=== PATIENT | female | born 1940 | race Caucasian/White ===

== ENCOUNTER 2018-03-31 08:48 | Inpatient (IN) ==
--- NOTE | 2018-03-31 09:12 | XR ---
EXAM DATE: 03/31/2018 8:49 AM EDT AGE/SEX: 89 years / Female INDICATIONS: Trauma alert. Found unresponsive CLINICAL DATA: This is the patient's initial encounter. Patient reports that signs and symptoms have been present for 1 day and indicates a pain score of Nonresponsive. MEDICAL/SURGICAL HISTORY: Non-responsive. Non-responsive. COMPARISON: No prior exams available for comparison. FINDINGS: Patient's on trauma board. There is an endotracheal tube in place which appears to be in good positio n. The tip is approximately 1 cm above the kamla. There is some atelectasis in the right lung base. The left lung is grossly clear. No definite pneumothorax is seen. The bony structures are grossly int act. CONCLUSION: 1. ET tube appears to be in good position. 2. There is atelectasis in the right lung base. 3. A CT chest will be performed for further evaluation. Electronically signed by: Jose Guadalupe Smallwood MD 03/31/2018 9:10 AM EDT
[2018-03-31 09:13] LABS: Hematocrit 46.5 % (35.0-46.0); Hemoglobin 15.2 gm/dL (11.6-15.3); Mean Corpuscular HGB Conc 32.8 % (32.0-36.0); Mean Corpuscular Hemoglobin 29.4 pg (27.0-34.0); Mean Corpuscular Volume 89.6 fL (80.0-100.0); Mean Platelet Volume 7.1 fL (7.0-11.0); Platelet Count 181 th/mm3 (150-450); Red Blood Count 5.19 mil/mm3 (4.00-5.30); Red Cell Distribution Width 14.5 % (11.6-17.2); White Blood Count 14.8 th/mm3 (4.0-11.0)
--- NOTE | 2018-03-31 09:13 | XR ---
EXAM DATE: 03/31/2018 8:49 AM EDT AGE/SEX: 89 years / Female INDICATIONS: Trauma alert. Found unresponsive today CLINICAL DATA: This is the patient's initial encounter. Patient reports that signs and symptoms have been present for 1 day and indicates a pain score of Nonresponsive. MEDICAL/SURGICAL HISTORY: Non-responsive. Non-responsive. COMPARISON: No prior exams available for comparison. FINDINGS: Patient's on a trauma board. The bony structures are grossly intact. There is good alignment at both hip joints. There is good alignment of the SI joints and pubic symphysis. CONCLUSION: The bony structures are grossly intact. A CT Abdomen and pelvis will be performed for further evaluat ion. Electronically signed by: Jose Guadalupe Smallwood MD 03/31/2018 9:12 AM EDT
[2018-03-31 09:26] LABS: Activated Partial Thrombo Time 22.4 sec (24.3-30.1); INR 1.1 Ratio; Prothrombin Time 11.1 sec (9.8-11.6)
--- NOTE | 2018-03-31 09:35 | CT ---
EXAM DATE: 03/31/2018 9:06 AM EDT AGE/SEX: 89 years / Female INDICATIONS: Trauma alert, found unresponsive CLINICAL DATA: This is the patient's initial encounter. Patient reports that signs and symptoms have been present for 1 day and indicates a pain score of Nonresponsive. MEDICAL/SURGICAL HISTORY: Non-responsive. Non-responsive. ORAL CONTRAST: No oral contrast ingested. RADIATION DOSE: 5.62 CTDI (mGy) ; Combined studies COMPARISON: [facility], CHEST 1V SINGLE AP, 03/31/2018. . TECHNIQUE: Multiple contiguous axial images were obtained through the abdomen and pelvis following b olus infusion of 95 ml Omnipaque 350 (iohexol) nonionic water-soluble contrast as a cumulative dose for multiple exams. No oral contrast ingested. Using automated exposure control and adjustment of t he mA and/or kV according to patient size, radiation dose was kept as low as reasonably achievable to obtain optimal diagnostic quality images. DICOM format image data is available electronically for r eview and comparison. FINDINGS: Lower Lungs: The visualized lower lungs are clear. There is a calcified granuloma in the posterior le ft lower lobe. Liver: The liver has a homogeneous density small benign-appearing cyst in the left lobe. There is no dilation of the biliary tree. There is mild hepatic steatosis. The gallbladder is unremarkable in mk earance. Spleen: Homogeneous density without enlargement. Pancreas: Unremarkable without mass or calcification. Kidneys: Normal in size and shape. No evidence of a solid mass or hydronephrosis. There are small si mple appearing cysts. Adrenal Glands: Unremarkable. Aorta: The aorta and proximal iliac vessels are grossly unremarkable without aneurysmal dilation. Bowel/Mesentery: No oral contrast was given limiting the sensitivity. There are multiple diverticuli in the sigmoid colon. The cecum and sigmoid colon have a normal configuration. Abdominal Wall: Intact. Retroperitoneum: No evidence of adenopathy in the retrocrural, para-aortic, or deep pelvic regions. Bladder: Contours are smooth. Reproductive Organs: No abnormal masses or calcifications seen. Inguinal: The inguinal region is unremarkable without evidence of adenopathy. Bony Structures: Osteopenia, degenerative change and scoliosis are present. There is no visualized f racture. CONCLUSION: 1. No evidence of visceral injury. 2. Mild hepatic steatosis with simple appearing cyst in the left lobe of liver. 3. Osteopenia, degenerative change and scoliosis are present. Electronically signed by: James Strong MD 03/31/2018 9:33 AM EDT
--- NOTE | 2018-03-31 09:37 | ED ---
HPI General Stated Complaint: Trauma Time Seen by Provider: 03/31/18 09:09 Source: EMS Limitations: altered mental status and physical limitation History of Present Illness HPI narrative: Is an 78-year-old woman, AKRafaela Phelps date of 1939, presents to the [facility] department after being found down. EMS states large number of pills next to her. Unclear she is on blood thinners or not. Unable to access any records in our system on her. Neighbors last saw her the night before. Dinner was uneven on the table.. She had been down for a while. She had blood on the floor. No other obvious external trauma. Small abrasion to the left elbow. Found laying on her left side. Related Data Allergies Allergy/AdvReac Type Severity Reaction Status Date / Time No Allergy Information Allergy Unverified 03/31/18 08:49 Available Review of Systems ROS Unobtainable ROS Unobtainable: unobtainable due to endotracheal tube and unobtainable due to mental condition Exam Narrative Exam Narrative: GENERAL: 78-year-old woman, obtunded. Intubated. SKIN: Scattered chronic appearing ecchymosis on the both upper extremities. There appears to be some morbidity and skin erythema on the left hip over the iliac crest. HEAD: Atraumatic. Normocephalic. EYES: Pupils equal and round. No scleral icterus. No injection or drainage. ENT: No nasal bleeding or discharge. Mucous membranes pink and moist. NECK: Cervical collar in place. No obvious abnormalities. CARDIOVASCULAR: Regular rate and rhythm. No murmur appreciated. RESPIRATORY: Breathing some spontaneously. Coarse breath sounds. ET tube in place. GASTROINTESTINAL: Mild abdominal distention MUSCULOSKELETAL: No obvious deformities. No edema. No obvious fractures. NEUROLOGICAL: Obtunded. Only response to painful stimulus is trace withdrawal from the right lower extremity to nailbed pressure. No movement of the other extremities. Medical Decision Making MDM Narrative Medical decision making narrative: 78-year-old woman, no medical history, found down, brought in as a trauma alert. No definite evidence of traumatic injuries. Suspect large stroke. Initial read of CT head is negative for large bleed is suspected. Pending final read. Spoke with Dr. Xavier. Dr. Lujan and hours at the bedside. Patient will be admitted to the geological specialist service. Medical Screen Exam Complete: Yes Emergency Medical Condition: Yes Lab Data Result diagrams: 03/31/18 08:55 Lab Results 03/31/18 03/31/18 03/31/18 Range/Units 08:55 08:55 08:55 WBC 14.8 H (4.0-11.0) th/mm3 RBC 5.19 (4.00-5.30) mil/mm3 Hgb 15.2 (11.6-15.3) gm/dL POC Hgb (Calc) 15.6 H (11.6-15.3) g/dL Hct 46.5 H (35.0-46.0) % POC Hct 46.0 (35-46.0) % MCV 89.6 (80.0-100.0) fL MCH 29.4 (27.0-34.0) pg MCHC 32.8 (32.0-36.0) % RDW 14.5 (11.6-17.2) % Plt Count 181 (150-450) th/mm3 MPV 7.1 (7.0-11.0) fL Prelim Diff (Auto) Manual diff required Differential Comment . PT 11.1 (9.8-11.6) sec INR 1.1 Ratio APTT 22.4 L (24.3-30.1) sec POC Sodium 129 L (137-144) mmol/L POC Potassium 3.9 (3.6-5.0) mmol/L POC Chloride 92 L (102-111) mmol/L POC BUN 5 (5-21) mg/dL POC Creatinine 0.7 (0.6-1.3) mg/dL POC Glucose 106 (68-110) mg/dL Blood Type 03/31/18 Range/Units 08:55 WBC (4.0-11.0) th/mm3 RBC (4.00-5.30) mil/mm3 Hgb (11.6-15.3) gm/dL POC Hgb (Calc) (11.6-15.3) g/dL Hct (35.0-46.0) % POC Hct (35-46.0) % MCV (80.0-100.0) fL MCH (27.0-34.0) pg MCHC (32.0-36.0) % RDW (11.6-17.2) % Plt Count (150-450) th/mm3 MPV (7.0-11.0) fL Prelim Diff (Auto) Differential Comment PT (9.8-11.6) sec INR Ratio APTT (24.3-30.1) sec POC Sodium (137-144) mmol/L POC Potassium (3.6-5.0) mmol/L POC Chloride (102-111) mmol/L POC BUN (5-21) mg/dL POC Creatinine (0.6-1.3) mg/dL POC Glucose (68-110) mg/dL Blood Type A Positive Imaging Data Radiologist's impression: Chest X-Ray 03/31/18 08:49 CONCLUSION: 1. ET tube appears to be in good position. 2. There is atelectasis in the right lung base. 3. A CT chest will be performed for further evaluation. Pelvis X-Ray 03/31/18 08:49 CONCLUSION: The bony structures are grossly intact. A CT Abdomen and pelvis will be performed for further evaluation. Abdomen/Pelvis CT 03/31/18 08:57 CONCLUSION: 1. No evidence of visceral injury. 2. Mild hepatic steatosis with simple appearing cyst in the left lobe of liver. 3. Osteopenia, degenerative change and scoliosis are present. Head CT 03/31/18 09:09 CONCLUSION: 1. Negative trauma study. . Discharge Plan Discharge Disposition Patient Disposition: 30 Still Patient Physicians Team ED Provider: Lisandro Hull Attending Provider: Dimitrios Olivas Status ED Status: Admitted Patient
--- NOTE | 2018-03-31 09:39 | CT ---
EXAM DATE: 03/31/2018 9:10 AM EDT AGE/SEX: 89 years / Female INDICATIONS: Trauma alert, found unresponsive CLINICAL DATA: This is the patient's initial encounter. Patient reports that signs and symptoms have been present for 1 day and indicates a pain score of Nonresponsive. MEDICAL/SURGICAL HISTORY: Non-responsive. Non-responsive. RADIATION DOSE: 66.34 CTDI (mGy) COMPARISON: No prior exams available for comparison. TECHNIQUE: CT of the head without contrast. Using automated exposure control and adjustment of the mA and/or kV according to patient size, radiation dose was kept as low as reasonably achievable to ob tain optimal diagnostic quality images. DICOM format image data is available electronically for revi ew and comparison. FINDINGS: Cerebrum: The ventricles are normal for age. No evidence of midline shift, mass lesion, hemorrhage or acute infarction. No extraaxial fluid collections are seen. Posterior Fossa: The cerebellum and brainstem are intact. The 4th ventricle is midline. The cerebe llopontine angle is unremarkable. Extracranial: The visualized portion of the orbits is intact. Skull: The calvaria is intact. No evidence of skull fracture. CONCLUSION: 1. Negative trauma study. . Electronically signed by: James Strong MD 03/31/2018 9:38 AM EDT
--- NOTE | 2018-03-31 09:46 | CT ---
EXAM DATE: 03/31/2018 9:06 AM EDT AGE/SEX: 89 years / Female INDICATIONS: Trauma alert, found unresponsive CLINICAL DATA: This is the patient's initial encounter. Patient reports that signs and symptoms have been present for 1 day and indicates a pain score of Nonresponsive. MEDICAL/SURGICAL HISTORY: Non-responsive. Non-responsive. RADIATION DOSE: 5.24 CTDI (mGy) ; Combined studies COMPARISON: No prior exams available for comparison. TECHNIQUE: Multiple contiguous axial images were obtained through the chest during bolus infusion of 95 ml Omnipaque 350 (iohexol) nonionic water-soluble contrast as a cumulative dose for multiple exa ms. Images were obtained in suspended respiration using multiple row detector helical technique. U sing automated exposure control and adjustment of the mA and/or kV according to patient size, radiati on dose was kept as low as reasonably achievable to obtain optimal diagnostic quality images. DICOM format image data is available electronically for review and comparison. FINDINGS: Lungs: There is underlying emphysema. There is a calcified granuloma in the posterior left lower lob e. There is a 2.8 x 1.8 cm soft tissue mass along the right side of the mediastinum anterior to the h ilum. Mediastinum: There is good visualization of the great vessels of the middle mediastinum. No evidenc e of mediastinal or hilar adenopathy/mass. Pleurae: No evidence of focal thickening or pleural effusion. Axillae: Unremarkable. Bony Structures: Osteopenia, degenerative change and scoliosis are present. There are 3 moderate to severe compression fracture deformities in the lower thoracic spine which appears sclerotic. Degenera tive disc changes present as well. Miscellaneous: The examination was extended to include the upper abdomen, and both adrenal glands ar e normal in size and configuration. Mild hepatic steatosis is noted in the liver. There is a simple a ppearing cyst in the left lobe measuring approximately 1 cm. CONCLUSION: 1. No acute visceral injury. 2. 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 3. 3 moderate to severe compression fracture deformities in the lower thoracic spine with sclerosis. These likely are chronic. Electronically signed by: James Strong MD 03/31/2018 9:45 AM EDT
--- NOTE | 2018-03-31 09:49 | CT ---
EXAM DATE: 03/31/2018 9:10 AM EDT AGE/SEX: 89 years / Female INDICATIONS: Trauma alert, found unresponsive CLINICAL DATA: This is the patient's initial encounter. Patient reports that signs and symptoms have been present for 1 day and indicates a pain score of Nonresponsive. MEDICAL/SURGICAL HISTORY: Non-responsive. Non-responsive. RADIATION DOSE: 24.98 CTDI (mGy) COMPARISON: No prior exams available for comparison. TECHNIQUE: Contiguous axial images were obtained using helical multirow detector technique. The vol umetric data was post-processed with multiplanar reconstruction in oblique axial, sagittal, and coron al planes. Using automated exposure control and adjustment of the mA and/or kV according to patient s ize, radiation dose was kept as low as reasonably achievable to obtain optimal diagnostic quality grace ges. DICOM format image data is available electronically for review and comparison. FINDINGS: Vertebrae: Normal vertebral body height. There is diffuse osteopenia. Discs: Degenerative disc changes are present at the C4-5, C5-6 and C6-7 levels with disc spac e narrowing and hypertrophic change. Alignment: There is a mild grade 1 anterior spondylolisthesis of C7 on T1 of approximately 2 to 3 mm . There is mild retrolisthesis of C4 on C5 of 1 to 2 mm. The axial images demonstrate that the vertebral bodies and posterior elements are intact with no evid ence of fracture. The prevertebral soft tissues within normal limits. An endotracheal tube is present . There are disc osteophyte complexes at C4-5, C5-6 and C6-7 levels with mass effect on the anterior thecal sac. CONCLUSION: 1. No acute fracture. 2. Mild anterior spondylolisthesis of C7 on T1 and mild retrolisthesis of C4 on C5. 3. Degenerative disc changes. Electronically signed by: James Strong MD 03/31/2018 9:48 AM EDT
[2018-03-31 09:50] LABS: Lymphocytes 4 % (9-44); Monocytes 5 % (0-8)
[2018-03-31 09:53] LABS: Burr Cells 1+; Ovalocytes 1+; Platelet Estimate Normal (Normal); Platelet Morphology Normal (Normal)
[2018-03-31 09:57] LABS: CKMB Percent 1.4 % (0.0-4.0); Creatine Kinase MB 18.5 ng/mL (0.5-3.6)
[2018-03-31] MEDS ORDERED: Bisacodyl 10 MG Supp RECTAL PRN (10:04)
--- NOTE | 2018-03-31 10:21 | MH ---
cc: Wander Dennison MD DATE OF ADMISSION: 03/31/2018 DATE OF TRAUMA: 03/31/2018. CHIEF COMPLAINT: Trauma Alert. HISTORY OF PRESENT ILLNESS: The patient is an elderly, 68-year-old female, who was brought to [facility] as a Trauma Alert. She was found down in her home with a small amount of blood on the floor. She was also, of note, found to be a GCS of 3 on initial evaluation, and there was high suspicion of trauma at that time. The patient was brought in as a Trauma Alert level 1 due to altered mental status. The patient had a stable blood pressure and was tachycardic. The patient underwent RSI intubation. Upon arrival, the patient was verified to have an intact airway with endotracheal tube, and had a heart rate into the 130s, and blood pressure was hypertensive. The sats were 100% on a ventilator. Per EMS report, the patient did have some alcohol in the home, also had a large amount of medications on the dining room table. The patient also had uneaten dinner from last night and neighbors reported not seeing the patient overnight. Review of systems, past medical and surgical history, allergies, medications, social and family history were all unable to obtain due to the patient's altered mental status. PHYSICAL EXAMINATION: VITAL SIGNS: Temperature is 97 degrees rectal, heart rate sinus tachycardic and over 100. Blood pressure was systolic sustained over 120. GENERAL: The patient is a chronically and acutely ill-appearing female, intubated in the trauma bay. HEENT: Head is normocephalic, atraumatic. Pupils are sluggish, but bilaterally reactive. Oral cavity is endotracheally intubated. Midface is stable. NECK: Cervical collar is in place. Cervical spine is without deformity. CHEST: Chest wall stable without deformity. Breath sounds present bilaterally. HEART: Tachycardic, no murmurs. ABDOMEN: Soft. No seatbelt sign. No hepatosplenomegaly. No signs of trauma. FAST exam is negative x4 views. MUSCULOSKELETAL: Pelvis is stable without deformity. EXTREMITIES: Show chronic edema. There is an IO in the left tibia. There is some chronic ecchymosis and bruising, indicative of chronic anticoagulation use. No acute ecchymosis or signs of trauma. No deformity to 4 extremities. BACK: No thoracic or lumbar deformity. NEUROLOGIC: The patient's GCS is 6 (E1, V1, M4). Patient responds by withdrawing of the right lower extremity to pain. LABORATORY VALUES: White blood cell count 14, hemoglobin 15.2. INR 1.1. Creatinine is 0.7, glucose 106, sodium 129. IMAGING: CT scan of the patient's head shows no acute intracranial trauma. A CT scan of the patient's abdomen and pelvis shows no evidence of trauma. ASSESSMENT AND PLAN: The patient is an elderly female found down at home with chronic medical issues, possible alcohol use, GCS 6, intubated, hemodynamically unstable with hypothermia and tachycardia. The patient has no signs of a traumatic injury. The patient clearly had a medical event leading to her clinical condition, and the patient will be admitted to the medical bobtailer service. We will defer to the medical service for further care and transfer to their service. Dr. uHll discussed the patient with Dr. Olivas at 9:45 a.m. MD LEELA Prado/rh , 09:51 AM , 10:03 AM
--- NOTE | 2018-03-31 10:31 | P.HPCC ---
History of Present Illness Service: Critical care medicine Chief Complaint: Unresponsive, probable stroke History of Present Illness: Disheveled 78-year-old woman found down by EMS who state a large number of pills were next to her. Neighbors last saw her the night before. Required intubation and mechanical ventilation because of an inability to protect her airway. Left side is flaccid and her eyes are deviated to the left side, with intermittent horizontal nystagmus. CAT scan of the head without acute injury. The remainder of the traumagram is negative. I have met her on her arrival to the [facility]. - Diagnosis (1) Encephalopathy acute (2) CVA (cerebral vascular accident) (3) Respiratory failure Inpatient Certification: I certify that the inpatient services were ordered in accordance with Medicare regulations governing the order. This includes certification that hospital inpatient services are reasonable and necessary and in the case of services not specified as inpatient-only under 42 CFR 419.22(n), that they are appropriately provided as inpatient services in accordance to with the 2-midnight benchmark under 43 CFR 412.3(e) Estimated Total Length of Stay (Days): 5 Plans for Post Hospital Care: SNF Review of Systems Unavailable and unobtainable. Patient unresponsive. No family. Medications and Allergies Active Medications: Active Medications Acetaminophen (Tylenol) 650 mg PO Q6H PRN PRN Reason: PAIN 1-10 AND/OR FEVER >101F Al Hydroxide/Mg Hydroxide (Milk Of Candice Liaron) 30 ml PO Q12H PRN PRN Reason: Mild Constipation Albuterol (Duoneb Neb (Prn)) 1 ampul NEB Q2HR NEB PRN PRN Reason: WHEEZING Bisacodyl (Dulcolax Supp) 10 mg RECTAL DAILY PRN PRN Reason: SEVERE CONSITIPATION Chlorhexidine Gluconate (Peridex 0.12% Oral Kit) 15 ml OROPHARYNG BID@0800, 2000 [facility] Chlorhexidine Gluconate (Chlorhexidine 2% Cloth) 3 pack TOPICAL DAILY@0400 [facility] Stop: 04/06/18 03:59 Chlorhexidine Gluconate (Chlorhexidine 2% Cloth) 3 pack TOPICAL DAILY@0400 PRN PRN Reason: Extra cloth needed Stop: 04/06/18 03:59 Famotidine (Pepcid Pf Inj) 20 mg IV.PUSH Q12HR [facility] Heparin Sodium (Porcine) (Heparin Inj) 5,000 units SQ Q12H [facility] Sodium Chloride (Ns Inj) 1,000 mls @ 84 mls/hr IV.CONT .[id number] [facility] Lactulose (Lactulose Liq) 30 ml PO DAILY PRN PRN Reason: SEVERE CONSITIPATION Miscellaneous Medication () 1 each OROPHARYNG 0000,0400,1200,1600 [facility] Morphine Sulfate (Morphine Inj) 2 mg IV.PUSH Q2H PRN PRN Reason: PAIN SCALE 6 TO 10 Senna/Docusate Sodium (Ce-Colace) 1 tab PO BID [facility] Sennosides (Senokot) 17.2 mg PO Q12H PRN PRN Reason: Moderate Constipation Sodium Chloride (Ns Flush) 2 ml IV.FLUSH BID [facility] Sodium Chloride (Ns Flush) 2 ml IV.FLUSH PRN PRN PRN Reason: FLUSH AFTER USING IV ACCESS Allergies Allergy/AdvReac Type Severity Reaction Status Date / Time No Allergy Information Allergy Unverified 03/31/18 08:49 Available Results - Labs CBC & Chem 7: 03/31/18 08:55 Labs: Short CBC 03/31/18 Range/Units 08:55 WBC 14.8 H (4.0-11.0) th/mm3 Hgb 15.2 (11.6-15.3) gm/dL Hct 46.5 H (35.0-46.0) % Plt Count 181 (150-450) th/mm3 Cardiac Enzymes 03/31/18 Range/Units 08:55 Total Creatine Kinase 1368 H (26-192) U/L CK-MB (CK-2) 18.5 H (0.5-3.6) ng/mL - Imaging Impressions Chest X-Ray 03/31/18 08:49 CONCLUSION: 1. ET tube appears to be in good position. 2. There is atelectasis in the right lung base. 3. A CT chest will be performed for further evaluation. Pelvis X-Ray 03/31/18 08:49 CONCLUSION: The bony structures are grossly intact. A CT Abdomen and pelvis will be performed for further evaluation. Abdomen/Pelvis CT 03/31/18 08:57 CONCLUSION: 1. No evidence of visceral injury. 2. Mild hepatic steatosis with simple appearing cyst in the left lobe of liver. 3. Osteopenia, degenerative change and scoliosis are present. Chest CT 03/31/18 08:57 CONCLUSION: 1. No acute visceral injury. 2. 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 3. 3 moderate to severe compression fracture deformities in the lower thoracic spine with sclerosis. These likely are chronic. Cervical Spine CT 03/31/18 09:09 CONCLUSION: 1. No acute fracture. 2. Mild anterior spondylolisthesis of C7 on T1 and mild retrolisthesis of C4 on C5. 3. Degenerative disc changes. Head CT 03/31/18 09:09 CONCLUSION: 1. Negative trauma study. . Exam Vital signs: Vital Signs 03/31/18 09:11 Respiratory Rate 15 Pulse Oximetry 100 Narrative: Physical exam: GENERAL: Disheveled 78-year-old woman, unresponsive, intubated. SKIN: Scattered chronic appearing ecchymosis on the both upper extremities. Same over left hip. HEAD: Atraumatic. Normocephalic. EYES: Pupils equal and round. No scleral icterus. No injection or drainage. Horizontal nystagmus. ENT: No nasal bleeding or discharge. Mucous membranes pink and moist. Oral tracheal intubation in place. NECK: Cervical collar in place. No obvious abnormalities. CARDIOVASCULAR: Regular rate and rhythm. Normal S1-S2. No murmur appreciated. No JVD. RESPIRATORY: Mechanically ventilated. Coarse breath sounds with few mobile secretions. GASTROINTESTINAL: Mild abdominal distention, no guarding, bowel sounds few. MUSCULOSKELETAL: No obvious deformities. No edema. No obvious fractures. NEUROLOGICAL: Obtunded. Pupils 3 mm with horizontal nystagmus to the left side. Left arm and leg are flaccid. Withdraws to right arm noxious stimulation and right leg noxious stimulation. Caprini VTE Risk Assessment Caprini VTE Risk Assessment: No/Low Risk (score <= 1) Caprini Risk Assessment Model: Point Value = 1 Point Value = 2 Point Value = 3 Point Value = 5 Age 41-60 Minor surgery BMI > 25 kg/m2 Swollen legs Varicose veins or History of unexplained or recurrent spontaneous Oral contraceptives or hormone replacement Sepsis (< 1 month) Serious lung disease, including pneumonia (< 1 month) Abnormal pulmonary function Acute myocardial infarction Congestive heart failure (< 1 month) History of inflammatory bowel disease Medical patient at bed rest Age 61-74 Arthroscopic surgery Major open surgery (> 45 min) Laparoscopic surgery (> 45 min) Malignancy Confined to bed (> 72 hours) Immobilizing plaster cast Central venous access Age >= 75 History of VTE Family history of VTE Factor V Leiden Prothrombin [id number] Lupus anticoagulant Anticardiolipin antibodies Elevated serum homocysteine Heparin-induced thrombocytopenia Other congenital or acquired thrombophilia Stroke (< 1 month) Elective arthroplasty Hip, pelvis, or leg fracture Acute spinal cord injury (< 1 month) Prophylaxis Regimen: Total Risk Factor Score Risk Level Prophylaxis Regimen 0-1 Low Early ambulation 2 Moderate Order ONE of the following: *Sequential Compression Device (SCD) *Heparin 5000 units SQ BID 3-4 Higher Order ONE of the following medications: *Heparin 5000 units SQ TID *Enoxaparin/Lovenox 40 mg SQ daily (WT < 150 kg, CrCl > 30 mL/min) *Enoxaparin/Lovenox 30 mg SQ daily (WT < 150 kg, CrCl > 10-29 mL/min) *Enoxaparin/Lovenox 30 mg SQ BID (WT < 150 kg, CrCl > 30 mL/min) AND/OR *Sequential Compression Device (SCD) 5 or more Highest Order ONE of the following medications: *Heparin 5000 units SQ TID (Preferred with Epidurals) *Enoxaparin/Lovenox 40 mg SQ daily (WT < 150 kg, CrCl > 30 mL/min) *Enoxaparin/Lovenox 30 mg SQ daily (WT < 150 kg, CrCl > 10-29 mL/min) *Enoxaparin/Lovenox 30 mg SQ BID (WT < 150 kg, CrCl > 30 mL/min) AND *Sequential Compression Device (SCD) Assessment and Plan - Problem List (1) Encephalopathy acute Code(s): G93.40 - Encephalopathy, unspecified Status: Acute (2) CVA (cerebral vascular accident) Code(s): I63.9 - Cerebral infarction, unspecified Status: Acute (3) Respiratory failure Code(s): J96.90 - Respiratory failure, unspecified, unspecified whether with hypoxia or hypercapnia Status: Acute - Assessment and Plan Plan: Plan: Neuro -repeat CAT scan after 24 hours -Consider MRI -Toxicology screen -Minimize sedation -EEG -Neurology consultation after 24 hours if no improvement -Baseline Keppra for possible nonconvulsive seizures Respiratory -PRVC ventilatory mode -ABG after 45 minutes -Withdrawal endotracheal tube by 4 cm. Cardiovascular -Tolerate blood pressure 160-220 Renal -Check creatine kinase -Dilute urine -Alkalinize if necessary GI -Nasogastric tube to low intermittent suction -P.o. meds down tube is acceptable Hematology -Serial hemoglobin determination ID -Culture for fevers -No evidence of infection at this time Prophylaxis -Chemical DVT prophylaxis with heparin subcu -Pepcid for GI ulcer prophylaxis Lines -Peripherals -Discontinue interosseous left lower leg Overall impression: This woman is critically ill with a major new neurological deficit and is ventilator dependent. Timelines this may be a simple stroke but we will pursue the avenues of potential drug overdose and trauma as well. Critical care time 42 minutes aside from procedures.
[2018-03-31] MEDS ORDERED: Midazolam Inj 5 MG/ML 1 ML Vial ONE (11:31)
[2018-03-31 11:42] LABS: ABG Base Excess -0.7 mmol/L (-2-2); ABG PCO2 40 mmHg (38-42); ABG PO2 86 mmHg (61-120)
[2018-03-31] MEDS ORDERED: Sod Chloride 0.9% Inj 1,000 ML IV.SIG SCH (11:45)
[2018-03-31] MEDS: Sod Chloride 0.9% Inj 1,000 ML IV.CONT SCH (12:30)
--- NOTE | 2018-03-31 12:34 | XR ---
EXAM DATE: 03/31/2018 12:00 AM EDT AGE/SEX: 78 years / Female INDICATIONS: Decreased O2 sats. CLINICAL DATA: This is the patient's subsequent encounter. Patient reports that signs and symptoms h ave been present for 1 day and indicates a pain score of Nonresponsive. MEDICAL/SURGICAL HISTORY: Non-responsive. Non-responsive. COMPARISON: C, CHEST 1V SINGLE AP, 03/31/2018. . FINDINGS: The endotracheal tube and NG tube remain in place. There is some mild parenchymal changes overlying t he left lung. The right lung is grossly clear. No definite pneumothorax. The heart size is stable. No significant pleural effusions. The bony structures are stable. CONCLUSION: 1. The ET tube and NG tube are in good position. 2. Mild parenchymal changes are seen overlying the left lung. Electronically signed by: Jose Guadalupe Smallwood MD 03/31/2018 12:33 PM EDT
--- NOTE | 2018-03-31 14:45 | MG ---
cc: Shakila Garcia MD REFERRING: Dimitrios Olivas AGE: [age] years old. EEG NUMBER: [id number] In room 1326 with photic stimulation, 2 mg of Ativan at 11:30, intubated. CT negative 03/31/2018, per nursing, she had a seizure. Right hand started to shake, right leg then started and then went to the whole body. Apparently was found unresponsive with a large number of pills next to her. DESCRIPTION OF RECORD: There is an overall slowing in the background 2-3 Hz. Seen bilaterally. There is no epileptiform features. Hyperventilation not done. Photic stimulation, no driving response. IMPRESSION: Abnormal EEG due to severely suppressed background may be consistent with encephalopathic process. No epileptiform features. Clinical correlation. Shakila Garcia MD DF/ct , 02:32 PM , 02:38 PM
[2018-03-31] MEDS ORDERED: Phenylephrine Inj 40 MG in Sodium Chlor 0.9% Inj 496 ML IV.CONT PRN (16:00)
[2018-03-31] MEDS: Oral Hygiene Kit OROPHARYNG SCH (17:19)
[2018-03-31] MEDS: hydrALAZINE 50 MG Tablet PO SCH ×2 (17:19→17:28)
[2018-03-31] MEDS: Metoprolol Tartrate 25 MG Tablet PO SCH ×2 (17:20→17:28)
[2018-03-31] MEDS: Heparin - SQ 10,000 UNITS/ML Vial SQ SCH ×2 (17:20→23:03)
[2018-03-31] MEDS: levETIRAcetam 1000mg/100mL Inj 100 ML IV.SIG SCH (17:28)
[2018-03-31] MEDS: Acetaminophen 325 MG Tablet PO PRN ×2 (17:46→23:03)
--- NOTE | 2018-03-31 18:00 | P.CONNEU ---
History of Present Illness Service: Neurology Primary Care Provider: UNKNOWN Chief Complaint: Unresponsive, probable stroke History of Present Illness: 78-year-old female admitted for mental status changes onset unknown. Some question of "large pills" next to her when she was found. Intubated for airway protection. Currently critical care unit. She is noted to have a generalized convulsion this afternoon. Apparently had right gaze deviation during the seizure. CT brain scan negative. No further history from patient no family bedside. Medical chart reviewed. Mild leukocytosis, mild hyponatremia sodium 129. Review of Systems All other systems reviewed negative except as stated in HPI Medications and Allergies Active Medications: Active Medications Acetaminophen (Tylenol) 650 mg PO Q6H PRN PRN Reason: PAIN 1-10 AND/OR FEVER >101F Last Admin: 03/31/18 17:46 Dose: 650 mg Al Hydroxide/Mg Hydroxide (Milk Of Candice Walsh) 30 ml PO Q12H PRN PRN Reason: Mild Constipation Albuterol (Duoneb Neb (Prn)) 1 ampul NEB Q2HR NEB PRN PRN Reason: WHEEZING Bisacodyl (Dulcolax Supp) 10 mg RECTAL DAILY PRN PRN Reason: SEVERE CONSITIPATION Chlorhexidine Gluconate (Peridex 0.12% Oral Kit) 15 ml OROPHARYNG BID@0800, 2000 [facility] Chlorhexidine Gluconate (Chlorhexidine 2% Cloth) 3 pack TOPICAL DAILY@0400 [facility] Stop: 04/06/18 03:59 Chlorhexidine Gluconate (Chlorhexidine 2% Cloth) 3 pack TOPICAL DAILY@0400 PRN PRN Reason: Extra cloth needed Stop: 04/06/18 03:59 Clonidine HCl (Catapres) 0.1 mg PO Q6H PRN PRN Reason: SBP > 180 Famotidine (Pepcid Pf Inj) 20 mg IV.PUSH Q12HR [facility] Heparin Sodium (Porcine) (Heparin Inj) 5,000 units SQ Q12H [facility] Last Admin: 03/31/18 17:20 Dose: Not Given Hydralazine HCl (Apresoline) 50 mg PO TID [facility] Last Admin: 03/31/18 17:28 Dose: 50 mg Sodium Chloride (Ns Inj) 1,000 mls @ 84 mls/hr IV.CONT .[id number] [facility] Last Admin: 03/31/18 12:30 Dose: 84 mls/hr Phenylephrine HCl 40 mg/ (Sodium Chloride) 500 mls @ 30 mls/hr IV.CONT TITRATE PRN; Protocol PRN Reason: See Protocol Last Titration: 03/31/18 14:45 Dose: 0 mcg/min, 0 mls/hr Levetiracetam (Keppra 1000 Mg/100 Ml Premix) 100 mls @ 400 mls/hr IV.SIG Q12H [facility] Last Admin: 03/31/18 17:28 Dose: 400 mls/hr Lactulose (Lactulose Liq) 30 ml PO DAILY PRN PRN Reason: SEVERE CONSITIPATION Lorazepam (Ativan Inj) 1 mg IV.PUSH Q15M PRN PRN Reason: SEIZURES Metoprolol Tartrate (Lopressor) 25 mg PO TID [facility] Last Admin: 03/31/18 17:28 Dose: 25 mg Miscellaneous Medication () 1 each OROPHARYNG 0000,0400,1200,1600 [facility] Last Admin: 03/31/18 17:19 Dose: 1 each Morphine Sulfate (Morphine Inj) 2 mg IV.PUSH Q2H PRN PRN Reason: PAIN SCALE 6 TO 10 Senna/Docusate Sodium (Ce-Colace) 1 tab PO BID [facility] Sennosides (Senokot) 17.2 mg PO Q12H PRN PRN Reason: Moderate Constipation Sodium Chloride (Ns Flush) 2 ml IV.FLUSH BID [facility] Sodium Chloride (Ns Flush) 2 ml IV.FLUSH PRN PRN PRN Reason: FLUSH AFTER USING IV ACCESS Allergies Allergy/AdvReac Type Severity Reaction Status Date / Time No Allergy Information Allergy Unverified 03/31/18 08:49 Available Exam Vital signs: Vital Signs 03/31/18 09:11 03/31/18 12:56 03/31/18 15:42 Respiratory Rate 15 17 25 H Pulse Oximetry 100 100 92 L Intake & Output 03/30/18 03/31/18 03/31/18 18:59 06:59 18:59 Weight 65.1 kg Narrative: GENERAL: in NAD, SKIN: Warm and dry. HEAD: Atraumatic. Normocephalic. EYES: Pupils equal and round. No scleral icterus. ENT: No nasal bleeding or discharge. Mucous membranes pink and moist. NECK: Trachea midline. No JVD. CARDIOVASCULAR: Regular rate and rhythm. RESPIRATORY: Intubated no accessory muscle use. GASTROINTESTINAL: Abdomen soft, non-tender, nondistended. MUSCULOSKELETAL: Coma state nonresponsive not following nonverbal, not on any sedation at present time, sluggish reactive pupils no significant gaze deviation minimal withdrawal in the upper or lower extremities plantarflexion no clonus elicited PSYCHIATRIC: Intubated Results - Labs CBC & Chem 7: 03/31/18 08:55 Labs: Laboratory Results - last 24 hr 03/31/18 03/31/18 03/31/18 08:55 08:55 08:55 WBC 14.8 H RBC 5.19 Hgb 15.2 POC Hgb (Calc) 15.6 H Hct 46.5 H POC Hct 46.0 MCV 89.6 MCH 29.4 MCHC 32.8 RDW 14.5 Plt Count 181 MPV 7.1 Prelim Diff (Auto) Manual diff required WBC Differential Manual diff final Seg Neuts % (Manual) 83 H Band Neuts % (Manual) 8 H Lymphocytes % (Manual) 4 L Monocytes % (Manual) 5 Abs Neuts (Manual) 13.5 H Differential Comment . Platelet Estimate Normal Platelet Morphology Normal Ovalocytes 1+ H Dami Cells 1+ H PT 11.1 INR 1.1 APTT 22.4 L Puncture Site Patient Temperature O2 Saturation ABG pH ABG pCO2 ABG pO2 ABG HCO3 ABG O2 Content ABG Base Excess ABG Methemoglobin Bryce Test Hemoglobin Carboxyhemoglobin O2 Delivery Device Vent Setting Inspired O2 Critical Value POC Sodium 129 L POC Potassium 3.9 POC Chloride 92 L POC BUN 5 POC Creatinine 0.7 POC Glucose 106 Total Creatine Kinase CK-MB (CK-2) CK-MB (CK-2) % Blood Type Antibody Screen 03/31/18 03/31/18 03/31/18 08:55 08:55 11:15 WBC RBC Hgb POC Hgb (Calc) Hct POC Hct MCV MCH MCHC RDW Plt Count MPV Prelim Diff (Auto) WBC Differential Seg Neuts % (Manual) Band Neuts % (Manual) Lymphocytes % (Manual) Monocytes % (Manual) Abs Neuts (Manual) Differential Comment Platelet Estimate Platelet Morphology Ovalocytes [place] Cells PT INR APTT Puncture Site Right radial Patient Temperature 98.6 O2 Saturation 94 ABG pH 7.39 ABG pCO2 40 ABG pO2 86 ABG HCO3 24 ABG O2 Content 20.0 ABG Base Excess -0.7 ABG Methemoglobin 1.0 Bryce Test Present Hemoglobin 15.1 Carboxyhemoglobin 1.2 O2 Delivery Device Ventilator Vent Setting Prvc/ac Inspired O2 100 Critical Value No POC Sodium POC Potassium POC Chloride POC BUN POC Creatinine POC Glucose Total Creatine Kinase 1368 H CK-MB (CK-2) 18.5 H CK-MB (CK-2) % 1.4 Blood Type A Positive Antibody Screen Negative - Imaging Impressions Chest X-Ray 03/31/18 00:00 CONCLUSION: 1. The ET tube and NG tube are in good position. 2. Mild parenchymal changes are seen overlying the left lung. Chest X-Ray 03/31/18 08:49 CONCLUSION: 1. ET tube appears to be in good position. 2. There is atelectasis in the right lung base. 3. A CT chest will be performed for further evaluation. Pelvis X-Ray 03/31/18 08:49 CONCLUSION: The bony structures are grossly intact. A CT Abdomen and pelvis will be performed for further evaluation. Abdomen/Pelvis CT 03/31/18 08:57 CONCLUSION: 1. No evidence of visceral injury. 2. Mild hepatic steatosis with simple appearing cyst in the left lobe of liver. 3. Osteopenia, degenerative change and scoliosis are present. Chest CT 03/31/18 08:57 CONCLUSION: 1. No acute visceral injury. 2. 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 3. 3 moderate to severe compression fracture deformities in the lower thoracic spine with sclerosis. These likely are chronic. Cervical Spine CT 03/31/18 09:09 CONCLUSION: 1. No acute fracture. 2. Mild anterior spondylolisthesis of C7 on T1 and mild retrolisthesis of C4 on C5. 3. Degenerative disc changes. Head CT 03/31/18 09:09 CONCLUSION: 1. Negative trauma study. . Review/Management - Diagnosis (1) Encephalopathy acute Code(s): G93.40 - Encephalopathy, unspecified Status: Acute Current Visit: Yes (2) Seizure Code(s): R56.9 - Unspecified convulsions Status: Acute Current Visit: Yes (3) Respiratory failure Code(s): J96.90 - Respiratory failure, unspecified, unspecified whether with hypoxia or hypercapnia Status: Acute Current Visit: Yes - Review/Management Plan: Etiology for encephalopathy; toxic metabolic versus cerebral ischemia versus toxic ingestion/EtOH withdrawal Recommendation EEG MRI brain IV acyclovir IV Celebrex CSF studies Follow exam Discussed with RN
[2018-03-31] MEDS: Famotidine PF Inj 20 MG/2 ML Vial IV.PUSH SCH (20:32)
[2018-03-31] MEDS: Senna/Docusate Sodium 8.6/50 MG Tablet PO SCH (20:32)
[2018-03-31] MEDS: Chlorhexidine 0.12% Oral Kit 15 ML UDC OROPHARYNG SCH (20:33)
[2018-03-31] MEDS: ACYCLOVIR IV.SIG SCH (20:33)
[2018-03-31] MEDS: Fosphenytoin Inj 200 MGPE in Sodium Chlor 0.9% Inj 50 ML IV.SIG SCH (20:33)
[2018-03-31] MEDS: SODIUM CHLOR 0.9% IV.SIG SCH (20:33)
[2018-03-31] MEDS ORDERED: Gadobutrol PF 10 MMOL/10 ML Vial (for RAD) IV.SIG ONE (21:20)
[2018-03-31 21:39] LABS: Free T4 (Free Thyroxine) 1.08 ng/dL (0.76-1.46); Vitamin B12 1197 pg/mL (193-986)
--- NOTE | 2018-03-31 22:06 | MR ---
EXAM DATE: 03/31/2018 7:53 PM EDT AGE/SEX: 78 years / Female INDICATIONS: CVA. CLINICAL DATA: This is the patient's initial encounter. Patient reports that signs and symptoms have been present for 1 day and indicates a pain score of Nonresponsive. MEDICAL/SURGICAL HISTORY: Non-responsive. Non-responsive. COMPARISON: [facility] [place], MR HEAD W & W/O CONTRAST, 03/31/2018. . TECHNIQUE: 3D [id number] MRA was performed. Source images, multiplanar STS MIP, and 3D volum e MIP reconstructions were reviewed. FINDINGS: There is excellent visualization of the major intracranial arteries out to the second-order branch ve ssels. The internal carotid are patent and seen to normally bifurcate into the anterior and middle ce rebral arteries. The vertebral arteries are seen to combined to form the basilar artery. The basilar artery primarily ends as the left posterior cerebral artery. The right posterior cerebral artery ta es from the right internal carotid artery. This is a normal variant. There does appear to be some decreased caliber and signal within the anterior right M2 segment there is a small filling defect seen in the distal anterior right M2 segment. CONCLUSION: Irregularity and decreased caliber at the anterior right M2 segment. There is a small filling defect. However the distal flow is present. Electronically signed by: Po Ascencio MD 03/31/2018 10:05 PM EDT
--- NOTE | 2018-03-31 22:13 | MR ---
EXAM DATE: 03/31/2018 7:53 PM EDT AGE/SEX: 78 years / Female INDICATIONS: CVA. CLINICAL DATA: This is the patient's initial encounter. Patient reports that signs and symptoms have been present for 1 day and indicates a pain score of Nonresponsive. MEDICAL/SURGICAL HISTORY: Non-responsive. Non-responsive. COMPARISON: [facility] [place], MRA HEAD W/O CONTRAST, 03/31/2018. [facility] [place], CT HEAD W/O CONTRAST, 03/31/2018. . TECHNIQUE: Multiplanar, multisequence examination of the brain was performed without and with 10 ml G adavist (gadobutrol) contrast as a single exam dose. FINDINGS: Cerebrum: There is abnormal signal seen throughout the gyri in the cerebral hemispheres being worse posteriorly in the posterior temporal and occipital lobes. There is increased signal seen within the thalami. This increased signal seen in the posterior cerebellar hemisphere centrally. These findings are concerning for generalized hypoxia. The ventricles are normal for age. No evidence of midline sh ift, mass lesion, hemorrhage or acute infarction. No extraaxial fluid collections are seen. The pit uitary gland and suprasellar cistern are normal in configuration. White Matter: No significant signal abnormalities are seen in the white matter. Posterior Fossa: Again noted is the increased signal on the FLAIR images within the central cerebella r hemispheres. This could be in the dentate nuclei. The brainstem is intact. The 4th ventricle is mi dline. The cerebellopontine angle is unremarkable. The cerebellar tonsils are normal in position. Diffusion Imaging: No focal areas of restricted diffusion are seen. No evidence of acute infarction . Extracranial: The visualized portions of the orbits and paranasal sinuses are unremarkable. Post Contrast: No abnormal areas of parenchymal or dural enhancement. No evidence of blood-brain ba rrier breakdown. CONCLUSION: Abnormal signal seen in the montanez matter of the sulci throughout the cerebral hemispheres, thalami, an d at the posterior central aspects of the cerebellar hemispheres. The symmetric appearance is concern ing for hypoxia. An area of acute infarction on the diffusion-weighted images is not seen. Electronically signed by: Po Ascencio MD 03/31/2018 10:12 PM EDT
--- NOTE | 2018-03-31 22:15 | MR ---
EXAM DATE: 03/31/2018 7:53 PM EDT AGE/SEX: 78 years / Female INDICATIONS: . Stenosis. CLINICAL DATA: This is the patient's initial encounter. Patient reports that signs and symptoms have been present for 1 day and indicates a pain score of Nonresponsive. MEDICAL/SURGICAL HISTORY: Non-responsive. Non-responsive. [place] [facility] [place]. . TECHNIQUE: 10 ml Gadavist (gadobutrol) contrast infused MRA (single exam dose) of the extracranial circulation was performed using a neurovascular coil. Postprocessing was performed, including rotati ng sub-volume maximum intensity projections of each carotid artery, rotating full-volume maximum inte nsity projections of both carotid arteries, sagittal and coronal sliding thin-slab reformations of ea ch carotid artery, and left oblique sliding thin-slab reformation through the aortic arch to include the origin of the arch branch vessels. FINDINGS: Aortic Arch : There is a three-vessel origin of the great vessels from the aorta. No evidence of o stial narrowing. Right Carotid : The common carotid artery is intact. The carotid bulb has a normal configuration wi thout ulceration or narrowing. The internal carotid artery lumen is smooth without stenosis. The in ternal carotid artery is tortuous. The external carotid artery is intact. Left Carotid : The common carotid artery is intact. The carotid bulb has a normal configuration wit hout ulceration or narrowing. The internal carotid artery lumen is smooth without stenosis. The int ernal carotid artery is tortuous. The external carotid artery is intact. Vertebrals : The vertebral arteries have a symmetric diameter. No stenotic lesions are seen. CONCLUSION: Tortuous internal carotid arteries without significant stenosis identified. Percent stenosis is calculated using the diameter of the stenotic region over the diameter of the nor mal distal internal carotid artery Electronically signed by: Po Ascencio MD 03/31/2018 10:14 PM SHERRYT
[2018-04-01] MEDS: Oral Hygiene Kit OROPHARYNG SCH ×5 (00:30→23:38)
[2018-04-01] MEDS: Sod Chloride 0.9% Inj 1,000 ML IV.CONT SCH ×3 (02:10→23:35)
[2018-04-01] MEDS: Morphine Sulfate Inj 2 MG/ML Vial IV.PUSH PRN (02:18)
[2018-04-01] MEDS: ACYCLOVIR IV.SIG SCH ×3 (03:34→23:35)
[2018-04-01] MEDS: SODIUM CHLOR 0.9% IV.SIG SCH ×3 (03:34→23:35)
[2018-04-01] MEDS: levETIRAcetam 1000mg/100mL Inj 100 ML IV.SIG SCH ×2 (03:34→17:07)
[2018-04-01] MEDS: Chlorhexidine Gluconate 2% 1 Pack (2 Cloths) TOPICAL SCH (03:35)
[2018-04-01 03:55] LABS: Albumin 3.1 g/dL (3.4-5.0); Anion Gap 17 meq/L (5-15); Aspartate Aminotransferase 94 U/L (15-37); Blood Urea Nitrogen 12 mg/dL (7-18); Calcium 8.1 mg/dL (8.5-10.1); Carbon Dioxide 21.7 meq/L (21.0-32.0); Chloride 99 meq/L (98-107); Glomerular Filtration Rate 45 mL/min (>89); Glucose,Random 61 mg/dL (74-106); Magnesium 1.8 mg/dL (1.5-2.5); Potassium 3.5 meq/L (3.5-5.1); Sodium 138 meq/L (136-145)
[2018-04-01 03:59] LABS: Alanine Aminotransferase 40 U/L (10-53); Alkaline Phosphatase 89 U/L (45-117); Baso # (Auto) 0.1 th/mm3 (0.0-0.2); Eos % (Auto) 0.1 % (0.0-4.0); Hematocrit 40.5 % (35.0-46.0); Hemoglobin 13.2 gm/dL (11.6-15.3); Lymph # (Auto) 1.8 th/mm3 (1.0-4.8); Mean Corpuscular HGB Conc 32.6 % (32.0-36.0); Mean Corpuscular Hemoglobin 29.2 pg (27.0-34.0); Mean Corpuscular Volume 89.6 fL (80.0-100.0); Mean Platelet Volume 7.9 fL (7.0-11.0); Mono # (Auto) 1.5 th/mm3 (0.0-0.9); Mono % (Auto) 12.3 % (0.0-8.0); Neut # (Auto) 8.7 th/mm3 (1.8-7.7); Neut % (Auto) 71.6 % (16.0-70.0); Phenytoin (Dilantin) 2.3 mcg/mL (10.0-20.0); Phosphorus 3.9 mg/dL (2.5-4.9); Platelet Count 161 th/mm3 (150-450); Red Blood Count 4.52 mil/mm3 (4.00-5.30); Red Cell Distribution Width 14.6 % (11.6-17.2); Total Protein 5.5 g/dL (6.4-8.2); White Blood Count 12.1 th/mm3 (4.0-11.0)
[2018-04-01] MEDS ORDERED: Chlorhexidine Gluconate 2% 1 Pack (2 Cloths) TOPICAL PRN (04:00)
[2018-04-01] MEDS ORDERED: Dextrose 50% in Water Syringe 50 ML ONE (06:18)
--- NOTE | 2018-04-01 06:53 | P.PNCC ---
Subjective Subjective Remarks/Hospital Course: Disheveled 78-year-old woman found down by EMS who state a large number of pills were next to her. Neighbors last saw her the night before. Required intubation and mechanical ventilation because of an inability to protect her airway. Left side is flaccid and her eyes are deviated to the left side, with intermittent horizontal nystagmus. CAT scan of the head without acute injury. The remainder of the traumagram is negative. I have met her on her arrival to the [facility]. 04/01: Fever to 102.5 last night. Will perform LP today. Broaden ABX coverage. On Keppra and Cerebyx now. Family has made DNR. Patient has been deteriorating for several years. CT of the head was normal and MRI last night did not provide any additional information. We will pursue aggressively an infectious etiology at this time. - Diagnosis (1) Encephalopathy acute (2) CVA (cerebral vascular accident) (3) Respiratory failure Objective Vital Signs / I&O: Vital Signs 03/31/18 09:00 03/31/18 09:11 03/31/18 10:00 Temperature 99.4 F Pulse Rate 126 H 126 H Respiratory Rate 15 15 Blood Pressure 126/82 Pulse Oximetry 100 100 03/31/18 12:00 03/31/18 12:56 03/31/18 15:42 Temperature 97.9 F Pulse Rate 102 H Respiratory Rate 15 17 25 H Blood Pressure 75/56 L Pulse Oximetry 96 100 92 L 03/31/18 16:00 03/31/18 18:00 03/31/18 20:00 Temperature 101.7 F H 102.5 F H Pulse Rate 118 H 102 H Respiratory Rate 20 21 Blood Pressure 173/82 H 161/63 H 127/71 Pulse Oximetry 96 98 03/31/18 20:50 03/31/18 22:29 04/01/18 00:00 Temperature 100.1 F H Pulse Rate 114 H Respiratory Rate 22 20 Blood Pressure 116/64 Pulse Oximetry 100 97 97 04/01/18 04:00 Temperature 100 F H Pulse Rate 108 H Respiratory Rate 20 Blood Pressure 85/53 L Pulse Oximetry 95 Intake & Output 03/31/18 03/31/18 04/01/18 06:59 18:59 06:59 Intake Total 1105 / 1105 1385 / 1385 Output Total 200 / 200 1450 / 1450 Balance 905 / 905 -65 / -65 Weight 65.1 kg 67.8 kg Intake: IV 1105 / 1105 1385 / 1385 NS Inj 1,000 ML @ 84 mls/hr IV. 1000 / 1000 CONT .[id number] K[facility]K Rx#:[id number] Zovirax Inj 650 MG In NS Inj 226 / 226 100 ML @ 113 mls/hr IV.SIG Q8H [facility] Rx#:[id number] Cerebyx Inj 200 MGPE In NS Inj 54 / 54 50 ML @ 216 mls/hr IV.SIG Q12HR [facility] Rx#:[id number] NS Inj 1,000 ML @ Wide Open IV. 1000 / 1000 SIG BOLUS [facility] Rx#:[id number] Keppra 1000 mg/100 mL Premix 105 / 105 105 / 105 100 ML @ 400 mls/hr IV.SIG Q12H [facility] Rx#:[id number] Output: Urine Amount (Catheter) 200 / 200 1450 / 1450 Female External 200 / 200 Indwelling Urethral Catheter 1450 / 1450 Result Diagrams: 04/01/18 03:10 04/01/18 03:10 Objective Remarks: Narrative: Physical exam: GENERAL: Disheveled 78-year-old woman, unresponsive, intubated. SKIN: Scattered chronic appearing ecchymosis on the both upper extremities. Same over left hip. HEAD: Atraumatic. Normocephalic. EYES: Pupils equal and round. No scleral icterus. No injection or drainage. Horizontal nystagmus has ceased. ENT: No nasal bleeding or discharge. Mucous membranes pink and moist. Oral tracheal intubation in place. NECK: Cervical collar in place. No obvious abnormalities. CARDIOVASCULAR: Regular rate and rhythm. Normal S1-S2. No murmur appreciated. No JVD. RESPIRATORY: Mechanically ventilated. Coarse breath sounds with few mobile secretions. Acceptable air entry bilaterally GASTROINTESTINAL: Mild abdominal distention, no guarding, bowel sounds few. MUSCULOSKELETAL: No obvious deformities. No edema. No obvious fractures. NEUROLOGICAL: Obtunded. Pupils 2 mm. Down deviation. Left arm and leg are flaccid. Withdraws to right arm noxious stimulation and right leg noxious stimulation. Breathes over ventilator rate. 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 meds down tube is acceptable Hematology -Serial hemoglobin determination ID -Culture for fevers -No evidence of infection at this time -Culture CSF Prophylaxis -Chemical DVT prophylaxis with heparin subcu -Pepcid for GI ulcer prophylaxis Lines -Peripherals -Discontinue interosseous left lower leg Overall impression: This woman is critically ill with a major new neurological deficit and remains ventilator dependent. By timeline this may be a simple stroke but we will pursue the avenues of potential drug overdose, infection and trauma as well. Critical care time 50 minutes aside from procedures.
[2018-04-01] MEDS ORDERED: Vancomycin Consult Pharmacy OTHER PRN (06:55)
[2018-04-01] MEDS ORDERED: Piperacil/Tazo 3.375 GM Premix 50 ML IV.SIG SCH (07:00)
--- NOTE | 2018-04-01 07:53 | P.PNNEU ---
Subjective Subjective Comments: No acute events Active Medications: Active Medications Acetaminophen (Tylenol) 650 mg PO Q6H PRN PRN Reason: PAIN 1-10 AND/OR FEVER >101F Last Admin: 03/31/18 23:03 Dose: 650 mg Al Hydroxide/Mg Hydroxide (Milk Of Candice Walsh) 30 ml PO Q12H PRN PRN Reason: Mild Constipation Albuterol (Duoneb Neb (Prn)) 1 ampul NEB Q2HR NEB PRN PRN Reason: WHEEZING Bisacodyl (Dulcolax Supp) 10 mg RECTAL DAILY PRN PRN Reason: SEVERE CONSITIPATION Chlorhexidine Gluconate (Peridex 0.12% Oral Kit) 15 ml OROPHARYNG BID@0800, 2000 [facility] Last Admin: 03/31/18 20:33 Dose: 15 ml Chlorhexidine Gluconate (Chlorhexidine 2% Cloth) 3 pack TOPICAL DAILY@0400 [facility] Stop: 04/06/18 03:59 Last Admin: 04/01/18 03:35 Dose: 3 pack Chlorhexidine Gluconate (Chlorhexidine 2% Cloth) 3 pack TOPICAL DAILY@0400 PRN PRN Reason: Extra cloth needed Stop: 04/06/18 03:59 Clonidine HCl (Catapres) 0.1 mg PO Q6H PRN PRN Reason: SBP > 180 Famotidine (Pepcid Pf Inj) 20 mg IV.PUSH Q12HR [facility] Last Admin: 03/31/18 20:32 Dose: 20 mg Heparin Sodium (Porcine) (Heparin Inj) 5,000 units SQ Q12H [facility] Last Admin: 03/31/18 23:03 Dose: 5,000 units Hydralazine HCl (Apresoline) 50 mg PO TID [facility] Last Admin: 03/31/18 17:28 Dose: 50 mg Sodium Chloride (Ns Inj) 1,000 mls @ 84 mls/hr IV.CONT .[id number] [facility] Last Admin: 04/01/18 02:10 Dose: 84 mls/hr Phenylephrine HCl 40 mg/ (Sodium Chloride) 500 mls @ 30 mls/hr IV.CONT TITRATE PRN; Protocol PRN Reason: See Protocol Last Titration: 04/01/18 06:30 Dose: 40 mcg/min, 30 mls/hr Levetiracetam (Keppra 1000 Mg/100 Ml Premix) 100 mls @ 400 mls/hr IV.SIG Q12H [facility] Last Infusion: 04/01/18 03:49 Dose: Infused Fosphenytoin Sodium 200 mgpe/ (Sodium Chloride) 54 mls @ 216 mls/hr IV.SIG Q12HR [facility] Last Infusion: 03/31/18 20:48 Dose: Infused Acyclovir Sodium 650 mg/ (Sodium Chloride) 113 mls @ 113 mls/hr IV.SIG Q8H [facility] Last Infusion: 04/01/18 04:34 Dose: Infused Ceftriaxone Sodium 2,000 mg/ (Sodium Chloride) 100 mls @ 200 mls/hr IV.SIG Q24H K[facility]K Lactulose (Lactulose Liq) 30 ml PO DAILY PRN PRN Reason: SEVERE CONSITIPATION Lorazepam (Ativan Inj) 1 mg IV.PUSH Q15M PRN PRN Reason: SEIZURES Metoprolol Tartrate (Lopressor) 25 mg PO TID [facility] Last Admin: 03/31/18 17:28 Dose: 25 mg Miscellaneous Medication () 1 each OROPHARYNG 0000,0400,1200,1600 [facility] Last Admin: 04/01/18 03:35 Dose: 1 each Morphine Sulfate (Morphine Inj) 2 mg IV.PUSH Q2H PRN PRN Reason: PAIN SCALE 6 TO 10 Last Admin: 04/01/18 02:18 Dose: 2 mg Pharmacy Profile Note (Vancomycin Consult Pharmacy) 1 each OTHER UNSCH PRN PRN Reason: Pharmacy to dose Senna/Docusate Sodium (Ce-Colace) 1 tab PO BID [facility] Last Admin: 03/31/18 20:32 Dose: 1 tab Sennosides (Senokot) 17.2 mg PO Q12H PRN PRN Reason: Moderate Constipation Sodium Chloride (Ns Flush) 2 ml IV.FLUSH BID [facility] Last Admin: 03/31/18 20:33 Dose: 2 ml Sodium Chloride (Ns Flush) 2 ml IV.FLUSH PRN PRN PRN Reason: FLUSH AFTER USING IV ACCESS Thiamine HCl (Thiamine Inj) 100 mg IM DAILY [facility] Allergies/Adverse Reactions: Allergies Allergy/AdvReac Type Severity Reaction Status Date / Time No Allergy Information Allergy Unverified 03/31/18 08:49 Available Review of Systems unobtainable due to endotracheal tube, unobtainable due to mental condition Physical Exam Vital signs: Vital Signs 03/31/18 09:00 10/09/18 09:11 03/31/18 10:00 Temperature 99.4 F Pulse Rate 126 H 126 H Respiratory Rate 15 15 Blood Pressure 126/82 Pulse Oximetry 100 100 03/31/18 12:00 03/31/18 12:56 03/31/18 15:42 Temperature 97.9 F Pulse Rate 102 H Respiratory Rate 15 17 25 H Blood Pressure 75/56 L Pulse Oximetry 96 100 92 L 03/31/18 16:00 03/31/18 18:00 03/31/18 20:00 Temperature 101.7 F H 102.5 F H Pulse Rate 118 H 102 H Respiratory Rate 20 21 Blood Pressure 173/82 H 161/63 H 127/71 Pulse Oximetry 96 98 03/31/18 20:50 03/31/18 22:29 04/01/18 00:00 Temperature 100.1 F H Pulse Rate 114 H Respiratory Rate 22 20 Blood Pressure 116/64 Pulse Oximetry 100 97 97 04/01/18 04:00 04/01/18 07:35 Temperature 100 F H Pulse Rate 108 H Respiratory Rate 20 20 Blood Pressure 85/53 L Pulse Oximetry 95 94 L Intake & Output 03/31/18 04/01/18 04/01/18 18:59 06:59 18:59 Intake Total 1105 / 1105 1410 / 1410 Output Total 200 / 200 1450 / 1450 Balance 905 / 905 -40 / -40 Weight 65.1 kg 67.8 kg Intake: IV 1105 / 1105 1410 / 1410 [id number] Syringe 50 ML @ 0 mls/hr . 25 / 25 ROUTE .STK-MED ONE Rx#:[id number] NS Inj 1,000 ML @ 84 mls/hr IV. 1000 / 1000 CONT .[id number] [facility] Rx#:[id number] Zovirax Inj 650 MG In NS Inj 226 / 226 100 ML @ 113 mls/hr IV.SIG Q8H [facility] Rx#:[id number] Cerebyx Inj 200 MGPE In NS Inj 54 / 54 50 ML @ 216 mls/hr IV.SIG Q12HR [facility] Rx#:[id number] NS Inj 1,000 ML @ Wide Open IV. 1000 / 1000 SIG BOLUS [facility] Rx#:[id number] Keppra 1000 mg/100 mL Premix 105 / 105 105 / 105 100 ML @ 400 mls/hr IV.SIG Q12H [facility] Rx#:[id number] Output: Urine Amount (Catheter) 200 / 200 1450 / 1450 Female External 200 / 200 Indwelling Urethral Catheter 1450 / 1450 Narrative: GENERAL: in NAD, SKIN: Warm and dry. HEAD: Atraumatic. Normocephalic. EYES: Pupils equal and round. No scleral icterus. ENT: No nasal bleeding or discharge. Mucous membranes pink and moist. NECK: Trachea midline. No JVD. CARDIOVASCULAR: Regular rate and rhythm. RESPIRATORY: Intubated no accessory muscle use. GASTROINTESTINAL: Abdomen soft, non-tender, nondistended. MUSCULOSKELETAL: Coma state nonresponsive not following nonverbal, OD approximately 4-1/2 mm not very reactive, OS approximately 2 mm minimally reactive, sluggish reactive pupils no significant gaze deviation, mild withdrawal in the left side to tactile stimuli slight grimace PSYCHIATRIC: Intubated - Constitutional no acute distress - Routine HEENT Exam Head: Present: normocephalic - Urinary Catheter Management Female External Cath placed during this visit: no Indwelling Urethral Catheter Cath placed during this visit: yes Reason for continuing: Acute urinary retention Insertion date: 04/01/18 Objective Laboratory Results - last 24 hr 03/31/18 03/31/18 03/31/18 08:55 08:55 08:55 WBC 14.8 H RBC 5.19 Hgb 15.2 POC Hgb (Calc) 15.6 H Hct 46.5 H POC Hct 46.0 MCV 89.6 MCH 29.4 MCHC 32.8 RDW 14.5 Plt Count 181 MPV 7.1 Prelim Diff (Auto) Manual diff required Neut % (Auto) Lymph % (Auto) [place] % (Auto) Eos % (Auto) Baso % (Auto) Neut # (Auto) Lymph # (Auto) [place] # (Auto) Eos # (Auto) Baso # (Auto) WBC Differential Manual diff final Seg Neuts % (Manual) 83 H Band Neuts % (Manual) 8 H Lymphocytes % (Manual) 4 L Monocytes % (Manual) 5 Abs Neuts (Manual) 13.5 H Differential Comment . Platelet Estimate Normal Platelet Morphology Normal Ovalocytes 1+ H [place] Cells 1+ H ESR PT 11.1 INR 1.1 APTT 22.4 L Puncture Site Patient Temperature O2 Saturation ABG pH ABG pCO2 ABG pO2 ABG HCO3 ABG O2 Content ABG Base Excess ABG Methemoglobin Bryce Test Hemoglobin Carboxyhemoglobin O2 Delivery Device Vent Setting Inspired O2 Critical Value POC Sodium 129 L Sodium POC Potassium 3.9 Potassium POC Chloride 92 L Chloride Carbon Dioxide Anion Gap POC BUN 5 BUN Creatinine POC Creatinine 0.7 Estimated GFR POC Glucose 106 Random Glucose Calcium Phosphorus Magnesium Total Bilirubin AST ALT Alkaline Phosphatase Ammonia Total Creatine Kinase CK-MB (CK-2) CK-MB (CK-2) % C-Reactive Protein Total Protein Albumin Vitamin B12 Folate TSH Free T4 Nasal Screen MRSA (PCR) Phenytoin Blood Type Antibody Screen 03/31/18 03/31/18 03/31/18 08:55 08:55 11:15 WBC RBC Hgb POC Hgb (Calc) Hct POC Hct MCV MCH MCHC RDW Plt Count MPV Prelim Diff (Auto) Neut % (Auto) Lymph % (Auto) [place] % (Auto) Eos % (Auto) Baso % (Auto) Neut # (Auto) Lymph # (Auto) [place] # (Auto) Eos # (Auto) Baso # (Auto) WBC Differential Seg Neuts % (Manual) Band Neuts % (Manual) Lymphocytes % (Manual) Monocytes % (Manual) Abs Neuts (Manual) Differential Comment Platelet Estimate Platelet Morphology Ovalocytes [place] Cells ESR PT INR APTT Puncture Site Right radial Patient Temperature 98.6 O2 Saturation 94 ABG pH 7.39 ABG pCO2 40 ABG pO2 86 ABG HCO3 24 ABG O2 Content 20.0 ABG Base Excess -0.7 ABG Methemoglobin 1.0 Bryce Test Present Hemoglobin 15.1 Carboxyhemoglobin 1.2 O2 Delivery Device Ventilator Vent Setting Prvc/ac Inspired O2 100 Critical Value No POC Sodium Sodium POC Potassium Potassium POC Chloride Chloride Carbon Dioxide Anion Gap POC BUN BUN Creatinine POC Creatinine Estimated GFR POC Glucose Random Glucose Calcium Phosphorus Magnesium Total Bilirubin AST ALT Alkaline Phosphatase Ammonia Total Creatine Kinase 1368 H CK-MB (CK-2) 18.5 H CK-MB (CK-2) % 1.4 C-Reactive Protein Total Protein Albumin Vitamin B12 Folate TSH Free T4 Nasal Screen MRSA (PCR) Phenytoin Blood Type A Positive Antibody Screen Negative 03/31/18 03/31/18 03/31/18 18:00 20:31 20:31 WBC RBC Hgb POC Hgb (Calc) Hct POC Hct MCV MCH MCHC RDW Plt Count MPV Prelim Diff (Auto) Neut % (Auto) Lymph % (Auto) [place] % (Auto) Eos % (Auto) Baso % (Auto) Neut # (Auto) Lymph # (Auto) [place] # (Auto) Eos # (Auto) Baso # (Auto) WBC Differential Seg Neuts % (Manual) Band Neuts % (Manual) Lymphocytes % (Manual) Monocytes % (Manual) Abs Neuts (Manual) Differential Comment Platelet Estimate Platelet Morphology Ovalocytes [place] Cells ESR PT INR APTT Puncture Site Patient Temperature O2 Saturation ABG pH ABG pCO2 ABG pO2 ABG HCO3 ABG O2 Content ABG Base Excess ABG Methemoglobin Bryce Test Hemoglobin Carboxyhemoglobin O2 Delivery Device Vent Setting Inspired O2 Critical Value POC Sodium Sodium POC Potassium Potassium POC Chloride Chloride Carbon Dioxide Anion Gap POC BUN BUN Creatinine POC Creatinine Estimated GFR POC Glucose Random Glucose Calcium Phosphorus Magnesium Total Bilirubin AST ALT Alkaline Phosphatase Ammonia 18 Total Creatine Kinase CK-MB (CK-2) CK-MB (CK-2) % C-Reactive Protein 11.00 H Total Protein Albumin Vitamin B12 1197 H Folate Greater than 20.0 H TSH 7.100 H Free T4 1.08 Nasal Screen MRSA (PCR) Not detected Phenytoin Blood Type Antibody Screen 04/01/18 04/01/18 04/01/18 03:10 03:10 03:10 WBC 12.1 H RBC 4.52 Hgb 13.2 D POC Hgb (Calc) Hct 40.5 POC Hct MCV 89.6 MCH 29.2 MCHC 32.6 RDW 14.6 Plt Count 161 MPV 7.9 Prelim Diff (Auto) Neut % (Auto) 71.6 H Lymph % (Auto) 15.0 [place] % (Auto) 12.3 H Eos % (Auto) 0.1 Baso % (Auto) 1.0 Neut # (Auto) 8.7 H Lymph # (Auto) 1.8 [place] # (Auto) 1.5 H Eos # (Auto) 0.0 Baso # (Auto) 0.1 WBC Differential . Seg Neuts % (Manual) Band Neuts % (Manual) Lymphocytes % (Manual) Monocytes % (Manual) Abs Neuts (Manual) Differential Comment Auto diff final Platelet Estimate Platelet Morphology Ovalocytes [place] Cells ESR 4 PT INR APTT Puncture Site Patient Temperature O2 Saturation ABG pH ABG pCO2 ABG pO2 ABG HCO3 ABG O2 Content ABG Base Excess ABG Methemoglobin Bryce Test Hemoglobin Carboxyhemoglobin O2 Delivery Device Vent Setting Inspired O2 Critical Value POC Sodium Sodium 138 POC Potassium Potassium 3.5 POC Chloride Chloride 99 Carbon Dioxide 21.7 Anion Gap 17 H POC BUN BUN 12 Creatinine 1.17 H POC Creatinine Estimated GFR 45 L POC Glucose Random Glucose 61 L Calcium 8.1 L Phosphorus 3.9 Magnesium 1.8 Total Bilirubin 0.9 AST 94 H ALT 40 Alkaline Phosphatase 89 Ammonia Total Creatine Kinase CK-MB (CK-2) CK-MB (CK-2) % C-Reactive Protein Total Protein 5.5 L Albumin 3.1 L Vitamin B12 Folate TSH Free T4 Nasal Screen MRSA (PCR) Phenytoin 2.3 L Blood Type Antibody Screen 04/01/18 06:33 WBC RBC Hgb POC Hgb (Calc) Hct POC Hct MCV MCH MCHC RDW Plt Count MPV Prelim Diff (Auto) Neut % (Auto) Lymph % (Auto) [place] % (Auto) Eos % (Auto) Baso % (Auto) Neut # (Auto) Lymph # (Auto) [place] # (Auto) Eos # (Auto) Baso # (Auto) WBC Differential Seg Neuts % (Manual) Band Neuts % (Manual) Lymphocytes % (Manual) Monocytes % (Manual) Abs Neuts (Manual) Differential Comment Platelet Estimate Platelet Morphology Ovalocytes [place] Cells ESR PT INR APTT Puncture Site Patient Temperature O2 Saturation ABG pH ABG pCO2 ABG pO2 ABG HCO3 ABG O2 Content ABG Base Excess ABG Methemoglobin Bryce Test Hemoglobin Carboxyhemoglobin O2 Delivery Device Vent Setting Inspired O2 Critical Value POC Sodium Sodium POC Potassium Potassium POC Chloride Chloride Carbon Dioxide Anion Gap POC BUN BUN Creatinine POC Creatinine Estimated GFR POC Glucose 147 H Random Glucose Calcium Phosphorus Magnesium Total Bilirubin AST ALT Alkaline Phosphatase Ammonia Total Creatine Kinase CK-MB (CK-2) CK-MB (CK-2) % C-Reactive Protein Total Protein Albumin Vitamin B12 Folate TSH Free T4 Nasal Screen MRSA (PCR) Phenytoin Blood Type Antibody Screen Review/Management - Diagnosis (1) Encephalopathy acute Code(s): G93.40 - Encephalopathy, unspecified Status: Acute Current Visit: Yes (2) Seizure Code(s): R56.9 - Unspecified convulsions Status: Acute Current Visit: Yes (3) Respiratory failure Code(s): J96.90 - Respiratory failure, unspecified, unspecified whether with hypoxia or hypercapnia Status: Acute Current Visit: Yes - Review/Management Plan: Etiology for encephalopathy; toxic metabolic versus cerebral ischemia versus toxic ingestion/EtOH withdrawal MRI brain scan images reviewed. 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 Findings may be suggestive of PRES. posterior reversible leukoencephalopathy syndrome or reversible vasoconstriction syndrome. However no clear documentation of severe hypertension; this can also be caused by chemotherapeutic agents No clear documentation of any cardiac arrest or hypoxia although possibility however as there is no diffusion restriction on MRI scan I suspect hypoxia is less likely and her prognosis should be more favorable Recommendation Follow-up CSF studies Maintain adequate map Follow exam
--- NOTE | 2018-04-01 08:50 | P.PCN ---
Procedure: Diagnosis: Acute encephalopathy, fever Procedure: Diagnostic lumbar puncture Narrative: Time out performed and patient properly identified. Patient on mechanical ventilation with orotracheal intubation. Usual ICU monitoring devices in place. Patient turned in the left lateral decubitus position. The lumbar region of the skin was prepped and draped sterilely. A spinal needle was introduced through the L4-5 vertebral body interspace through the midline of the back. The iliac crest was used as a landmark. Clear fluid returned with an opening pressure of 22 cm of water. 4 individual test tubes were used to collect a total of 10 mL's of CSF. The spinal needle was then withdrawn and a Band-Aid applied to the site. The patient was turned in the supine position on mechanical ventilation. Studies were labeled, initialed, and packaged to document chain of custody. 3 tubes sent to the lab for individual studies. A fourth tube sent for any possible additional studies needed.
--- NOTE | 2018-04-01 08:51 | P.PNCC ---
Subjective Subjective Remarks/Hospital Course: Disheveled 78-year-old woman found down by EMS who state a large number of pills were next to her. Neighbors last saw her the night before. Required intubation and mechanical ventilation because of an inability to protect her airway. Left side is flaccid and her eyes are deviated to the left side, with intermittent horizontal nystagmus. CAT scan of the head without acute injury. The remainder of the traumagram is negative. I have met her on her arrival to the [facility]. 04/01: Fever to 102.5 last night. Lumbar puncture performed earlier this morning and fluid sent for studies. Broaden ABX coverage. On Keppra and Cerebyx now. Family has made DNR. Patient has been deteriorating for several years. CT of the head was normal and MRI last night did not provide any additional information. We will pursue aggressively an infectious etiology at this time. - Diagnosis (1) Encephalopathy acute (2) CVA (cerebral vascular accident) (3) Respiratory failure Objective Vital Signs / I&O: Vital Signs 03/31/18 09:00 03/31/18 09:11 03/31/18 10:00 Temperature 99.4 F Pulse Rate 126 H 126 H Respiratory Rate 15 15 Blood Pressure 126/82 Pulse Oximetry 100 100 03/31/18 12:00 03/31/18 12:56 03/31/18 15:42 Temperature 97.9 F Pulse Rate 102 H Respiratory Rate 15 17 25 H Blood Pressure 75/56 L Pulse Oximetry 96 100 92 L 03/31/18 16:00 03/31/18 18:00 03/31/18 20:00 Temperature 101.7 F H 102.5 F H Pulse Rate 118 H 102 H Respiratory Rate 20 21 Blood Pressure 173/82 H 161/63 H 127/71 Pulse Oximetry 96 98 03/31/18 20:50 03/31/18 22:29 04/01/18 00:00 Temperature 100.1 F H Pulse Rate 114 H Respiratory Rate 22 20 Blood Pressure 116/64 Pulse Oximetry 100 97 97 04/01/18 04:00 04/01/18 07:35 Temperature 100 F H Pulse Rate 108 H Respiratory Rate 20 20 Blood Pressure 85/53 L Pulse Oximetry 95 94 L Intake & Output 03/31/18 04/01/18 04/01/18 18:59 06:59 18:59 Intake Total 1105 / 1105 1410 / 1410 Output Total 200 / 200 1450 / 1450 Balance 905 / 905 -40 / -40 Weight 65.1 kg 67.8 kg Intake: IV 1105 / 1105 1410 / 1410 D50W Syringe 50 ML @ 0 mls/hr . 25 / 25 ROUTE .STK-MED ONE Rx#:[id number] NS Inj 1,000 ML @ 84 mls/hr IV. 1000 / 1000 CONT .[id number] KIRK Rx#:[id number] Zovirax Inj 650 MG In NS Inj 226 / 226 100 ML @ 113 mls/hr IV.SIG Q8H KIRK Rx#:[id number] Cerebyx Inj 200 MGPE In NS Inj 54 / 54 50 ML @ 216 mls/hr IV.SIG Q12HR KIRK Rx#:[id number] NS Inj 1,000 ML @ Wide Open IV. 1000 / 1000 SIG BOLUS KIRK Rx#:[id number] Keppra 1000 mg/100 mL Premix 105 / 105 105 / 105 100 ML @ 400 mls/hr IV.SIG Q12H KIRK Rx#:[id number] Output: Urine Amount (Catheter) 200 / 200 1450 / 1450 Female External 200 / 200 Indwelling Urethral Catheter 1450 / 1450 Result Diagrams: 04/01/18 03:10 04/01/18 03:10 Objective Remarks: Narrative: Physical exam: GENERAL: Disheveled 78-year-old woman, unresponsive, intubated. SKIN: Scattered chronic appearing ecchymosis on the both upper extremities. Same over left hip. HEAD: Atraumatic. Normocephalic. EYES: Pupils equal and round. No scleral icterus. No injection or drainage. Horizontal nystagmus has ceased. ENT: No nasal bleeding or discharge. Mucous membranes pink and moist. Oral tracheal intubation in place. NECK: Cervical collar in place. No obvious abnormalities. CARDIOVASCULAR: Regular rate and rhythm. Normal S1-S2. No murmur appreciated. No JVD. RESPIRATORY: Mechanically ventilated. Coarse breath sounds with few mobile secretions. Acceptable air entry bilaterally GASTROINTESTINAL: Mild abdominal distention, no guarding, bowel sounds few. MUSCULOSKELETAL: No obvious deformities. No edema. No obvious fractures. NEUROLOGICAL: Obtunded. Pupils 2 mm. Down deviation. Left arm and leg are flaccid. Withdraws to right arm noxious stimulation and right leg noxious stimulation. Breathes over ventilator rate. 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 meds down tube is acceptable Hematology -Serial hemoglobin determination ID -Culture for fevers -No evidence of infection at this time -Culture CSF Prophylaxis -Chemical DVT prophylaxis with heparin subcu -Pepcid for GI ulcer prophylaxis Lines -Peripherals -Discontinue interosseous left lower leg Overall impression: This woman is critically ill with a major new neurological deficit and remains ventilator dependent. By timeline this may be a simple stroke but we will pursue the avenues of potential drug overdose, infection and trauma as well. Critical care time 50 minutes aside from procedures.
[2018-04-01] MEDS: Metoprolol Tartrate 25 MG Tablet PO SCH ×3 (09:33→17:08)
[2018-04-01] MEDS: Chlorhexidine 0.12% Oral Kit 15 ML UDC OROPHARYNG SCH ×2 (09:33→21:04)
[2018-04-01] MEDS: hydrALAZINE 50 MG Tablet PO SCH ×3 (09:33→17:07)
[2018-04-01] MEDS: Fosphenytoin Inj 200 MGPE in Sodium Chlor 0.9% Inj 50 ML IV.SIG SCH ×2 (10:01→21:07)
[2018-04-01] MEDS: Famotidine PF Inj 20 MG/2 ML Vial IV.PUSH SCH ×2 (10:04→21:01)
[2018-04-01] MEDS: Senna/Docusate Sodium 8.6/50 MG Tablet PO SCH ×2 (10:04→21:02)
[2018-04-01] MEDS: Vancomycin Inj 1,250 MG in Sodium Chlor 0.9% Inj 250 ML IV.SIG SCH (10:31)
[2018-04-01 10:51] LABS: Lymphocytes, CSF 3 %; Monocytes,CSF 1 %; Neutrophils,CSF 94 %
[2018-04-01 10:56] LABS: RBC on Tube 4 32 /mm3
--- NOTE | 2018-04-01 11:03 | P.PCN ---
Procedure: Diagnosis: Encephalopathy, poor venous access Procedure: Insertion right subclavian vein triple-lumen central venous catheter Narrative: Timeout performed and patient suitably identified. Right chest was prepped and draped. 1% Xylocaine infiltration anesthetic was used in the soft tissue underneath the clavicle. Using a thin-walled needle the subclavian vein was cannulated underneath the clavicle on the right side and a wire delivered to the central circulation. A dilator was passed and the catheter was delivered over the wire to a distance of 18 cm. All 3 lm were aspirated and flushed. A StatLock device was used to secure the catheter to the skin. A sterile dressing was applied over the catheter. Chest x-ray was ordered will review.
[2018-04-01] MEDS: Heparin - SQ 10,000 UNITS/ML Vial SQ SCH ×2 (11:33→23:59)
[2018-04-01] MEDS: Acetaminophen 325 MG Tablet PO PRN (11:38)
--- NOTE | 2018-04-01 12:08 | XR ---
EXAM DATE: 04/01/2018 12:00 AM EDT AGE/SEX: 78 years / Female INDICATIONS: Central line placement. CLINICAL DATA: This is the patient's subsequent encounter. Patient reports that signs and symptoms h ave been present for 4 - 6 days and indicates a pain score of Nonresponsive. MEDICAL/SURGICAL HISTORY: Non-responsive. Non-responsive. COMPARISON: [facility] [place], CHEST 1V SINGLE AP, 03/31/2018. . FINDINGS: A single AP view of the chest demonstrates interval placement of a right subclavian central line. Tip is at the cavoatrial junction. No pneumothorax. Endotracheal tube observed. The tip is partially obs cured but felt to be approximately 3 cm from the kamla. Nasogastric tube courses off the inferior ma rgin of the film. Lungs are clear. No effusions. Heart is normal size. CONCLUSION: Central line in good position without pneumothorax. Clear lungs. Electronically signed by: Tk Cardozo MD 04/01/2018 12:07 PM EDT
[2018-04-01 12:50] LABS: RBC on Tube 1 ND /mm3
--- NOTE | 2018-04-01 18:50 | ECHRPT ---
Indication: CVA / TIA CONCLUSIONS The left ventricular systolic function is normal with an estimated ejection fraction in the range of 60-65%. Trace mitral valve regurgitation. There is mild tricuspid regurgitation. There is estimated ctqbcjmv-ua-fqxtcj pulmonary hypertension present (range 60-70 mmHg). BP: / HR: Rhythm: MEASUREMENTS (Male / Female) Normal Values Technical Quality:Technically difficult study 2D ECHO LV Diastolic Diameter PLAX 4.0 cm 4.2 - 5.9 / 3.9 - 5.3 cm LV Systolic Diameter PLAX 2.2 cm IVS Diastolic Thickness 1.0 cm 0.6 - 1.0 / 0.6 - 0.9 cm LVPW Diastolic Thickness 0.9 cm 0.6 - 1.0 / 0.6 - 0.9 cm LV Relative Wall Thickness 0.5 RV Internal Dim ED PLAX 3.5 cm LVOT Diameter 1.8 cm Aortic Root Diameter 2.5 cm LA Systolic Diameter LX 3.1 cm 3.0 - 4.0 / 2.7 - 3.8 cm DOPPLER Mitral E Point Velocity 62.7 cm/s Mitral A Point Velocity 80.0 cm/s Mitral E to A Ratio 0.8 LV E' Lateral Velocity 7.8 cm/s Mitral E to LV E' Lateral Ratio 8.0 LV E' Septal Velocity 5.6 cm/s Mitral E to LV E' Septal Ratio 11.3 TR Peak Velocity 344.0 cm/s TR Peak Gradient 47.3 mmHg Right Atrial Pressure 15.0 mmHg Pulmonary Artery Systolic Pressu 62.3 mmHg Right Ventricular Systolic Press 62.3 mmHg PV Peak Velocity 129.0 cm/s PV Peak Gradient 6.7 mmHg FINDINGS LEFT VENTRICLE Normal left ventricular size and wall thickness. The left ventricular systolic function is normal wi th an estimated ejection fraction in the range of 60-65%. Left ventricular diastolic function parameters a re normal. RIGHT VENTRICLE Normal right ventricular size and systolic function. LEFT ATRIUM The left atrial size is normal. RIGHT ATRIUM The right atrium is not well visualized. ATRIAL SEPTUM Normal atrial septal thickness AORTA The aortic root and proximal ascending aorta are normal in size on limited imaging. MITRAL VALVE Structurally normal mitral valve. Trace mitral valve regurgitation. No mitral valve stenosis. AORTIC VALVE Trileaflet aortic valve. No aortic valve regurgitation. No aortic valve stenosis. TRICUSPID VALVE There is mild tricuspid regurgitation. The estimated pulmonary arterial pressure is 62 mmHg. There is estimated yqgqvzhx-fy-trejrm pulmonary hypertension present (range 60-70 mmHg). PULMONARY VALVE No pulmonary valve regurgitation or stenosis. VESSELS The inferior vena cava is normal in size. PERICARDIUM No pericardial effusion. Steve Perez DO (Electronically Signed) Final Date:01 April 2018 18:49
--- NOTE | 2018-04-01 19:28 | ECG ---
Date Performed: 03/31/2018 Time Performed: 08:55:34 PTAGE: 78 years EKG: SINUS TACHYCARDIA POSSIBLE RIGHT ATRIAL ENLARGEMENT POSSIBLE LEFT ATRIAL ENLARGEMENT MARKED RIGHT AXIS DEVIATION POSSIBLE RIGHT VENTRICULAR CONDUCTION DELAY INFERIOR MYOCARDIAL INFARCTION ABNO RMAL ECG NO PREVIOUS TRACING DOCTOR: Lisandro Serna Interpretating Date/Time 04/01/2018 19:26:15
[2018-04-02] MEDS: levETIRAcetam 1000mg/100mL Inj 100 ML IV.SIG SCH ×2 (03:29→16:26)
[2018-04-02] MEDS: Chlorhexidine Gluconate 2% 1 Pack (2 Cloths) TOPICAL SCH (05:04)
[2018-04-02] MEDS: Oral Hygiene Kit OROPHARYNG SCH ×3 (05:04→16:26)
[2018-04-02 06:01] LABS: Baso % (Auto) 0.4 % (0.0-2.0); Eos % (Auto) 0.1 % (0.0-4.0); Hematocrit 31.6 % (35.0-46.0); Hemoglobin 10.7 gm/dL (11.6-15.3); Lymph # (Auto) 0.6 th/mm3 (1.0-4.8); Lymph % (Auto) 5.7 % (9.0-44.0); Mean Corpuscular Volume 88.2 fL (80.0-100.0); Mean Platelet Volume 7.2 fL (7.0-11.0); Mono # (Auto) 0.9 th/mm3 (0.0-0.9); Mono % (Auto) 8.4 % (0.0-8.0); Neut # (Auto) 9.5 th/mm3 (1.8-7.7); Neut % (Auto) 85.4 % (16.0-70.0); Platelet Count 128 th/mm3 (150-450); Red Blood Count 3.58 mil/mm3 (4.00-5.30); Red Cell Distribution Width 14.7 % (11.6-17.2); White Blood Count 11.1 th/mm3 (4.0-11.0)
[2018-04-02 06:33] LABS: Alanine Aminotransferase 40 U/L (10-53); Albumin 2.5 g/dL (3.4-5.0); Anion Gap 12 meq/L (5-15); Aspartate Aminotransferase 88 U/L (15-37); Blood Urea Nitrogen 22 mg/dL (7-18); Calcium 7.9 mg/dL (8.5-10.1); Carbon Dioxide 20.7 meq/L (21.0-32.0); Chloride 106 meq/L (98-107); Glomerular Filtration Rate 38 mL/min (>89); Glucose,Random 86 mg/dL (74-106); Potassium 3.4 meq/L (3.5-5.1); Sodium 139 meq/L (136-145)
[2018-04-02 06:35] LABS: Alkaline Phosphatase 75 U/L (45-117); Total Protein 5.1 g/dL (6.4-8.2)
[2018-04-02] MEDS ORDERED: Potassium Phosphate 500 MG Soluble Tablet PO PRN ×2 (08:32)
[2018-04-02] MEDS ORDERED: Magnesium Sulfate Inj 4 GM in Sodium Chlor 0.9% Inj 92 ML IV.SIG PRN (08:32)
[2018-04-02] MEDS ORDERED: Potassium Chlor 20 mEq Premix 20 MEQ/100 ML PIGGYBACK IV.SIG PRN ×2 (08:32)
[2018-04-02] MEDS ORDERED: Magnesium Oxide 400 MG Tablet PO PRN (08:32)
[2018-04-02] MEDS ORDERED: Dextrose 50% in Water 50 ML Vial IV.PUSH PRN (08:32)
[2018-04-02] MEDS ORDERED: Sodium Phosphate Inj 30 MMOL in Sodium Chlor 0.9% Inj 250 ML IV.SIG PRN (08:32)
[2018-04-02] MEDS ORDERED: Potassium Chlor 40 mEq Premix 40 MEQ/100 ML PIGGYBACK IV.SIG PRN ×2 (08:32)
[2018-04-02] MEDS ORDERED: Potassium Phosphate Inj 30 MMOL in Sodium Chlor 0.9% Inj 250 ML IV.SIG PRN (08:32)
[2018-04-02] MEDS ORDERED: Magnesium Sulfate Inj 2 GM in Sodium Chlor 0.9% Inj 96 ML IV.SIG PRN (08:32)
[2018-04-02] MEDS ORDERED: Potassium Chloride 25 MEQ Effervescent Tablet PO PRN (08:32)
--- NOTE | 2018-04-02 08:44 | P.PNCC ---
Subjective Subjective Remarks/Hospital Course: Disheveled 78-year-old woman found down by EMS who state a large number of pills were next to her. Neighbors last saw her the night before. Required intubation and mechanical ventilation because of an inability to protect her airway. Left side is flaccid and her eyes are deviated to the left side, with intermittent horizontal nystagmus. CAT scan of the head without acute injury. The remainder of the traumagram is negative. I have met her on her arrival to the [facility]. 04/01: Fever to 102.5 last night. Lumbar puncture performed earlier this morning and fluid sent for studies. Broaden ABX coverage. On Keppra and Cerebyx now. Family has made DNR. Patient has been deteriorating for several years. CT of the head was normal and MRI last night did not provide any additional information. We will pursue aggressively an infectious etiology at this time. Subjective 04/02: T-max 103.1. Currently 99.0. Lumbar puncture form as below. See documentation. Continues on acyclovir, ceftriaxone and vancomycin. Tube feeds will be initiated today. Currently off all sedation and moving non- purposefully in the bed Objective Vital Signs / I&O: Vital Signs 04/01/18 08:45 04/01/18 08:48 04/01/18 08:54 Temperature Pulse Rate 97 H 94 H 93 H Respiratory Rate 18 19 27 H Blood Pressure 81/51 L 93/54 L Pulse Oximetry 04/01/18 09:00 04/01/18 09:03 04/01/18 09:15 Temperature Pulse Rate 94 H 92 H 88 Respiratory Rate 34 H 28 H 34 H Blood Pressure 99/54 L Pulse Oximetry 77 L 88 L 100 04/01/18 09:18 04/01/18 09:30 04/01/18 09:33 Temperature Pulse Rate 90 92 H 94 H Respiratory Rate 36 H 23 41 H Blood Pressure 144/63 H 172/80 H Pulse Oximetry 100 95 79 L 04/01/18 09:44 04/01/18 09:45 04/01/18 09:48 Temperature Pulse Rate 94 H 95 H 93 H Respiratory Rate 35 H 29 H 32 H Blood Pressure 103/70 109/73 Pulse Oximetry 98 96 97 04/01/18 10:00 04/01/18 10:03 04/01/18 10:15 Temperature Pulse Rate 85 93 H 91 H Respiratory Rate 30 H 36 H 20 Blood Pressure 112/69 Pulse Oximetry 95 97 84 L 04/01/18 10:18 04/01/18 10:30 04/01/18 10:33 Temperature Pulse Rate 89 91 H 89 Respiratory Rate 17 34 H 21 Blood Pressure 94/55 L 99/52 L Pulse Oximetry 86 L 100 91 L 04/01/18 10:45 04/01/18 10:48 04/01/18 11:00 Temperature Pulse Rate 90 93 H 93 H Respiratory Rate 18 24 27 H Blood Pressure 132/61 Pulse Oximetry 100 100 99 04/01/18 11:03 04/01/18 11:15 04/01/18 11:18 Temperature Pulse Rate 92 H 93 H 90 Respiratory Rate 18 19 24 Blood Pressure 129/59 L 107/53 L Pulse Oximetry 100 100 99 04/01/18 11:30 04/01/18 11:33 04/01/18 11:41 Temperature Pulse Rate 83 81 79 Respiratory Rate 16 16 27 H Blood Pressure 72/45 L 92/54 L Pulse Oximetry 100 100 100 04/01/18 11:45 04/01/18 11:48 04/01/18 11:49 Temperature Pulse Rate 82 81 Respiratory Rate 27 H 32 H 17 Blood Pressure 108/55 L Pulse Oximetry 100 100 100 04/01/18 12:00 04/01/18 12:03 04/01/18 12:12 Temperature 103.1 F H 103.1 F H Pulse Rate 81 94 H Respiratory Rate 35 H 29 H Blood Pressure 115/60 Pulse Oximetry 99 100 04/01/18 12:15 04/01/18 12:18 04/01/18 12:30 Temperature Pulse Rate 86 85 85 Respiratory Rate 18 19 16 Blood Pressure 103/58 L Pulse Oximetry 100 100 100 04/01/18 12:33 04/01/18 12:45 04/01/18 12:48 Temperature Pulse Rate 84 86 86 Respiratory Rate 18 24 22 Blood Pressure 104/59 L 113/64 Pulse Oximetry 100 100 100 04/01/18 13:00 04/01/18 13:03 04/01/18 13:15 Temperature Pulse Rate 83 85 88 Respiratory Rate 18 19 24 Blood Pressure 116/65 Pulse Oximetry 100 100 100 04/01/18 13:18 04/01/18 13:30 04/01/18 13:33 Temperature Pulse Rate 91 H 93 H 98 H Respiratory Rate 21 24 35 H Blood Pressure 117/65 127/62 Pulse Oximetry 100 100 100 04/01/18 13:45 04/01/18 13:48 04/01/18 14:00 Temperature Pulse Rate 97 H 97 H 101 H Respiratory Rate 25 H 30 H 16 Blood Pressure 109/52 L Pulse Oximetry 100 100 91 L 04/01/18 14:03 04/01/18 14:15 04/01/18 14:18 Temperature Pulse Rate 101 H 99 H 97 H Respiratory Rate 22 16 16 Blood Pressure 105/54 L 85/49 L Pulse Oximetry 91 L 93 L 85 L 04/01/18 14:30 04/01/18 14:33 04/01/18 14:45 Temperature Pulse Rate 95 H 96 H 92 H Respiratory Rate 16 19 19 Blood Pressure 97/53 L Pulse Oximetry 97 100 100 04/01/18 14:48 04/01/18 15:00 04/01/18 15:03 Temperature Pulse Rate 90 104 H 101 H Respiratory Rate 19 28 H 25 H Blood Pressure 103/55 L 112/62 Pulse Oximetry 100 99 100 04/01/18 15:15 04/01/18 15:18 04/01/18 15:30 Temperature Pulse Rate 105 H 106 H 100 H Respiratory Rate 36 H 37 H 24 Blood Pressure 125/66 Pulse Oximetry 100 100 100 04/01/18 15:33 04/01/18 15:37 04/01/18 15:45 Temperature Pulse Rate 99 H 103 H Respiratory Rate 30 H 19 32 H Blood Pressure 105/55 L Pulse Oximetry 100 100 100 04/01/18 15:48 04/01/18 16:00 04/01/18 16:03 Temperature 100.1 F H Pulse Rate 105 H 111 H 105 H Respiratory Rate 35 H 38 H 28 H Blood Pressure 117/55 L 117/58 L Pulse Oximetry 100 100 100 04/01/18 16:15 04/01/18 16:18 04/01/18 16:30 Temperature Pulse Rate 105 H 103 H 100 H Respiratory Rate 35 H 16 19 Blood Pressure 123/57 L Pulse Oximetry 100 100 100 04/01/18 16:33 04/01/18 16:45 04/01/18 16:48 Temperature Pulse Rate 98 H 92 H 88 Respiratory Rate 28 H 16 16 Blood Pressure 114/59 L 97/52 L Pulse Oximetry 100 100 100 04/01/18 20:00 04/01/18 20:31 04/01/18 22:00 Temperature 99.8 F H Pulse Rate 76 76 Respiratory Rate 14 16 Blood Pressure 97/52 L Pulse Oximetry 100 100 04/01/18 23:20 04/02/18 00:00 04/02/18 02:00 Temperature 99.1 F Pulse Rate 69 69 Respiratory Rate 16 15 Blood Pressure 115/55 L Pulse Oximetry 100 100 04/02/18 03:53 04/02/18 04:00 04/02/18 06:00 Temperature 99.0 F Pulse Rate 71 71 Respiratory Rate 17 Blood Pressure 116/58 L Pulse Oximetry 100 98 Intake & Output 04/01/18 04/02/18 04/02/18 18:59 06:59 18:59 Intake Total 1129.5 / 1129.5 1267 / 1267 Output Total 230 / 230 450 / 450 Balance 899.5 / 899.5 817 / 817 Weight 71 kg Intake: IV 1129.5 / 1129.5 1267 / 1267 NS Inj 1,000 ML @ 84 mls/hr IV. 500 / 500 1000 / 1000 CONT .[id number] K[facility]K Rx#:[id number] Zovirax Inj 650 MG In NS Inj 113 / 113 113 / 113 100 ML @ 113 mls/hr IV.SIG Q12H KIRK Rx#:[id number] Cerebyx Inj 200 MGPE In NS Inj 54 / 54 54 / 54 50 ML @ 216 mls/hr IV.SIG Q12HR KIRK Rx#:[id number] Vancomycin Inj 1,250 MG In NS 262.5 / 262.5 Inj 250 ML @ 250 mls/hr IV.SIG Q24H KIRK Rx#:[id number] Rocephin Inj 2,000 MG In NS Inj 100 / 100 100 ML @ 200 mls/hr IV.SIG Q24H KIRK Rx#:[id number] Keppra 1000 mg/100 mL Premix 100 / 100 100 / 100 100 ML @ 400 mls/hr IV.SIG Q12H KIRK Rx#:[id number] Output: Urine Amount (Catheter) 230 / 230 450 / 450 Indwelling Urethral Catheter 230 / 230 450 / 450 Other: Date of Last Bowel Movement 04/01/18 04/01/18 Result Diagrams: 04/02/18 05:35 04/02/18 05:35 Other Results: Microbiology 04/01/18 08:45 Lumbar Puncture Gram Stain - Final Imaging: Microbiology 04/01/18 08:45 Lumbar Puncture Gram Stain - Final Objective Remarks: GENERAL: Disheveled 78-year-old woman, intubated. SKIN: Scattered chronic appearing ecchymosis on the both upper extremities along with left hip. HEAD: Atraumatic. Normocephalic. EYES: Pupils equal and round. No scleral icterus. No injection or drainage. ENT: No nasal bleeding or discharge. Mucous membranes pink and moist. Oral tracheal intubation in place. NECK: Cervical collar in place. No obvious abnormalities. CARDIOVASCULAR: Regular rate and rhythm. Normal S1-S2. No murmur appreciated. No JVD. RESPIRATORY: Mechanically ventilated. Coarse breath sounds with few mobile secretions. GASTROINTESTINAL: Mild abdominal distention, no guarding, bowel sounds are hypoactive MUSCULOSKELETAL: No obvious deformities. No edema. No obvious fractures. NEUROLOGICAL: Pupils 2 mm. Leftward deviation. Left arm and leg are moving spontaneously. Moves left hand towards ET tube with stimulation/sternal rub. Withdraws to right arm noxious stimulation and right leg noxious stimulation. Breathes over ventilator rate. Assessment and Plan - Assessment and Plan Plan: Neuro/Psych Acute encephalopathy -toxic metabolic versus EtOH withdrawal versus rule out PRES -MRI/MRA revealed bilateral posterior temporal/cerebellar and thalamic and posterior cerebellar abnormal signal. Decreased flow in the anterior right M2 segment. -Toxicology screen negative for acute findings -Minimize sedation -EEG - severely suppressed background may be consistent with encephalopathic process. No epileptiform features. Clinical correlation. -Neurology consultation with Dr. 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 Level was 2.310/10. Recheck 04/03 added -Lumbar puncture. Glucose was 43 but baseline glucose was 61. Gram stain negative. Many WBCs. See infectious disease Morphine sulfate 2 mg IV every 4 hours as needed pain Minimize sedation Respiratory Acute respiratory failure 2.8 x 2.1 x 0.8 cm mediastinal mass -PRVC 16/550/1/5/50 Ventilator bundle Albuterol/ipratropium aerosols every 6 hours with albuterol aerosols every 2 hours as needed dyspnea Spontaneous breathing trials when clinically indicated Follow-up chest x-ray in a.m. 04/03 Will likely need needle biopsy of mediastinal mass if able Cardiovascular Severe pulmonary hypertension Essential hypertension Cardiogram revealed EF 60-60%. Mild TR. Pulmonary arterial pressure 62.5 mmHg -Tolerate blood pressure 130 - 180 Currently on hydralazine 50 mg 3 times daily metoprolol tartrate 25 mg 3 times daily Renal/ Acute kidney injury Monitor urine output Accurate I's and O's Check BMP in a.m. 04/03 No indication for Henson catheter GI Elevated AST Hypoalbuminemia Hepatic steatosis Left liver cyst -Start vital 1.5 goal 45 cc an hour -Lansoprazole for GI prophylaxis -Docusate serum/senna 1 tablet twice daily for bowel regimen -P.o. meds down tube is acceptable Hematology Leukocytosis Normocytic anemia Thrombocytopenia -Serial hemoglobin determination and follow trends. -No indication for transfusion of blood products at this time ID -Culture for fevers as indicated -No evidence of infection at this time -Culture CSF -many WBCs no organisms identified- Currently on vancomycin, ceftriaxone and acyclovir ENDO Elevated TSH TSH was 7.1. Normal T4. Recheck 6-8 weeks MSK: Osteopenia Scoliosis retrolisthesis C4/5 Anterolisthesis C7/T1 PT evaluate and treat FEN Acute hypokalemia Currently on normal saline at 84 cc an hour. Replace potassium per ICU likely protocol. Prophylaxis -Chemical DVT prophylaxis with heparin subcu -Lansoprazole for GI ulcer prophylaxis Lines -Peripherals -Discontinue interosseous left lower leg Level 3 follow-up
[2018-04-02] MEDS: Chlorhexidine 0.12% Oral Kit 15 ML UDC OROPHARYNG SCH ×2 (09:15→20:32)
[2018-04-02] MEDS: Senna/Docusate Sodium 8.6/50 MG Tablet PO SCH ×2 (09:16→20:52)
[2018-04-02] MEDS: Fosphenytoin Inj 200 MGPE in Sodium Chlor 0.9% Inj 50 ML IV.SIG SCH ×3 (09:16→21:01)
--- NOTE | 2018-04-02 09:34 | P.PNNEU ---
Subjective Subjective Comments: No acute events Active Medications: Active Medications Acetaminophen (Tylenol) 650 mg PO Q6H PRN PRN Reason: PAIN 1-10 AND/OR FEVER >101F Last Admin: 04/01/18 11:38 Dose: 650 mg Al Hydroxide/Mg Hydroxide (Milk Of Magnrosa Liq) 30 ml PO Q12H PRN PRN Reason: Mild Constipation Albuterol (Duoneb Neb (Kirk)) 1 ampul NEB Q6HR NEB [facility] Albuterol (Albuterol Neb (Prn)) 2.5 mg NEB Q2HR NEB PRN PRN Reason: DYSPNEA Artificial Tears (Refresh Tears 0.5% Opth Drops) 1 drop EACH EYE BID [facility] Bisacodyl (Dulcolax Supp) 10 mg RECTAL DAILY PRN PRN Reason: SEVERE CONSITIPATION Chlorhexidine Gluconate (Peridex 0.12% Oral Kit) 15 ml OROPHARYNG BID@0800, 2000 [facility] Last Admin: 04/02/18 09:15 Dose: 15 ml Chlorhexidine Gluconate (Chlorhexidine 2% Cloth) 3 pack TOPICAL DAILY@0400 [facility] Stop: 04/06/18 03:59 Last Admin: 04/02/18 05:04 Dose: 3 pack Chlorhexidine Gluconate (Chlorhexidine 2% Cloth) 3 pack TOPICAL DAILY@0400 PRN PRN Reason: Extra cloth needed Stop: 04/06/18 03:59 Clonidine HCl (Catapres) 0.1 mg PO Q6H PRN PRN Reason: SBP > 180 Dextrose (D50w Vial) 50 ml IV.PUSH UNSCH PRN PRN Reason: PER HYPOGLYCEMIA PROTOCOL Folic Acid (Folic Acid) 1 mg PO DAILY [facility] Glucagon (Glucagon Inj) 1 mg OTHER PRN PRN PRN Reason: for Hypoglycemia Protocol Heparin Sodium (Porcine) (Heparin Inj) 5,000 units SQ Q12H [facility] Last Admin: 04/01/18 23:59 Dose: 5,000 units Hydralazine HCl (Apresoline) 50 mg PO TID [facility] Last Admin: 04/01/18 17:07 Dose: Not Given Sodium Chloride (Ns Inj) 1,000 mls @ 84 mls/hr IV.CONT .[id number] [facility] Last Admin: 04/01/18 23:35 Dose: 84 mls/hr Levetiracetam (Keppra 1000 Mg/100 Ml Premix) 100 mls @ 400 mls/hr IV.SIG Q12H [facility] Last Infusion: 04/02/18 03:44 Dose: Infused Fosphenytoin Sodium 200 mgpe/ (Sodium Chloride) 54 mls @ 216 mls/hr IV.SIG Q12HR [facility] Last Admin: 04/02/18 09:16 Dose: 216 mls/hr Ceftriaxone Sodium 2,000 mg/ (Sodium Chloride) 100 mls @ 200 mls/hr IV.SIG Q24H [facility] Last Admin: 04/02/18 09:15 Dose: 200 mls/hr Vancomycin HCl 1,250 mg/ (Sodium Chloride) 262.5 mls @ 250 mls/hr IV.SIG Q24H [facility] Last Infusion: 04/01/18 11:38 Dose: Infused Acyclovir Sodium 650 mg/ (Sodium Chloride) 113 mls @ 113 mls/hr IV.SIG Q12H [facility] Last Infusion: 04/02/18 00:35 Dose: Infused Magnesium Sulfate 4 gm/ Sodium (Chloride) 100 mls @ 50 mls/hr IV.SIG UNSCH PRN PRN Reason: For Magnesium 0.9 - 1.1 mg/dL Magnesium Sulfate 2 gm/ Sodium (Chloride) 100 mls @ 50 mls/hr IV.SIG UNSCH PRN PRN Reason: For Magnesium 1.2 - 1.6 mg/dL Potassium Chloride (Kcl 40 Meq Premix Inj) 40 meq in 100 mls @ 25 mls/hr IV.SIG Q2H PRN PRN Reason: For Potassium 2.8 - 3.2 mEq/L Potassium Chloride (Kcl 20 Meq Premix Inj) 20 meq in 100 mls @ 50 mls/hr IV.SIG Q2H PRN PRN Reason: For Potassium 3.3 - 3.5 mEq/L Potassium Chloride (Kcl 40 Meq Premix Inj) 40 meq in 100 mls @ 25 mls/hr IV.SIG UNSCH PRN PRN Reason: For Potassium 3.3 - 3.5 mEq/L Potassium Chloride (Kcl 20 Meq Premix Inj) 20 meq in 100 mls @ 50 mls/hr IV.SIG Q2H PRN PRN Reason: For Potassium 2.8 - 3.2 mEq/L Potassium Phosphate 30 mmol/ (Sodium Chloride) 260 mls @ 42 mls/hr IV.SIG UNSCH PRN PRN Reason: SEE LABEL COMMENTS Sodium Phosphate 30 mmol/ (Sodium Chloride) 260 mls @ 42 mls/hr IV.SIG UNSCH PRN PRN Reason: For Phosphorus < 2.5 mg/dL Insulin Aspart (Novolog Insulin Correctional Sugar Inj) 0 unit SQ Q6HR [facility]; Protocol Lactulose (Lactulose Liq) 30 ml PO DAILY PRN PRN Reason: SEVERE CONSITIPATION Lansoprazole (Prevacid Solutab) 30 mg NG/OG DAILY [facility] Last Admin: 04/02/18 09:16 Dose: 30 mg Lorazepam (Ativan Inj) 1 mg IV.PUSH Q15M PRN PRN Reason: SEIZURES Magnesium Oxide (Mag-Ox) 800 mg PO UNSCH PRN PRN Reason: For Magnesium 1.2 - 1.6 mg/dL Metoprolol Tartrate (Lopressor) 25 mg PO TID [facility] Last Admin: 04/01/18 17:08 Dose: Not Given Miscellaneous Information ([facility] Ordered Lab Info) 0 each OTHER ONCE ONE Stop: 04/04/18 09:46 Miscellaneous Medication () 1 each OROPHARYNG 0000,0400,1200,1600 [facility] Last Admin: 04/02/18 05:04 Dose: 1 each Morphine Sulfate (Morphine Inj) 2 mg IV.PUSH Q2H PRN PRN Reason: PAIN SCALE 6 TO 10 Last Admin: 04/01/18 02:18 Dose: 2 mg Multivitamins (Theragran) 1 tab PO DAILY [facility] Pharmacy Profile Note (Vancomycin Consult Pharmacy) 1 each OTHER UNSCH PRN PRN Reason: Pharmacy to dose Potassium Bicarb/Potassium Chloride (K-Lyte Cl Eff) 50 meq PO UNSCH PRN PRN Reason: For Potassium 3.3 - 3.5 mEq/L Last Admin: 04/02/18 09:23 Dose: 50 meq Potassium Phosphate (K-Phos Original) 2,000 mg PO Q4H PRN PRN Reason: Phosphorus Less Than 2.5 mg/dL Potassium Phosphate (K-Phos Original) 2,000 mg PO UNSCH PRN PRN Reason: SEE LABEL COMMENTS Senna/Docusate Sodium (Ce-Colace) 1 tab PO BID [facility] Last Admin: 04/02/18 09:16 Dose: 1 tab Sennosides (Senokot) 17.2 mg PO Q12H PRN PRN Reason: Moderate Constipation Sodium Chloride (Ns Flush) 2 ml IV.FLUSH BID [facility] Last Admin: 04/02/18 09:16 Dose: 2 ml Sodium Chloride (Ns Flush) 2 ml IV.FLUSH PRN PRN PRN Reason: FLUSH AFTER USING IV ACCESS Thiamine HCl (Vitamin B1) 100 mg PO DAILY [facility] Last Admin: 04/02/18 09:15 Dose: 100 mg Allergies/Adverse Reactions: Allergies Allergy/AdvReac Type Severity Reaction Status Date / Time Sulfa (Sulfonamide Allergy Severe Rash, Verified 04/01/18 10:22 Antibiotics) Generalized Review of Systems unobtainable due to endotracheal tube Physical Exam Vital signs: Vital Signs 04/01/18 09:33 04/01/18 09:44 04/01/18 09:45 Temperature Pulse Rate 94 H 94 H 95 H Respiratory Rate 41 H 35 H 29 H Blood Pressure 172/80 H 103/70 Pulse Oximetry 79 L 98 96 04/01/18 09:48 04/01/18 10:00 04/01/18 10:03 Temperature Pulse Rate 93 H 85 93 H Respiratory Rate 32 H 30 H 36 H Blood Pressure 109/73 112/69 Pulse Oximetry 97 95 97 04/01/18 10:15 04/01/18 10:18 04/01/18 10:30 Temperature Pulse Rate 91 H 89 91 H Respiratory Rate 20 17 34 H Blood Pressure 94/55 L Pulse Oximetry 84 L 86 L 100 04/01/18 10:33 04/01/18 10:45 04/01/18 10:48 Temperature Pulse Rate 89 90 93 H Respiratory Rate 21 18 24 Blood Pressure 99/52 L 132/61 Pulse Oximetry 91 L 100 100 04/01/18 11:00 04/01/18 11:03 04/01/18 11:15 Temperature Pulse Rate 93 H 92 H 93 H Respiratory Rate 27 H 18 19 Blood Pressure 129/59 L Pulse Oximetry 99 100 100 04/01/18 11:18 04/01/18 11:30 04/01/18 11:33 Temperature Pulse Rate 90 83 81 Respiratory Rate 24 16 16 Blood Pressure 107/53 L 72/45 L Pulse Oximetry 99 100 100 04/01/18 11:41 04/01/18 11:45 04/01/18 11:48 Temperature Pulse Rate 79 82 81 Respiratory Rate 27 H 27 H 32 H Blood Pressure 92/54 L 108/55 L Pulse Oximetry 100 100 100 04/01/18 11:49 04/01/18 12:00 04/01/18 12:03 Temperature 103.1 F H Pulse Rate 81 94 H Respiratory Rate 17 35 H 29 H Blood Pressure 115/60 Pulse Oximetry 100 99 100 04/01/18 12:12 04/01/18 12:15 04/01/18 12:18 Temperature 103.1 F H Pulse Rate 86 85 Respiratory Rate 18 19 Blood Pressure 103/58 L Pulse Oximetry 100 100 04/01/18 12:30 04/01/18 12:33 04/01/18 12:45 Temperature Pulse Rate 85 84 86 Respiratory Rate 16 18 24 Blood Pressure 104/59 L Pulse Oximetry 100 100 100 04/01/18 12:48 04/01/18 13:00 04/01/18 13:03 Temperature Pulse Rate 86 83 85 Respiratory Rate 22 18 19 Blood Pressure 113/64 116/65 Pulse Oximetry 100 100 100 04/01/18 13:15 04/01/18 13:18 04/01/18 13:30 Temperature Pulse Rate 88 91 H 93 H Respiratory Rate 24 21 24 Blood Pressure 117/65 Pulse Oximetry 100 100 100 04/01/18 13:33 04/01/18 13:45 04/01/18 13:48 Temperature Pulse Rate 98 H 97 H 97 H Respiratory Rate 35 H 25 H 30 H Blood Pressure 127/62 109/52 L Pulse Oximetry 100 100 100 04/01/18 14:00 04/01/18 14:03 04/01/18 14:15 Temperature Pulse Rate 101 H 101 H 99 H Respiratory Rate 16 22 16 Blood Pressure 105/54 L Pulse Oximetry 91 L 91 L 93 L 04/01/18 14:18 04/01/18 14:30 04/01/18 14:33 Temperature Pulse Rate 97 H 95 H 96 H Respiratory Rate 16 16 19 Blood Pressure 85/49 L 97/53 L Pulse Oximetry 85 L 97 100 04/01/18 14:45 04/01/18 14:48 04/01/18 15:00 Temperature Pulse Rate 92 H 90 104 H Respiratory Rate 19 19 28 H Blood Pressure 103/55 L Pulse Oximetry 100 100 99 04/01/18 15:03 04/01/18 15:15 04/01/18 15:18 Temperature Pulse Rate 101 H 105 H 106 H Respiratory Rate 25 H 36 H 37 H Blood Pressure 112/62 125/66 Pulse Oximetry 100 100 100 04/01/18 15:30 04/01/18 15:33 04/01/18 15:37 Temperature Pulse Rate 100 H 99 H Respiratory Rate 24 30 H 19 Blood Pressure 105/55 L Pulse Oximetry 100 100 100 04/01/18 15:45 04/01/18 15:48 04/01/18 16:00 Temperature 100.1 F H Pulse Rate 103 H 105 H 111 H Respiratory Rate 32 H 35 H 38 H Blood Pressure 117/55 L Pulse Oximetry 100 100 100 04/01/18 16:03 04/01/18 16:15 04/01/18 16:18 Temperature Pulse Rate 105 H 105 H 103 H Respiratory Rate 28 H 35 H 16 Blood Pressure 117/58 L 123/57 L Pulse Oximetry 100 100 100 04/01/18 16:30 04/01/18 16:33 04/01/18 16:45 Temperature Pulse Rate 100 H 98 H 92 H Respiratory Rate 19 28 H 16 Blood Pressure 114/59 L Pulse Oximetry 100 100 100 04/01/18 16:48 04/01/18 20:00 04/01/18 20:31 Temperature 99.8 F H Pulse Rate 88 76 Respiratory Rate 16 14 16 Blood Pressure 97/52 L 97/52 L Pulse Oximetry 100 100 100 04/01/18 22:00 04/01/18 23:20 04/02/18 00:00 Temperature 99.1 F Pulse Rate 76 69 Respiratory Rate 16 15 Blood Pressure 115/55 L Pulse Oximetry 100 100 04/02/18 02:00 04/02/18 03:53 04/02/18 04:00 Temperature 99.0 F Pulse Rate 69 71 Respiratory Rate 17 Blood Pressure 116/58 L Pulse Oximetry 100 98 04/02/18 06:00 Temperature Pulse Rate 71 Respiratory Rate Blood Pressure Pulse Oximetry Intake & Output 04/01/18 04/02/18 04/02/18 18:59 06:59 18:59 Intake Total 1129.5 / 1129.5 1267 / 1267 Output Total 230 / 230 450 / 450 Balance 899.5 / 899.5 817 / 817 Weight 71 kg Intake: IV 1129.5 / 1129.5 1267 / 1267 NS Inj 1,000 ML @ 84 mls/hr IV. 500 / 500 1000 / 1000 CONT .[id number] [facility] Rx#:[id number] Zovirax Inj 650 MG In NS Inj 113 / 113 113 / 113 100 ML @ 113 mls/hr IV.SIG Q12H [facility] Rx#:[id number] Cerebyx Inj 200 MGPE In NS Inj 54 / 54 54 / 54 50 ML @ 216 mls/hr IV.SIG Q12HR [facility] Rx#:[id number] Vancomycin Inj 1,250 MG In NS 262.5 / 262.5 Inj 250 ML @ 250 mls/hr IV.SIG Q24H [facility] Rx#:[id number] Rocephin Inj 2,000 MG In NS Inj 100 / 100 100 ML @ 200 mls/hr IV.SIG Q24H [facility] Rx#:[id number] Keppra 1000 mg/100 mL Premix 100 / 100 100 / 100 100 ML @ 400 mls/hr IV.SIG Q12H [facility] Rx#:[id number] Output: Urine Amount (Catheter) 230 / 230 450 / 450 Indwelling Urethral Catheter 230 / 230 450 / 450 Other: Date of Last Bowel Movement 04/01/18 04/01/18 Narrative: GENERAL: in NAD, SKIN: Warm and dry. HEAD: Atraumatic. Normocephalic. EYES: Pupils equal and round. No scleral icterus. ENT: No nasal bleeding or discharge. Mucous membranes pink and moist. NECK: Trachea midline. No JVD. CARDIOVASCULAR: Regular rate and rhythm. RESPIRATORY: Intubated no accessory muscle use. GASTROINTESTINAL: Abdomen soft, non-tender, nondistended. MUSCULOSKELETAL: Awakens, follow simple motor request wiggles toes showed me her right thumb, mild left gaze preference, OU 3 mm sluggishly reactive, no involuntary movements PSYCHIATRIC: Intubated - Constitutional no acute distress - Routine HEENT Exam Head: Present: normocephalic - Urinary Catheter Management Female External Cath placed during this visit: no Indwelling Urethral Catheter Cath placed during this visit: yes Reason for continuing: Hourly intake/output Insertion date: 04/01/18 Objective Laboratory Results - last 24 hr 04/01/18 04/01/18 04/01/18 08:45 08:45 08:45 WBC RBC Hgb Hct MCV MCH MCHC RDW Plt Count MPV Neut % (Auto) Lymph % (Auto) [place] % (Auto) Eos % (Auto) Baso % (Auto) Neut # (Auto) Lymph # (Auto) Stan[place] # (Auto) Eos # (Auto) Baso # (Auto) WBC Differential Differential Comment Sodium Potassium Chloride Carbon Dioxide Anion Gap BUN Creatinine Estimated GFR Random Glucose Calcium Total Bilirubin AST ALT Alkaline Phosphatase Total Protein Albumin CSF Volume (1) 2.0 CSF Supernat Color (1) Clear CSF Gross Blood (1) 1+ A CSF WBC (1) CSF RBC (1) CSF Volume (2) 2.0 CSF Supernat Color (2) Clear CSF Gross Blood (2) 1+ A CSF Volume (3) 2.0 CSF Supernat Color (3) Clear CSF Gross Blood (3) Trace CSF Volume (4) 2.0 CSF Supernat Color (4) Clear CSF Gross Blood (4) Trace CSF WBC (4) 237 H CSF RBC (4) 32 H CSF Neutrophils % 94 CSF Lymphocytes % 3 CSF Monocytes % 1 CSF Histiocytes 2 CSF Glucose 43 CSF LDH CSF Lactic Acid CSF Total Protein 94.8 H 04/01/18 04/01/18 04/01/18 08:45 08:45 08:45 WBC RBC Hgb Hct MCV MCH MCHC RDW Plt Count MPV Neut % (Auto) Lymph % (Auto) Stan[place] % (Auto) Eos % (Auto) Baso % (Auto) Neut # (Auto) Lymph # (Auto) Stanly # (Auto) Eos # (Auto) Baso # (Auto) WBC Differential Differential Comment Sodium Potassium Chloride Carbon Dioxide Anion Gap BUN Creatinine Estimated GFR Random Glucose Calcium Total Bilirubin AST ALT Alkaline Phosphatase Total Protein Albumin CSF Volume (1) CSF Supernat Color (1) CSF Gross Blood (1) CSF WBC (1) ND CSF RBC (1) ND CSF Volume (2) CSF Supernat Color (2) CSF Gross Blood (2) CSF Volume (3) CSF Supernat Color (3) CSF Gross Blood (3) CSF Volume (4) CSF Supernat Color (4) CSF Gross Blood (4) CSF WBC (4) CSF RBC (4) CSF Neutrophils % CSF Lymphocytes % CSF Monocytes % CSF Histiocytes CSF Glucose CSF LDH 44 CSF Lactic Acid 4.8 H CSF Total Protein 04/02/18 04/02/18 05:35 05:35 WBC 11.1 H RBC 3.58 L Hgb 10.7 L D Hct 31.6 L MCV 88.2 MCH 30.0 MCHC 34.0 RDW 14.7 Plt Count 128 L MPV 7.2 Neut % (Auto) 85.4 H Lymph % (Auto) 5.7 L Stan[place] % (Auto) 8.4 H Eos % (Auto) 0.1 Baso % (Auto) 0.4 Neut # (Auto) 9.5 H Lymph # (Auto) 0.6 L Stanly # (Auto) 0.9 Eos # (Auto) 0.0 Baso # (Auto) 0.0 WBC Differential . Differential Comment Auto diff final Sodium 139 Potassium 3.4 L Chloride 106 Carbon Dioxide 20.7 L Anion Gap 12 BUN 22 H Creatinine 1.33 H Estimated GFR 38 L Random Glucose 86 Calcium 7.9 L Total Bilirubin 0.7 AST 88 H ALT 40 Alkaline Phosphatase 75 Total Protein 5.1 L Albumin 2.5 L D CSF Volume (1) CSF Supernat Color (1) CSF Gross Blood (1) CSF WBC (1) CSF RBC (1) CSF Volume (2) CSF Supernat Color (2) CSF Gross Blood (2) CSF Volume (3) CSF Supernat Color (3) CSF Gross Blood (3) CSF Volume (4) CSF Supernat Color (4) CSF Gross Blood (4) CSF WBC (4) CSF RBC (4) CSF Neutrophils % CSF Lymphocytes % CSF Monocytes % CSF Histiocytes CSF Glucose CSF LDH CSF Lactic Acid CSF Total Protein Microbiology 04/01/18 08:45 Gram Stain - Final Lumbar Puncture Review/Management - Diagnosis (1) Seizure Code(s): R56.9 - Unspecified convulsions Status: Acute Current Visit: Yes (2) Acute encephalopathy Code(s): G93.40 - Encephalopathy, unspecified Status: Acute Current Visit: Yes (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 Findings may be suggestive of PRES. posterior reversible leukoencephalopathy syndrome or reversible vasoconstriction syndrome. However no clear documentation of severe hypertension; this can also be caused by chemotherapeutic agents No clear documentation of any cardiac arrest or hypoxia although possibility however as there is no diffusion restriction on MRI scan I suspect hypoxia is less likely and her prognosis should be more favorable Exam improved today CSF studies reviewed neutrophilic leukocytosis, elevated protein normal glucose Gram stain negative for organisms follow-up rest of studies Recommendation Mental status improved Abnormalities on CSF may be related to infection versus inflammatory fever second Follow-up rest of cultures Continue IV acyclovir until PCR returns Dilantin dose increased Discussed with critical care Extubation as feasible Follow exam
[2018-04-02] MEDS: hydrALAZINE 50 MG Tablet PO SCH ×3 (09:46→17:22)
[2018-04-02] MEDS: Metoprolol Tartrate 25 MG Tablet PO SCH ×3 (09:47→17:21)
[2018-04-02] MEDS: Carboxymethylcellulose 0.5% Opth Drops 15 ML Bottle EACH EYE SCH ×2 (09:47→20:32)
[2018-04-02] MEDS: Vancomycin Inj 1,250 MG in Sodium Chlor 0.9% Inj 250 ML IV.SIG SCH (10:13)
--- NOTE | 2018-04-02 10:37 | P.DIET ---
Nutritional Evaluation Type of nutrition evaluation: initial Nutrition consult regarding: Tube Feeding Objective - Diagnosis Coma - Objective % IBW: 136 (IBW = 110#) Body Weight Used for Calculations: Upper end of IBW (55 kg) Energy Needs - Lower Range (kCal/kg): 25 Energy Needs - Upper Range (kCal/kg): 30 Lower Limit kCal/kg (kCals): 1,375 Upper Limit kCal/kg (kCals): 1,650 Lower Limit Protein Factor (Grams per Kg): 1.0 Upper Limit Protein Factor (Grams per Kg): 1.5 Lower Protein Needs (Protein): 55 Upper Protein Needs (Protein): 83 Dietitian Reviewed in Medical Record: Curent medications, Intake & Output, Labs , Medical history, Tube feeding Objective Comments: Meds include MVI/ folic acid/ thiamin Assessment Assessment: Pt is intubated and off sedation and needs TfFng to meet nutritional needs. Agree with current order for Vital 1.5 @ 45 mls/hr goal to provide 1620 kcals, 73 gms protein and 825 mls of free water. Recommendations: Vital 1.5 @ 45 mls/hr goal Dietitian to Monitor: Lab values, Intake & Output, Tube feeding tolerance, Weight change, Medical course
[2018-04-02] MEDS: Sod Chloride 0.9% Inj 1,000 ML IV.CONT SCH ×2 (11:11→21:30)
[2018-04-02] MEDS: Heparin - SQ 10,000 UNITS/ML Vial SQ SCH ×2 (11:13→22:11)
[2018-04-02] MEDS: ACYCLOVIR IV.SIG SCH ×2 (11:31→22:11)
[2018-04-02] MEDS: SODIUM CHLOR 0.9% IV.SIG SCH ×2 (11:31→22:11)
[2018-04-02] MEDS: Insulin NovoLOG Aspart Correctional Sugar Inj SQ SCH ×2 (11:55→17:21)
[2018-04-02 12:55] LABS: Bilirubin,Urine Negative (Negative); Clarity,Urine Hazy (Clear); Color,Urine Amber (Yellw/Straw); Glucose,Urine (UA) Negative (Negative); Leukocyte Esterase,Urine Trace (Negative); Mucus,Urine Few /lpf (Occasional); Nitrite,Urine Negative (Negative); Specific Gravity,Urine 1.025 (1.002-1.035); Squamous Epithelial Cell,Urine <1 /hpf (0-5)
[2018-04-02] MEDS: Morphine Sulfate Inj 2 MG/ML Vial IV.PUSH PRN ×2 (17:22→17:45)
[2018-04-02 17:23] LABS: Albumin 2.4 g/dL (3.4-5.0); Calcium 7.4 mg/dL (8.5-10.1); Carbon Dioxide 22.5 meq/L (21.0-32.0); Potassium 3.9 meq/L (3.5-5.1); Total Protein 4.9 g/dL (6.4-8.2)
[2018-04-03] MEDS: Insulin NovoLOG Aspart Correctional Sugar Inj SQ SCH ×5 (00:01→23:00)
[2018-04-03] MEDS: Oral Hygiene Kit OROPHARYNG SCH ×5 (00:02→23:01)
[2018-04-03] MEDS: Morphine Sulfate Inj 2 MG/ML Vial IV.PUSH PRN ×2 (01:28→17:19)
[2018-04-03 01:56] LABS: Enterovirus (PCR)Source CSF; Enterovirus RNA Qual (PCR) Negative (Negative)
[2018-04-03] MEDS: levETIRAcetam 1000mg/100mL Inj 100 ML IV.SIG SCH ×2 (04:00→16:59)
--- NOTE | 2018-04-03 04:11 | XR ---
EXAM DATE: 04/03/2018 6:00 AM EDT AGE/SEX: 78 years / Female INDICATIONS: Respiratory failure. CLINICAL DATA: This is the patient's subsequent encounter. Patient reports that signs and symptoms h ave been present for 4 - 6 days and indicates a pain score of Nonresponsive. MEDICAL/SURGICAL HISTORY: Non-responsive. Non-responsive. COMPARISON: [facility], CHEST 1V SINGLE AP, 04/01/2018. . FINDINGS: Endotracheal tube in good position. NG enters stomach. Right central line at cavoatrial junction. Mil d basilar airspace disease and trace pleural fluid. No pneumothorax. CONCLUSION: Support apparatus in satisfactory position. Mild basilar airspace disease with small effusions. Electronically signed by: Humble Jones MD 04/03/2018 4:10 AM EDT
[2018-04-03 05:05] LABS: Albumin 2.2 g/dL (3.4-5.0); Anion Gap 8 meq/L (5-15); Aspartate Aminotransferase 69 U/L (15-37); Blood Urea Nitrogen 18 mg/dL (7-18); Calcium 7.7 mg/dL (8.5-10.1); Carbon Dioxide 22.8 meq/L (21.0-32.0); Chloride 112 meq/L (98-107); Glomerular Filtration Rate 78 mL/min (>89); Glucose,Random 167 mg/dL (74-106); Magnesium 1.6 mg/dL (1.5-2.5); Potassium 3.5 meq/L (3.5-5.1); Sodium 143 meq/L (136-145)
[2018-04-03 05:13] LABS: Baso % (Auto) 0.4 % (0.0-2.0); Eos # (Auto) 0.1 th/mm3 (0.0-0.4); Eos % (Auto) 2.1 % (0.0-4.0); Hematocrit 28.4 % (35.0-46.0); Hemoglobin 9.5 gm/dL (11.6-15.3); Lymph # (Auto) 0.4 th/mm3 (1.0-4.8); Lymph % (Auto) 8.4 % (9.0-44.0); Mean Corpuscular HGB Conc 33.4 % (32.0-36.0); Mean Corpuscular Volume 89.6 fL (80.0-100.0); Mean Platelet Volume 7.3 fL (7.0-11.0); Mono # (Auto) 0.6 th/mm3 (0.0-0.9); Mono % (Auto) 11.2 % (0.0-8.0); Neut # (Auto) 4.1 th/mm3 (1.8-7.7); Neut % (Auto) 77.9 % (16.0-70.0); Platelet Count 97 th/mm3 (150-450); Red Blood Count 3.17 mil/mm3 (4.00-5.30); White Blood Count 5.3 th/mm3 (4.0-11.0)
[2018-04-03 05:18] LABS: Alanine Aminotransferase 44 U/L (10-53); Alkaline Phosphatase 69 U/L (45-117); Phenytoin (Dilantin) 6.6 mcg/mL (10.0-20.0); Phosphorus 1.6 mg/dL (2.5-4.9); Total Protein 4.9 g/dL (6.4-8.2)
[2018-04-03] MEDS: Chlorhexidine Gluconate 2% 1 Pack (2 Cloths) TOPICAL SCH (05:18)
[2018-04-03] MEDS: Fosphenytoin Inj 200 MGPE in Sodium Chlor 0.9% Inj 50 ML IV.SIG SCH ×3 (05:33→21:07)
[2018-04-03 06:45] LABS: Eosinophils 2 % (0-4); Lymphocytes 3 % (9-44); Monocytes 4 % (0-8)
[2018-04-03 06:46] LABS: Ovalocytes 1+; Platelet Morphology Normal (Normal)
--- NOTE | 2018-04-03 07:46 | P.PNNEU ---
Subjective Subjective Comments: No acute events Active Medications: Active Medications Acetaminophen (Tylenol) 650 mg PO Q6H PRN PRN Reason: PAIN 1-10 AND/OR FEVER >101F Last Admin: 04/01/18 11:38 Dose: 650 mg Al Hydroxide/Mg Hydroxide (Milk Of Magnrosa Liq) 30 ml PO Q12H PRN PRN Reason: Mild Constipation Albuterol (Duoneb Neb ([facility])) 1 ampul NEB Q6HR NEB [facility] Last Admin: 04/03/18 04:39 Dose: 1 ampul Albuterol (Albuterol Neb (Prn)) 2.5 mg NEB Q2HR NEB PRN PRN Reason: DYSPNEA Artificial Tears (Refresh Tears 0.5% Opth Drops) 1 drop EACH EYE BID [facility] Last Admin: 04/02/18 20:32 Dose: 1 drop Bisacodyl (Dulcolax Supp) 10 mg RECTAL DAILY PRN PRN Reason: SEVERE CONSITIPATION Chlorhexidine Gluconate (Peridex 0.12% Oral Kit) 15 ml OROPHARYNG BID@0800, 2000 [facility] Last Admin: 04/02/18 20:32 Dose: 15 ml Chlorhexidine Gluconate (Chlorhexidine 2% Cloth) 3 pack TOPICAL DAILY@0400 [facility] Stop: 04/06/18 03:59 Last Admin: 04/03/18 05:18 Dose: 3 pack Chlorhexidine Gluconate (Chlorhexidine 2% Cloth) 3 pack TOPICAL DAILY@0400 PRN PRN Reason: Extra cloth needed Stop: 04/06/18 03:59 Clonidine HCl (Catapres) 0.1 mg PO Q6H PRN PRN Reason: SBP > 180 Dextrose (D50w Vial) 50 ml IV.PUSH UNSCH PRN PRN Reason: PER HYPOGLYCEMIA PROTOCOL Folic Acid (Folic Acid) 1 mg PO DAILY [facility] Glucagon (Glucagon Inj) 1 mg OTHER PRN PRN PRN Reason: for Hypoglycemia Protocol Heparin Sodium (Porcine) (Heparin Inj) 5,000 units SQ Q12H [facility] Last Admin: 04/02/18 22:11 Dose: 5,000 units Hydralazine HCl (Apresoline) 50 mg PO TID [facility] Last Admin: 04/02/18 17:22 Dose: Not Given Sodium Chloride (Ns Inj) 1,000 mls @ 84 mls/hr IV.CONT .[id number] [facility] Last Admin: 04/02/18 21:30 Dose: 84 mls/hr Levetiracetam (Keppra 1000 Mg/100 Ml Premix) 100 mls @ 400 mls/hr IV.SIG Q12H [facility] Last Infusion: 04/03/18 04:15 Dose: Infused Ceftriaxone Sodium 2,000 mg/ (Sodium Chloride) 100 mls @ 200 mls/hr IV.SIG Q24H [facility] Last Infusion: 04/02/18 10:13 Dose: Infused Vancomycin HCl 1,250 mg/ (Sodium Chloride) 262.5 mls @ 250 mls/hr IV.SIG Q24H [facility] Last Infusion: 04/02/18 17:10 Dose: Infused Acyclovir Sodium 650 mg/ (Sodium Chloride) 113 mls @ 113 mls/hr IV.SIG Q12H [facility] Last Infusion: 04/02/18 23:11 Dose: Infused Magnesium Sulfate 4 gm/ Sodium (Chloride) 100 mls @ 50 mls/hr IV.SIG UNSCH PRN PRN Reason: For Magnesium 0.9 - 1.1 mg/dL Magnesium Sulfate 2 gm/ Sodium (Chloride) 100 mls @ 50 mls/hr IV.SIG UNSCH PRN PRN Reason: For Magnesium 1.2 - 1.6 mg/dL Potassium Chloride (Kcl 40 Meq Premix Inj) 40 meq in 100 mls @ 25 mls/hr IV.SIG Q2H PRN PRN Reason: For Potassium 2.8 - 3.2 mEq/L Potassium Chloride (Kcl 20 Meq Premix Inj) 20 meq in 100 mls @ 50 mls/hr IV.SIG Q2H PRN PRN Reason: For Potassium 3.3 - 3.5 mEq/L Potassium Chloride (Kcl 40 Meq Premix Inj) 40 meq in 100 mls @ 25 mls/hr IV.SIG UNSCH PRN PRN Reason: For Potassium 3.3 - 3.5 mEq/L Potassium Chloride (Kcl 20 Meq Premix Inj) 20 meq in 100 mls @ 50 mls/hr IV.SIG Q2H PRN PRN Reason: For Potassium 2.8 - 3.2 mEq/L Potassium Phosphate 30 mmol/ (Sodium Chloride) 260 mls @ 42 mls/hr IV.SIG UNSCH PRN PRN Reason: SEE LABEL COMMENTS Last Admin: 04/03/18 06:09 Dose: 42 mls/hr Sodium Phosphate 30 mmol/ (Sodium Chloride) 260 mls @ 42 mls/hr IV.SIG UNSCH PRN PRN Reason: For Phosphorus < 2.5 mg/dL Fosphenytoin Sodium 200 mgpe/ (Sodium Chloride) 54 mls @ 216 mls/hr IV.SIG Q8HR [facility] Last Infusion: 04/03/18 05:48 Dose: Infused Insulin Aspart (Novolog Insulin Correctional Sugar Inj) 0 unit SQ Q6HR [facility]; Protocol Last Admin: 04/03/18 06:09 Dose: 3 unit Lactulose (Lactulose Liq) 30 ml PO DAILY PRN PRN Reason: SEVERE CONSITIPATION Lansoprazole (Prevacid Solutab) 30 mg NG/OG DAILY [facility] Last Admin: 04/02/18 09:16 Dose: 30 mg Lorazepam (Ativan Inj) 1 mg IV.PUSH Q15M PRN PRN Reason: SEIZURES Magnesium Oxide (Mag-Ox) 800 mg PO UNSCH PRN PRN Reason: For Magnesium 1.2 - 1.6 mg/dL Last Admin: 04/03/18 05:36 Dose: 800 mg Metoprolol Tartrate (Lopressor) 25 mg PO TID [facility] Last Admin: 04/02/18 17:21 Dose: Not Given Miscellaneous Information ([facility] Ordered Lab Info) 0 each OTHER ONCE ONE Stop: 04/04/18 09:46 Miscellaneous Medication () 1 each OROPHARYNG 0000,0400,1200,1600 [facility] Last Admin: 04/03/18 05:20 Dose: 1 each Morphine Sulfate (Morphine Inj) 2 mg IV.PUSH Q2H PRN PRN Reason: PAIN SCALE 6 TO 10 Last Admin: 04/03/18 01:28 Dose: 2 mg Multivitamins (Theragran) 1 tab PO DAILY [facility] Pharmacy Profile Note (Vancomycin Consult Pharmacy) 1 each OTHER UNSCH PRN PRN Reason: Pharmacy to dose Potassium Bicarb/Potassium Chloride (K-Lyte Cl Eff) 50 meq PO UNSCH PRN PRN Reason: For Potassium 3.3 - 3.5 mEq/L Last Admin: 04/02/18 09:23 Dose: 50 meq Potassium Phosphate (K-Phos Original) 2,000 mg PO Q4H PRN PRN Reason: Phosphorus Less Than 2.5 mg/dL Potassium Phosphate (K-Phos Original) 2,000 mg PO UNSCH PRN PRN Reason: SEE LABEL COMMENTS Senna/Docusate Sodium (Ce-Colace) 1 tab PO BID [facility] Last Admin: 04/02/18 20:52 Dose: 1 tab Sennosides (Senokot) 17.2 mg PO Q12H PRN PRN Reason: Moderate Constipation Sodium Chloride (Ns Flush) 2 ml IV.FLUSH BID [facility] Last Admin: 04/02/18 20:32 Dose: 2 ml Sodium Chloride (Ns Flush) 2 ml IV.FLUSH PRN PRN PRN Reason: FLUSH AFTER USING IV ACCESS Thiamine HCl (Vitamin B1) 100 mg PO DAILY [facility] Last Admin: 04/02/18 09:15 Dose: 100 mg Allergies/Adverse Reactions: Allergies Allergy/AdvReac Type Severity Reaction Status Date / Time Sulfa (Sulfonamide Allergy Severe Rash, Verified 04/01/18 10:22 Antibiotics) Generalized Review of Systems unobtainable due to endotracheal tube, unobtainable due to mental status Physical Exam Vital signs: Vital Signs 04/02/18 08:00 04/02/18 09:51 04/02/18 10:00 Temperature 98.6 F Pulse Rate 72 81 81 Respiratory Rate 16 16 Blood Pressure 111/60 Pulse Oximetry 100 100 04/02/18 11:58 04/02/18 12:00 04/02/18 14:00 Temperature 98.6 F Pulse Rate 82 90 Respiratory Rate 21 27 H Blood Pressure 126/72 Pulse Oximetry 96 100 04/02/18 16:00 04/02/18 17:31 04/02/18 18:00 Temperature 98.7 F Pulse Rate 79 87 80 Respiratory Rate 17 21 Blood Pressure 110/62 Pulse Oximetry 100 04/02/18 18:23 04/02/18 20:00 04/02/18 20:10 Temperature 98.6 F Pulse Rate 72 71 Respiratory Rate 17 17 20 Blood Pressure 122/59 L Pulse Oximetry 100 100 04/02/18 22:00 04/02/18 23:38 04/03/18 00:00 Temperature 98.6 F Pulse Rate 76 77 Respiratory Rate 16 18 Blood Pressure 112/57 L Pulse Oximetry 100 100 04/03/18 02:00 04/03/18 04:00 04/03/18 04:41 Temperature 98.7 F Pulse Rate 76 70 73 Respiratory Rate 17 16 Blood Pressure 117/61 Pulse Oximetry 100 04/03/18 06:00 Temperature Pulse Rate 68 Respiratory Rate Blood Pressure Pulse Oximetry Intake & Output 04/02/18 04/03/18 04/03/18 18:59 06:59 18:59 Intake Total 2347.5 / 2347.5 1991 Output Total 350 / 350 Balance 1996.5 / 1996.5 1991 Weight 71.5 kg Intake: IV 1982.5 / 1982.5 1321 / 1321 Neosynephrine Inj 40 MG In NS 50 / 50 Inj 496 ML @ 40 MCG/MIN 30 mls/ hr IV.CONT TITRATE PRN Rx#: [id number] NS Inj 1,000 ML @ 84 mls/hr IV. 1000 / 1000 1000 / 1000 CONT .[id number] [facility] Rx#:[id number] Zovirax Inj 650 MG In NS Inj 113 / 113 113 / 113 100 ML @ 113 mls/hr IV.SIG Q12H [facility] Rx#:[id number] Cerebyx Inj 200 MGPE In NS Inj 108 / 108 108 / 108 50 ML @ 216 mls/hr IV.SIG Q8HR [facility] Rx#:[id number] Vancomycin Inj 1,250 MG In NS 512.5 / 512.5 Inj 250 ML @ 250 mls/hr IV.SIG Q24H [facility] Rx#:[id number] Rocephin Inj 2,000 MG In NS Inj 100 / 100 100 ML @ 200 mls/hr IV.SIG Q24H [facility] Rx#:[id number] Keppra 1000 mg/100 mL Premix 100 / 100 100 / 100 100 ML @ 400 mls/hr IV.SIG Q12H [facility] Rx#:[id number] Oral 0 / 0 Tube Feeding 244 / 244 551 / 551 Water Bolus Amount 120 / 120 120 / 120 Output: Urine Amount (Catheter) 350 / 350 Indwelling Urethral Catheter 350 / 350 Other: Date of Last Bowel Movement 04/01/18 04/01/18 Narrative: GENERAL: in NAD, SKIN: Warm and dry. HEAD: Atraumatic. Normocephalic. EYES: Pupils equal and round. No scleral icterus. ENT: No nasal bleeding or discharge. Mucous membranes pink and moist. NECK: Trachea midline. No JVD. CARDIOVASCULAR: Regular rate and rhythm. RESPIRATORY: Intubated no accessory muscle use. GASTROINTESTINAL: Abdomen soft, non-tender, nondistended. MUSCULOSKELETAL: Awakens, inconsistently follows this morning, does give a crude land measurer bilaterally mild withdrawal lower extremities, OU 3 mm sluggishly reactive, no involuntary movements PSYCHIATRIC: Intubated - Constitutional no acute distress - Routine HEENT Exam Head: Present: normocephalic Eye: Present: EOMI - Urinary Catheter Management Female External Cath placed during this visit: no Indwelling Urethral Catheter Cath placed during this visit: yes, but has since been removed by the nurse Reason for continuing: Hourly intake/output Insertion date: 04/01/18 Removal date: 04/02/18 Removal time: 07:00 Objective Laboratory Results - last 24 hr 04/01/18 04/01/18 04/02/18 08:45 08:45 10:55 WBC RBC Hgb Hct MCV MCH MCHC RDW Plt Count MPV Prelim Diff (Auto) Neut % (Auto) Lymph % (Auto) [place] % (Auto) Eos % (Auto) Baso % (Auto) Neut # (Auto) Lymph # (Auto) [place] # (Auto) Eos # (Auto) Baso # (Auto) WBC Differential Seg Neuts % (Manual) Band Neuts % (Manual) Lymphocytes % (Manual) Monocytes % (Manual) Eosinophils % (Manual) Abs Neuts (Manual) Differential Comment Platelet Estimate Platelet Morphology Ovalocytes Sodium Potassium Chloride Carbon Dioxide Anion Gap BUN Creatinine Estimated GFR POC Glucose Random Glucose Calcium Prot Corrected Calcium Phosphorus Magnesium Total Bilirubin AST ALT Alkaline Phosphatase Total Protein Albumin Urine Color Daniella Urine Clarity Hazy H Urine pH 5.0 Ur Specific [place] 1.025 Urine Protein 30 H Urine Glucose (UA) Negative Urine Ketones Trace H Urine Occult Blood Moderate H Urine Nitrate Negative Urine Bilirubin Negative Urine Urobilinogen Less than 2 Ur Leukocyte Esterase Trace H Urine RBC 19 H Urine WBC 7 H Ur Squamous Epith Cells <1 Urine Mucus Few H Micro UA Comment Culture not ind Ur Microscopic Review Not Reportable Urine Culture Comments Culture not ind CSF Herpes I DNA (PCR) Negative CSF Herpes II DNA (PCR) Negative Phenytoin Enterovirus Source Csf Enterovirus RNA (PCR) Negative 04/02/18 04/02/18 04/02/18 11:39 16:30 17:02 WBC RBC Hgb Hct MCV MCH MCHC RDW Plt Count MPV Prelim Diff (Auto) Neut % (Auto) Lymph % (Auto) [place] % (Auto) Eos % (Auto) Baso % (Auto) Neut # (Auto) Lymph # (Auto) [place] # (Auto) Eos # (Auto) Baso # (Auto) WBC Differential Seg Neuts % (Manual) Band Neuts % (Manual) Lymphocytes % (Manual) Monocytes % (Manual) Eosinophils % (Manual) Abs Neuts (Manual) Differential Comment Platelet Estimate Platelet Morphology Ovalocytes Sodium 143 Potassium 3.9 Chloride 108 H Carbon Dioxide 22.5 Anion Gap 13 BUN 21 H Creatinine 0.98 Estimated GFR 55 L POC Glucose 107 162 H Random Glucose 158 H Calcium 7.4 L* Prot Corrected Calcium 8.6 Phosphorus Magnesium Total Bilirubin 0.5 AST 84 H ALT 41 Alkaline Phosphatase 74 Total Protein 4.9 L Albumin 2.4 L Urine Color Urine Clarity Urine pH Ur Specific [place] Urine Protein Urine Glucose (UA) Urine Ketones Urine Occult Blood Urine Nitrate Urine Bilirubin Urine Urobilinogen Ur Leukocyte Esterase Urine RBC Urine WBC Ur Squamous Epith Cells Urine Mucus Micro UA Comment Ur Microscopic Review Urine Culture Comments CSF Herpes I DNA (PCR) CSF Herpes II DNA (PCR) Phenytoin Enterovirus Source Enterovirus RNA (PCR) 04/02/18 04/03/18 04/03/18 23:45 04:15 04:15 WBC 5.3 D RBC 3.17 L Hgb 9.5 L Hct 28.4 L MCV 89.6 MCH 30.0 MCHC 33.4 RDW 15.0 Plt Count 97 L MPV 7.3 Prelim Diff (Auto) Slide review pending Neut % (Auto) 77.9 H Lymph % (Auto) 8.4 L [place] % (Auto) 11.2 H Eos % (Auto) 2.1 Baso % (Auto) 0.4 Neut # (Auto) 4.1 Lymph # (Auto) 0.4 L [place] # (Auto) 0.6 Eos # (Auto) 0.1 Baso # (Auto) 0.0 WBC Differential Manual diff final Seg Neuts % (Manual) 75 H Band Neuts % (Manual) 16 H Lymphocytes % (Manual) 3 L Monocytes % (Manual) 4 Eosinophils % (Manual) 2 Abs Neuts (Manual) 4.8 Differential Comment . Platelet Estimate Low L Platelet Morphology Normal Ovalocytes 1+ H Sodium 143 Potassium 3.5 Chloride 112 H Carbon Dioxide 22.8 Anion Gap 8 BUN 18 Creatinine 0.72 Estimated GFR 78 L POC Glucose 222 H Random Glucose 167 H Calcium 7.7 L Prot Corrected Calcium Phosphorus 1.6 L Magnesium 1.6 Total Bilirubin 0.5 AST 69 H ALT 44 Alkaline Phosphatase 69 Total Protein 4.9 L Albumin 2.2 L Urine Color Urine Clarity Urine pH Ur Specific [place] Urine Protein Urine Glucose (UA) Urine Ketones Urine Occult Blood Urine Nitrate Urine Bilirubin Urine Urobilinogen Ur Leukocyte Esterase Urine RBC Urine WBC Ur Squamous Epith Cells Urine Mucus Micro UA Comment Ur Microscopic Review Urine Culture Comments CSF Herpes I DNA (PCR) CSF Herpes II DNA (PCR) Phenytoin 6.6 L Enterovirus Source Enterovirus RNA (PCR) 04/03/18 05:38 WBC RBC Hgb Hct MCV MCH MCHC RDW Plt Count MPV Prelim Diff (Auto) Neut % (Auto) Lymph % (Auto) [place] % (Auto) Eos % (Auto) Baso % (Auto) Neut # (Auto) Lymph # (Auto) [place] # (Auto) Eos # (Auto) Baso # (Auto) WBC Differential Seg Neuts % (Manual) Band Neuts % (Manual) Lymphocytes % (Manual) Monocytes % (Manual) Eosinophils % (Manual) Abs Neuts (Manual) Differential Comment Platelet Estimate Platelet Morphology Ovalocytes Sodium Potassium Chloride Carbon Dioxide Anion Gap BUN Creatinine Estimated GFR POC Glucose 208 H Random Glucose Calcium Prot Corrected Calcium Phosphorus Magnesium Total Bilirubin AST ALT Alkaline Phosphatase Total Protein Albumin Urine Color Urine Clarity Urine pH Ur Specific [place] Urine Protein Urine Glucose (UA) Urine Ketones Urine Occult Blood Urine Nitrate Urine Bilirubin Urine Urobilinogen Ur Leukocyte Esterase Urine RBC Urine WBC Ur Squamous Epith Cells Urine Mucus Micro UA Comment Ur Microscopic Review Urine Culture Comments CSF Herpes I DNA (PCR) CSF Herpes II DNA (PCR) Phenytoin Enterovirus Source Enterovirus RNA (PCR) Microbiology 04/02/18 10:35 Influenza Types A,B Antigen - Final Nasal Wash Negative for FLU A and B antigen Infection due to influenza A or B cannot be ruled out since the antigen present in the sample may be below the detection limit of the test. 04/01/18 08:45 Gram Stain - Final Lumbar Puncture CSF Culture - Preliminary No growth in 24 hours Review/Management - Diagnosis (1) Acute encephalopathy Code(s): G93.40 - Encephalopathy, unspecified Status: Acute Current Visit: Yes (2) Seizure Code(s): R56.9 - Unspecified convulsions Status: Acute Current Visit: Yes (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 Findings may be suggestive of PRES. posterior reversible leukoencephalopathy syndrome or reversible vasoconstriction syndrome. However no clear documentation of severe hypertension; this can also be caused by chemotherapeutic agents No clear documentation of any cardiac arrest or hypoxia although possibility however as there is no diffusion restriction on MRI scan I suspect hypoxia is less likely and her prognosis should be more favorable Exam improved today CSF studies reviewed neutrophilic leukocytosis, elevated protein normal glucose Gram stain negative for organisms follow-up rest of studies Recommendation Mental status stable although inconsistently follows morning We will DC IV acyclovir with herpes PCR negative Dilantin 12.2 based on albumin at 2.2 Dilantin 6.6 Follow-up EEG Discussed with critical care Extubation as feasible Follow exam
[2018-04-03] MEDS: Senna/Docusate Sodium 8.6/50 MG Tablet PO SCH ×2 (08:39→21:07)
[2018-04-03] MEDS: Metoprolol Tartrate 25 MG Tablet PO SCH ×3 (08:39→16:59)
[2018-04-03] MEDS: Folic Acid 1 MG Tablet PO SCH (08:39)
[2018-04-03] MEDS: hydrALAZINE 50 MG Tablet PO SCH ×3 (08:39→16:59)
--- NOTE | 2018-04-03 09:00 | P.PNCC ---
Subjective Subjective Remarks/Hospital Course: Disheveled 78-year-old woman found down by EMS who state a large number of pills were next to her. Neighbors last saw her the night before. Required intubation and mechanical ventilation because of an inability to protect her airway. Left side is flaccid and her eyes are deviated to the left side, with intermittent horizontal nystagmus. CAT scan of the head without acute injury. The remainder of the traumagram is negative. I have met her on her arrival to the [facility]. 04/01: Fever to 102.5 last night. Lumbar puncture performed earlier this morning and fluid sent for studies. Broaden ABX coverage. On Keppra and Cerebyx now. Family has made DNR. Patient has been deteriorating for several years. CT of the head was normal and MRI last night did not provide any additional information. We will pursue aggressively an infectious etiology at this time. 04/02: T-max 103.1. Currently 99.0. Lumbar puncture form as below. See documentation. Continues on acyclovir, ceftriaxone and vancomycin. Tube feeds will be initiated today. Currently off all sedation and moving non- purposefully in the bed Subjective 04/03: Objective Vital Signs / I&O: Vital Signs 04/02/18 09:51 04/02/18 10:00 04/02/18 11:58 Temperature Pulse Rate 81 81 Respiratory Rate 16 21 Blood Pressure Pulse Oximetry 100 96 04/02/18 12:00 04/02/18 14:00 04/02/18 16:00 Temperature 98.6 F 98.7 F Pulse Rate 82 90 79 Respiratory Rate 27 H 17 Blood Pressure 126/72 110/62 Pulse Oximetry 100 100 04/02/18 17:31 04/02/18 18:00 04/02/18 18:23 Temperature Pulse Rate 87 80 Respiratory Rate 21 17 Blood Pressure Pulse Oximetry 100 04/02/18 20:00 04/02/18 20:10 04/02/18 22:00 Temperature 98.6 F Pulse Rate 72 71 76 Respiratory Rate 17 20 Blood Pressure 122/59 L Pulse Oximetry 100 04/02/18 23:38 04/03/18 00:00 04/03/18 02:00 Temperature 98.6 F Pulse Rate 77 76 Respiratory Rate 16 18 Blood Pressure 112/57 L Pulse Oximetry 100 100 04/03/18 04:00 04/03/18 04:41 04/03/18 06:00 Temperature 98.7 F Pulse Rate 70 73 68 Respiratory Rate 17 16 Blood Pressure 117/61 Pulse Oximetry 100 04/03/18 07:46 04/03/18 08:00 Temperature Pulse Rate 83 73 Respiratory Rate 19 Blood Pressure Pulse Oximetry 100 Intake & Output 04/02/18 04/03/18 04/03/18 18:59 06:59 18:59 Intake Total 2347.5 / 2347.5 1991 Output Total 350 / 350 Balance 1996. / 1991 Weight 71.5 kg Intake: IV 1982. / 1982. 1321 / 1321 Neosynephrine Inj 40 MG In NS 50 / 50 Inj 496 ML @ 40 MCG/MIN 30 mls/ hr IV.CONT TITRATE PRN Rx#: [id number] NS Inj 1,000 ML @ 84 mls/hr IV. 1000 / 1000 1000 / 1000 CONT .[id number] [facility] Rx#:[id number] Zovirax Inj 650 MG In NS Inj 113 / 113 113 / 113 100 ML @ 113 mls/hr IV.SIG Q12H [facility] Rx#:[id number] Cerebyx Inj 200 MGPE In NS Inj 108 / 108 108 / 108 50 ML @ 216 mls/hr IV.SIG Q8HR [facility] Rx#:[id number] Vancomycin Inj 1,250 MG In NS 512.5 / 512.5 Inj 250 ML @ 250 mls/hr IV.SIG Q24H [facility] Rx#:[id number] Rocephin Inj 2,000 MG In NS Inj 100 / 100 100 ML @ 200 mls/hr IV.SIG Q24H [facility] Rx#:[id number] Keppra 1000 mg/100 mL Premix 100 / 100 100 / 100 100 ML @ 400 mls/hr IV.SIG Q12H [facility] Rx#:[id number] Oral 0 / 0 Tube Feeding 244 / 244 551 / 551 Water Bolus Amount 120 / 120 120 / 120 Output: Urine Amount (Catheter) 350 / 350 Indwelling Urethral Catheter 350 / 350 Other: Date of Last Bowel Movement 04/01/18 04/01/18 04/01/18 Result Diagrams: 04/03/18 04:15 04/03/18 04:15 Objective Remarks: GENERAL: Disheveled 78-year-old woman, intubated. SKIN: Scattered chronic appearing ecchymosis on the both upper extremities along with left hip. HEAD: Atraumatic. Normocephalic. EYES: Pupils equal and round. No scleral icterus. No injection or drainage. ENT: No nasal bleeding or discharge. Mucous membranes pink and moist. Oral tracheal intubation in place. NECK: Cervical collar in place. No obvious abnormalities. CARDIOVASCULAR: Regular rate and rhythm. Normal S1-S2. No murmur appreciated. No JVD. RESPIRATORY: Mechanically ventilated. Coarse breath sounds with few mobile secretions. GASTROINTESTINAL: Mild abdominal distention, no guarding, bowel sounds are hypoactive MUSCULOSKELETAL: No obvious deformities. No edema. No obvious fractures. NEUROLOGICAL: Pupils 2 mm. Leftward deviation. Left arm and leg are moving spontaneously. Moves left hand towards ET tube with stimulation/sternal rub. Withdraws to right arm noxious stimulation and right leg noxious stimulation. Breathes over ventilator rate. Assessment and Plan - Assessment and Plan Plan: Neuro/Psych Acute encephalopathy -toxic metabolic versus EtOH withdrawal versus rule out PRES Glaucoma -nephew to bring her medications -MRI/MRA revealed bilateral posterior temporal/cerebellar and thalamic and posterior cerebellar abnormal signal. Decreased flow in the anterior right M2 segment. -Toxicology screen negative for acute findings -Minimize sedation -EEG - severely suppressed background may be consistent with encephalopathic process. No epileptiform features. Clinical correlation. -Neurology consultation with Dr. 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 Level was 2.310/10. Recheck 04/03 added -Lumbar puncture. Glucose was 43 but baseline glucose was 61. Gram stain negative. Many WBCs. See infectious disease Morphine sulfate 2 mg IV every 4 hours as needed pain Minimize sedation Respiratory Acute respiratory failure 2.8 x 2.1 x 0.8 cm mediastinal mass -[facility] 16/550// Ventilator bundle Albuterol/ipratropium aerosols every 6 hours with albuterol aerosols every 2 hours as needed dyspnea Spontaneous breathing trials when clinically indicated Follow-up chest x-ray in a.m. 04/03 Will likely need needle biopsy of mediastinal mass if able Cardiovascular Severe pulmonary hypertension Essential hypertension Cardiogram revealed EF 60-60%. Mild TR. Pulmonary arterial pressure 62.5 mmHg -Tolerate blood pressure 130 - 180 Currently on hydralazine 50 mg 3 times daily metoprolol tartrate 25 mg 3 times daily Renal/ Acute kidney injury Monitor urine output Accurate I's and O's Check BMP in a.m. 04/03 No indication for Henson catheter GI Elevated AST Hypoalbuminemia Hepatic steatosis Left liver cyst -Start vital 1.5 goal 45 cc an hour -Lansoprazole for GI prophylaxis -Docusate serum/senna 1 tablet twice daily for bowel regimen -P.o. meds down tube is acceptable Hematology Normocytic anemia Thrombocytopenia History of skin cancer -Serial hemoglobin determination and follow trends. -No indication for transfusion of blood products at this time ID -Culture for fevers as indicated -No evidence of infection at this time -Culture CSF -many WBCs no organisms identified- -Blood cultures x2, sputum and UA and influenza 04/02 no growth to date Currently on vancomycin, ceftriaxone 04/03 discontinued acyclovir as HSV negative ENDO Elevated TSH TSH was 7.1. Normal T4. Recheck 6-8 weeks Sliding scale insulin to maintain euglycemia with aspart insulin every 6 hours MSK: Osteopenia Scoliosis retrolisthesis C4/5 Anterolisthesis C7/T1 PT evaluate and treat FEN Acute hypophosphatemia Currently on normal saline at 84 cc an hour. Discontinued today's tube feeds at goal Replace potassium per ICU electrolyte protocol. Prophylaxis -Chemical DVT prophylaxis with heparin subcu -Lansoprazole for GI ulcer prophylaxis Lines -Peripherals Level 3 follow-up discussed with [facility] at [facility] as before 10 AM. Care plan discussed and all questions answered.
[2018-04-03] MEDS: Carboxymethylcellulose 0.5% Opth Drops 15 ML Bottle EACH EYE SCH ×2 (09:15→21:07)
[2018-04-03] MEDS: Chlorhexidine 0.12% Oral Kit 15 ML UDC OROPHARYNG SCH ×2 (09:15→21:06)
[2018-04-03] MEDS ORDERED: Magnesium Sulfate Inj 2 GM in Sodium Chlor 0.9% Inj 96 ML IV.SIG ONE (10:00)
[2018-04-03] MEDS: Vancomycin Inj 1,250 MG in Sodium Chlor 0.9% Inj 250 ML IV.SIG SCH (10:22)
[2018-04-03] MEDS ORDERED: Potassium Phosphate Inj 30 MMOL in Sodium Chlor 0.9% Inj 250 ML IV.SIG ONE (11:00)
[2018-04-03] MEDS: Sod Chloride 0.9% Inj 1,000 ML IV.CONT SCH ×3 (11:10→22:49)
[2018-04-03] MEDS: Heparin - SQ 10,000 UNITS/ML Vial SQ SCH ×2 (11:52→23:00)
--- NOTE | 2018-04-03 18:21 | MG ---
cc: Shakila Garcia MD EEG NUMBER: [id number] REFERRING: James Dominique MD CLINICAL HISTORY: 78 years old, room 1303. With photic stimulation, no sedation, awake, drowsy, asleep study. CT is negative. Withdrew all 4 extremities and following commands. At the EEG showed suppression of background. Found unresponsive, a lot of pills next to her with blood on the floor. MEDICATIONS: On Cerebyx, Keppra and others. DESCRIPTION OF RECORD. EEG still shows some slowing of background with what looks like a theta frequency, 5 Hz at times. EKG cannot be interpreted. It is a very low amplitude. There is not a lot of artifact at this point in time, but still some slowing. There is some eye movement artifact. No epileptiform features. Photic stimulation, there is a posterior driving response. IMPRESSION: Mild slowing of background still consistent with an encephalopathic process, but does look improved from previous electroencephalogram. Clinical correlation. Shakila Garcia MD DF/ct , 05:11 PM , 05:15 PM
[2018-04-03 19:52] LABS: N Meningitidis B/EColi K1 Not Detected (Not Detected)
[2018-04-04] MEDS: Morphine Sulfate Inj 2 MG/ML Vial IV.PUSH PRN ×2 (02:10→17:09)
[2018-04-04] MEDS: Chlorhexidine Gluconate 2% 1 Pack (2 Cloths) TOPICAL SCH (03:06)
[2018-04-04] MEDS: levETIRAcetam 1000mg/100mL Inj 100 ML IV.SIG SCH ×2 (03:06→15:34)
[2018-04-04] MEDS: Oral Hygiene Kit OROPHARYNG SCH ×4 (03:07→23:53)
[2018-04-04 03:33] LABS: Baso % (Auto) 0.4 % (0.0-2.0); Eos # (Auto) 0.2 th/mm3 (0.0-0.4); Eos % (Auto) 3.4 % (0.0-4.0); Hematocrit 29.5 % (35.0-46.0); Lymph # (Auto) 0.5 th/mm3 (1.0-4.8); Lymph % (Auto) 10.3 % (9.0-44.0); Mean Corpuscular HGB Conc 33.8 % (32.0-36.0); Mean Corpuscular Hemoglobin 29.9 pg (27.0-34.0); Mean Corpuscular Volume 88.3 fL (80.0-100.0); Mean Platelet Volume 7.7 fL (7.0-11.0); Mono # (Auto) 0.8 th/mm3 (0.0-0.9); Mono % (Auto) 15.5 % (0.0-8.0); Neut # (Auto) 3.7 th/mm3 (1.8-7.7); Neut % (Auto) 70.4 % (16.0-70.0); Platelet Count 118 th/mm3 (150-450); Red Blood Count 3.34 mil/mm3 (4.00-5.30); Red Cell Distribution Width 14.5 % (11.6-17.2); White Blood Count 5.2 th/mm3 (4.0-11.0)
--- NOTE | 2018-04-04 04:16 | XR ---
EXAM DATE: 04/04/2018 6:00 AM EDT AGE/SEX: 78 years / Female INDICATIONS: Respiratory failure. CLINICAL DATA: This is the patient's subsequent encounter. Patient reports that signs and symptoms h ave been present for 4 - 6 days and indicates a pain score of Nonresponsive. MEDICAL/SURGICAL HISTORY: Chronic obstructive pulmonary disease. Hypertension. None. COMPARISON: [facility], CHEST 1V SINGLE AP, 04/03/2018. . FINDINGS: Endotracheal tube in good position. NG enters stomach. Right central line in superior vena cava. Mild basilar airspace disease. Small effusions. CONCLUSION: Support apparatus unchanged. Persistent mild basilar airspace disease. Small effusions. Electronically signed by: Humble Jones MD 04/04/2018 4:15 AM EDT
[2018-04-04] MEDS: Fosphenytoin Inj 200 MGPE in Sodium Chlor 0.9% Inj 50 ML IV.SIG SCH ×3 (05:25→21:21)
[2018-04-04] MEDS: Insulin NovoLOG Aspart Correctional Sugar Inj SQ SCH ×4 (05:25→23:52)
[2018-04-04] MEDS: Senna/Docusate Sodium 8.6/50 MG Tablet PO SCH ×2 (08:12→20:07)
[2018-04-04] MEDS: Folic Acid 1 MG Tablet PO SCH (08:12)
[2018-04-04] MEDS: Metoprolol Tartrate 25 MG Tablet PO SCH ×3 (08:12→17:09)
[2018-04-04] MEDS: Chlorhexidine 0.12% Oral Kit 15 ML UDC OROPHARYNG SCH ×2 (08:12→20:07)
[2018-04-04] MEDS: hydrALAZINE 50 MG Tablet PO SCH ×3 (08:12→17:08)
[2018-04-04] MEDS: Carboxymethylcellulose 0.5% Opth Drops 15 ML Bottle EACH EYE SCH ×2 (08:29→20:08)
[2018-04-04] MEDS ORDERED: Pharmacy Ordered Lab Info OTHER ONE (09:45)
[2018-04-04] MEDS: Sod Chloride 0.9% Inj 1,000 ML IV.CONT SCH (10:45)
[2018-04-04] MEDS: Vancomycin Inj 1,250 MG in Sodium Chlor 0.9% Inj 250 ML IV.SIG SCH (10:59)
[2018-04-04 11:08] LABS: Alanine Aminotransferase 42 U/L (10-53); Albumin 2.2 g/dL (3.4-5.0); Alkaline Phosphatase 71 U/L (45-117); Anion Gap 7 meq/L (5-15); Aspartate Aminotransferase 49 U/L (15-37); Blood Urea Nitrogen 11 mg/dL (7-18); Calcium 8.1 mg/dL (8.5-10.1); Carbon Dioxide 23.8 meq/L (21.0-32.0); Chloride 115 meq/L (98-107); Glomerular Filtration Rate Greater Than 89 mL/min (>89); Glucose,Random 159 mg/dL (74-106); Magnesium 2.2 mg/dL (1.5-2.5); Phenytoin (Dilantin) 9.4 mcg/mL (10.0-20.0); Phosphorus 2.5 mg/dL (2.5-4.9); Potassium 4.1 meq/L (3.5-5.1); Sodium 146 meq/L (136-145); Total Protein 5.3 g/dL (6.4-8.2); Vancomycin,Trough 7.4 mcg/mL (5.0-10.0)
[2018-04-04] MEDS: Heparin - SQ 10,000 UNITS/ML Vial SQ SCH ×2 (11:58→23:52)
[2018-04-04] MEDS: Acetaminophen 325 MG Tablet PO PRN (20:07)
[2018-04-04] MEDS: ALPRAZolam 0.25 MG Tablet PO SCH (21:22)
--- NOTE | 2018-04-04 22:13 | P.PNCC ---
Subjective Subjective Remarks/Hospital Course: Disheveled 78-year-old woman found down by EMS who state a large number of pills were next to her. Neighbors last saw her the night before. Required intubation and mechanical ventilation because of an inability to protect her airway. Left side is flaccid and her eyes are deviated to the left side, with intermittent horizontal nystagmus. CAT scan of the head without acute injury. The remainder of the traumagram is negative. I have met her on her arrival to the [facility]. 04/01: Fever to 102.5 last night. Lumbar puncture performed earlier this morning and fluid sent for studies. Broaden ABX coverage. On Keppra and Cerebyx now. Family has made DNR. Patient has been deteriorating for several years. CT of the head was normal and MRI last night did not provide any additional information. We will pursue aggressively an infectious etiology at this time. 04/02: T-max 103.1. Currently 99.0. Lumbar puncture form as below. See documentation. Continues on acyclovir, ceftriaxone and vancomycin. Tube feeds will be initiated today. Currently off all sedation and moving non- purposefully in the bed Subjective 04/04: no changes. working towards SBTs and extubation. Objective Vital Signs / I&O: Vital Signs 04/03/18 22:28 04/03/18 23:00 04/03/18 23:28 Temperature Pulse Rate 66 69 82 Respiratory Rate 16 5 L 20 Blood Pressure 113/58 L 122/61 Pulse Oximetry 100 100 100 04/04/18 00:00 04/04/18 00:28 04/04/18 01:00 Temperature 37.3 C Pulse Rate 68 86 88 Respiratory Rate 12 21 21 Blood Pressure 122/61 127/66 Pulse Oximetry 100 100 99 04/04/18 01:28 04/04/18 02:00 04/04/18 02:28 Temperature Pulse Rate 85 60 87 Respiratory Rate 20 19 21 Blood Pressure 152/69 H 150/68 H Pulse Oximetry 99 99 99 04/04/18 03:00 04/04/18 03:12 04/04/18 03:15 Temperature Pulse Rate 83 77 Respiratory Rate 23 16 16 Blood Pressure Pulse Oximetry 99 100 04/04/18 03:28 04/04/18 04:00 04/04/18 04:10 Temperature 37.2 C Pulse Rate 75 71 73 Respiratory Rate 16 16 16 Blood Pressure 116/58 L 114/55 L 114/55 L Pulse Oximetry 100 100 100 04/04/18 04:28 04/04/18 05:00 04/04/18 05:28 Temperature Pulse Rate 59 L 82 80 Respiratory Rate 17 20 18 Blood Pressure 118/57 L 129/60 Pulse Oximetry 100 100 100 04/04/18 06:00 04/04/18 06:28 04/04/18 07:00 Temperature Pulse Rate 79 58 L 60 Respiratory Rate 17 16 17 Blood Pressure 110/54 L Pulse Oximetry 100 100 100 04/04/18 07:28 04/04/18 08:00 04/04/18 08:28 Temperature 37.2 C Pulse Rate 81 85 84 Respiratory Rate 17 20 19 Blood Pressure 116/55 L 116/55 L 119/57 L Pulse Oximetry 100 98 100 04/04/18 09:00 04/04/18 09:28 04/04/18 09:55 Temperature Pulse Rate 55 L 67 82 Respiratory Rate 16 19 21 Blood Pressure 102/58 L Pulse Oximetry 96 100 95 04/04/18 10:00 04/04/18 10:28 04/04/18 11:00 Temperature Pulse Rate 80 96 H 92 H Respiratory Rate 22 31 H 28 H Blood Pressure 114/71 Pulse Oximetry 77 L 98 95 04/04/18 11:28 04/04/18 12:00 04/04/18 12:28 Temperature 37.2 C Pulse Rate 90 92 H 82 Respiratory Rate 25 H 29 H 29 H Blood Pressure 122/59 L 120/60 Pulse Oximetry 98 93 L 93 L 04/04/18 13:00 04/04/18 13:28 04/04/18 14:00 Temperature Pulse Rate 70 77 69 Respiratory Rate 25 H 26 H 25 H Blood Pressure 125/59 L Pulse Oximetry 95 96 99 04/04/18 14:28 04/04/18 15:00 04/04/18 15:28 Temperature Pulse Rate 72 77 81 Respiratory Rate 27 H 33 H 33 H Blood Pressure 125/64 157/72 H Pulse Oximetry 98 94 L 93 L 04/04/18 16:00 04/04/18 16:28 04/04/18 18:00 Temperature 37.1 C Pulse Rate 98 H 107 H 82 Respiratory Rate 41 H 38 H Blood Pressure 157/72 H 176/77 H Pulse Oximetry 90 L 93 L 04/04/18 20:00 04/04/18 20:13 Temperature 38.8 C H Pulse Rate 84 81 Respiratory Rate 24 24 Blood Pressure 166/79 H Pulse Oximetry 92 L 94 L Intake & Output 04/04/18 04/04/18 04/05/18 06:59 18:59 06:59 Intake Total 1198 / 1198 1067.5 / 1067.5 54 / 54 Output Total 1000 / 1000 Balance 198 / 198 1067.5 / 1067.5 54 / 54 Weight 71.4 kg Intake: IV 586 / 586 516.5 / 516.5 54 / 54 NS Inj 1,000 ML @ 84 mls/hr IV. 378 / 378 CONT .[id number] [facility] Rx#:[id number] Cerebyx Inj 200 MGPE In NS Inj 108 / 108 54 / 54 54 / 54 50 ML @ 216 mls/hr IV.SIG Q8HR [facility] Rx#:[id number] Vancomycin Inj 1,250 MG In NS 262.5 / 262.5 Inj 250 ML @ 250 mls/hr IV.SIG Q24H [facility] Rx#:[id number] Rocephin Inj 2,000 MG In NS Inj 100 / 100 100 ML @ 200 mls/hr IV.SIG Q24H [facility] Rx#:[id number] Keppra 1000 mg/100 mL Premix 100 / 100 100 / 100 100 ML @ 400 mls/hr IV.SIG Q12H [facility] Rx#:[id number] Tube Feeding 492 / 492 501 / 501 Tube Irrigant 50 / 50 Water Bolus Amount 120 / 120 Output: Urine Amount (Catheter) 1000 / 1000 Straight 1000 / 1000 Other: Date of Last Bowel Movement 04/01/18 04/01/18 04/01/18 # Bowel Movements 0 Result Diagrams: 04/04/18 03:08 04/04/18 09:55 Objective Remarks: GENERAL: Disheveled 78-year-old woman, intubated. SKIN: Scattered chronic appearing ecchymosis on the both upper extremities along with left hip. HEAD: Atraumatic. Normocephalic. EYES: Pupils equal and round. No scleral icterus. No injection or drainage. ENT: No nasal bleeding or discharge. Mucous membranes pink and moist. Oral tracheal intubation in place. NECK: Cervical collar in place. No obvious abnormalities. CARDIOVASCULAR: Regular rate and rhythm. Normal S1-S2. No murmur appreciated. No JVD. RESPIRATORY: Mechanically ventilated. Coarse breath sounds with few mobile secretions. GASTROINTESTINAL: Mild abdominal distention, no guarding, bowel sounds are hypoactive MUSCULOSKELETAL: No obvious deformities. No edema. No obvious fractures. NEUROLOGICAL: Pupils 2 mm. Leftward deviation. Left arm and leg are moving spontaneously. Moves left hand towards ET tube with stimulation/sternal rub. Withdraws to right arm noxious stimulation and right leg noxious stimulation. Breathes over ventilator rate. Assessment and Plan - Assessment and Plan Plan: Neuro/Psych Acute encephalopathy -toxic metabolic versus EtOH withdrawal versus rule out PRES Glaucoma -nephew to bring her medications -MRI/MRA revealed bilateral posterior temporal/cerebellar and thalamic and posterior cerebellar abnormal signal. Decreased flow in the anterior right M2 segment. -Toxicology screen negative for acute findings -Minimize sedation -EEG - severely suppressed background may be consistent with encephalopathic process. No epileptiform features. Clinical correlation. -Neurology consultation with Dr. 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 Level was 2.310/10. Recheck 04/03 added -Lumbar puncture. Glucose was 43 but baseline glucose was 61. Gram stain negative. Many WBCs. See infectious disease Morphine sulfate 2 mg IV every 4 hours as needed pain Minimize sedation Respiratory Acute respiratory failure 2.8 x 2.1 x 0.8 cm mediastinal mass -[facility] 16/550/06/27/49 Ventilator bundle Albuterol/ipratropium aerosols every 6 hours with albuterol aerosols every 2 hours as needed dyspnea Spontaneous breathing trials when clinically indicated Follow-up chest x-ray in a.m. 04/03 Will likely need needle biopsy of mediastinal mass if able Cardiovascular Severe pulmonary hypertension Essential hypertension Cardiogram revealed EF 60-60%. Mild TR. Pulmonary arterial pressure 62.5 mmHg -Tolerate blood pressure 130 - 180 Currently on hydralazine 50 mg 3 times daily metoprolol tartrate 25 mg 3 times daily Renal/ Acute kidney injury Monitor urine output Accurate I's and O's Check BMP in a.m. 04/03 No indication for Henson catheter GI Elevated AST Hypoalbuminemia Hepatic steatosis Left liver cyst -Start vital 1.5 goal 45 cc an hour -Lansoprazole for GI prophylaxis -Docusate serum/senna 1 tablet twice daily for bowel regimen -P.o. meds down tube is acceptable Hematology Normocytic anemia Thrombocytopenia History of skin cancer -Serial hemoglobin determination and follow trends. -No indication for transfusion of blood products at this time ID -Culture for fevers as indicated -No evidence of infection at this time -Culture CSF -many WBCs no organisms identified- -Blood cultures x2, sputum and UA and influenza 04/02 no growth to date Currently on vancomycin, ceftriaxone 04/03 discontinued acyclovir as HSV negative ENDO Elevated TSH TSH was 7.1. Normal T4. Recheck 6-8 weeks Sliding scale insulin to maintain euglycemia with aspart insulin every 6 hours MSK: Osteopenia Scoliosis retrolisthesis C4/5 Anterolisthesis C7/T1 PT evaluate and treat FEN Acute hypophosphatemia Currently on normal saline at 84 cc an hour. Discontinued today's tube feeds at goal Replace potassium per ICU electrolyte protocol. Prophylaxis -Chemical DVT prophylaxis with heparin subcu -Lansoprazole for GI ulcer prophylaxis Lines -Peripherals
[2018-04-05] MEDS: Morphine Sulfate Inj 2 MG/ML Vial IV.PUSH PRN ×2 (01:50→11:31)
[2018-04-05] MEDS: levETIRAcetam 1000mg/100mL Inj 100 ML IV.SIG SCH ×2 (03:13→17:59)
[2018-04-05] MEDS: Chlorhexidine Gluconate 2% 1 Pack (2 Cloths) TOPICAL SCH (03:13)
[2018-04-05] MEDS: Oral Hygiene Kit OROPHARYNG SCH ×3 (03:14→17:55)
[2018-04-05 03:36] LABS: Hematocrit 28.3 % (35.0-46.0); Hemoglobin 9.7 gm/dL (11.6-15.3); Mean Corpuscular HGB Conc 34.3 % (32.0-36.0); Mean Corpuscular Hemoglobin 30.7 pg (27.0-34.0); Mean Corpuscular Volume 89.5 fL (80.0-100.0); Mean Platelet Volume 7.8 fL (7.0-11.0); Platelet Count 137 th/mm3 (150-450); Red Blood Count 3.16 mil/mm3 (4.00-5.30); Red Cell Distribution Width 14.5 % (11.6-17.2); White Blood Count 6.3 th/mm3 (4.0-11.0)
[2018-04-05 04:06] LABS: Anion Gap 6 meq/L (5-15); Blood Urea Nitrogen 12 mg/dL (7-18); Calcium 7.7 mg/dL (8.5-10.1); Carbon Dioxide 26.7 meq/L (21.0-32.0); Chloride 114 meq/L (98-107); Glomerular Filtration Rate Greater Than 89 mL/min (>89); Glucose,Random 115 mg/dL (74-106); Magnesium 2.1 mg/dL (1.5-2.5); Phenytoin (Dilantin) 8.6 mcg/mL (10.0-20.0); Phosphorus 2.5 mg/dL (2.5-4.9); Potassium 3.8 meq/L (3.5-5.1); Sodium 147 meq/L (136-145)
[2018-04-05] MEDS: Fosphenytoin Inj 200 MGPE in Sodium Chlor 0.9% Inj 50 ML IV.SIG SCH ×3 (05:28→21:27)
[2018-04-05] MEDS: Insulin NovoLOG Aspart Correctional Sugar Inj SQ SCH ×2 (05:28→13:42)
[2018-04-05] MEDS: Chlorhexidine 0.12% Oral Kit 15 ML UDC OROPHARYNG SCH ×2 (09:15→21:28)
[2018-04-05] MEDS: Primidone 50 MG Tablet PO SCH ×3 (09:16→18:00)
[2018-04-05] MEDS: Folic Acid 1 MG Tablet PO SCH (09:16)
[2018-04-05] MEDS: hydrALAZINE 50 MG Tablet PO SCH ×3 (09:16→18:00)
[2018-04-05] MEDS: ALPRAZolam 0.25 MG Tablet PO SCH ×2 (09:16→21:26)
[2018-04-05] MEDS: Metoprolol Tartrate 25 MG Tablet PO SCH ×3 (09:16→18:00)
[2018-04-05] MEDS: Senna/Docusate Sodium 8.6/50 MG Tablet PO SCH ×2 (09:16→21:26)
[2018-04-05] MEDS: dilTIAZem CD 120 MG Capsule PO SCH (09:16)
[2018-04-05] MEDS: Heparin - SQ 10,000 UNITS/ML Vial SQ SCH (11:31)
[2018-04-05] MEDS: Vancomycin Inj 1,250 MG in Sodium Chlor 0.9% Inj 250 ML IV.SIG SCH (13:00)
[2018-04-05] MEDS: Carboxymethylcellulose 0.5% Opth Drops 15 ML Bottle EACH EYE SCH ×2 (13:00→21:29)
--- NOTE | 2018-04-05 13:58 | P.PNCC ---
Subjective Subjective Remarks/Hospital Course: Disheveled 78-year-old woman found down by EMS who state a large number of pills were next to her. Neighbors last saw her the night before. Required intubation and mechanical ventilation because of an inability to protect her airway. Left side is flaccid and her eyes are deviated to the left side, with intermittent horizontal nystagmus. CAT scan of the head without acute injury. The remainder of the traumagram is negative. I have met her on her arrival to the [facility]. 04/01: Fever to 102.5 last night. Lumbar puncture performed earlier this morning and fluid sent for studies. Broaden ABX coverage. On Keppra and Cerebyx now. Family has made DNR. Patient has been deteriorating for several years. CT of the head was normal and MRI last night did not provide any additional information. We will pursue aggressively an infectious etiology at this time. 04/02: T-max 103.1. Currently 99.0. Lumbar puncture form as below. See documentation. Continues on acyclovir, ceftriaxone and vancomycin. Tube feeds will be initiated today. Currently off all sedation and moving non- purposefully in the bed Subjective 04/04: no changes. working towards SBTs and extubation. 04/05: failing cpap again for weakness. also appears more volume overloaded today. Objective Vital Signs / I&O: Vital Signs 04/04/18 14:00 04/04/18 14:28 04/04/18 15:00 Temperature Pulse Rate 69 72 77 Respiratory Rate 25 H 27 H 33 H Blood Pressure 125/64 Pulse Oximetry 99 98 94 L 04/04/18 15:28 04/04/18 16:00 04/04/18 16:28 Temperature 37.1 C Pulse Rate 81 98 H 107 H Respiratory Rate 33 H 41 H 38 H Blood Pressure 157/72 H 157/72 H 176/77 H Pulse Oximetry 93 L 90 L 93 L 04/04/18 18:00 04/04/18 20:00 04/04/18 20:13 Temperature 38.8 C H Pulse Rate 82 84 81 Respiratory Rate 24 24 Blood Pressure 166/79 H Pulse Oximetry 92 L 94 L 04/04/18 22:00 04/05/18 00:00 04/05/18 02:00 Temperature 37.6 C Pulse Rate 78 86 75 Respiratory Rate 21 Blood Pressure 108/55 L Pulse Oximetry 94 L 04/05/18 03:49 04/05/18 03:54 04/05/18 04:00 Temperature 37.0 C Pulse Rate 79 70 Respiratory Rate 18 18 16 Blood Pressure 111/66 Pulse Oximetry 100 100 04/05/18 06:00 04/05/18 07:52 04/05/18 08:00 Temperature 37.0 C Pulse Rate 80 82 70 Respiratory Rate 33 H 16 Blood Pressure 111/66 Pulse Oximetry 98 100 04/05/18 10:00 04/05/18 11:45 04/05/18 12:00 Temperature 36.6 C Pulse Rate 66 72 Respiratory Rate 22 Blood Pressure 125/73 Pulse Oximetry 98 97 Intake & Output 04/04/18 04/05/18 04/05/18 18:59 06:59 18:59 Intake Total 1067.5 / 1067.5 799 / 799 Output Total 400 / 400 Balance 1067.5 / 1067.5 399 / 399 Weight 71.5 kg Intake: IV 516.5 / 516.5 208 / 208 Cerebyx Inj 200 MGPE In NS Inj 54 / 54 108 / 108 50 ML @ 216 mls/hr IV.SIG Q8HR [facility] Rx#:[id number] Vancomycin Inj 1,250 MG In NS 262.5 / 262.5 Inj 250 ML @ 250 mls/hr IV.SIG Q24H [facility] Rx#:[id number] Rocephin Inj 2,000 MG In NS Inj 100 / 100 100 ML @ 200 mls/hr IV.SIG Q24H [facility] Rx#:[id number] Keppra 1000 mg/100 mL Premix 100 / 100 100 / 100 100 ML @ 400 mls/hr IV.SIG Q12H [facility] Rx#:[id number] Tube Feeding 501 / 501 471 / 471 Tube Irrigant 50 / 50 Water Bolus Amount 120 / 120 Output: Urine Amount (Catheter) 400 / 400 Straight 400 / 400 Other: Date of Last Bowel Movement 04/01/18 04/01/18 04/01/18 # Bowel Movements 0 Result Diagrams: 04/05/18 03:15 04/05/18 03:15 Objective Remarks: GENERAL: Disheveled 78-year-old woman, intubated. SKIN: Scattered chronic appearing ecchymosis on the both upper extremities along with left hip. HEAD: Atraumatic. Normocephalic. EYES: Pupils equal and round. No scleral icterus. No injection or drainage. ENT: No nasal bleeding or discharge. Mucous membranes pink and moist. Oral tracheal intubation in place. NECK: Cervical collar in place. No obvious abnormalities. CARDIOVASCULAR: Regular rate and rhythm. Normal S1-S2. No murmur appreciated. No JVD. RESPIRATORY: Mechanically ventilated. Coarse breath sounds with few mobile secretions. GASTROINTESTINAL: Mild abdominal distention, no guarding, bowel sounds are hypoactive MUSCULOSKELETAL: No obvious deformities. No edema. No obvious fractures. NEUROLOGICAL: Pupils 2 mm. Leftward deviation. Left arm and leg are moving spontaneously. Moves left hand towards ET tube with stimulation/sternal rub. Withdraws to right arm noxious stimulation and right leg noxious stimulation. Breathes over ventilator rate. Assessment and Plan - Assessment and Plan Plan: Neuro/Psych Acute encephalopathy -toxic metabolic versus EtOH withdrawal versus rule out PRES Glaucoma -nephew to bring her medications -MRI/MRA revealed bilateral posterior temporal/cerebellar and thalamic and posterior cerebellar abnormal signal. Decreased flow in the anterior right M2 segment. -Toxicology screen negative for acute findings -Minimize sedation -EEG - severely suppressed background may be consistent with encephalopathic process. No epileptiform features. Clinical correlation. -Neurology consultation with Dr. 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 Level was 2.310/10. Recheck 04/03 added -Lumbar puncture. Glucose was 43 but baseline glucose was 61. Gram stain negative. Many WBCs. See infectious disease Morphine sulfate 2 mg IV every 4 hours as needed pain Minimize sedation Respiratory Acute respiratory failure 2.8 x 2.1 x 0.8 cm mediastinal mass -PRVC Ventilator bundle Albuterol/ipratropium aerosols every 6 hours with albuterol aerosols every 2 hours as needed dyspnea Spontaneous breathing trials when clinically indicated Will likely need needle biopsy of mediastinal mass if able Cardiovascular Severe pulmonary hypertension Essential hypertensionn Cardiogram revealed EF 60-60%. Mild TR. Pulmonary arterial pressure 62.5 mmHg -Tolerate blood pressure 130 - 180 Currently on hydralazine 50 mg 3 times daily metoprolol tartrate 25 mg 3 times daily Renal/ Acute kidney injury Monitor urine output Accurate I's and O's Check BMP in a.m. 04/03 No indication for Henson catheter small dose lasix today. GI Elevated AST Hypoalbuminemia Hepatic steatosis Left liver cyst -Start vital 1.5 goal 45 cc an hour -Lansoprazole for GI prophylaxis -Docusate serum/senna 1 tablet twice daily for bowel regimen -P.o. meds down tube is acceptable Hematology Normocytic anemia Thrombocytopenia History of skin cancer -Serial hemoglobin determination and follow trends. -No indication for transfusion of blood products at this time ID -Culture for fevers as indicated -No evidence of infection at this time -Culture CSF -many WBCs no organisms identified- -Blood cultures x2, sputum and UA and influenza 04/02 no growth to date Currently on vancomycin, ceftriaxone 04/03 discontinued acyclovir as HSV negative ENDO Elevated TSH TSH was 7.1. Normal T4. Recheck 6-8 weeks Sliding scale insulin to maintain euglycemia with aspart insulin every 6 hours MSK: Osteopenia Scoliosis retrolisthesis C4/5 Anterolisthesis C7/T1 PT evaluate and treat FEN Acute hypophosphatemia Replace potassium per ICU electrolyte protocol. Prophylaxis -Chemical DVT prophylaxis with heparin subcu -Lansoprazole for GI ulcer prophylaxis Lines -Peripherals
[2018-04-05] MEDS: Acetaminophen 325 MG Tablet PO PRN (21:26)
[2018-04-06] MEDS: Insulin NovoLOG Aspart Correctional Sugar Inj SQ SCH ×4 (00:30→18:15)
[2018-04-06] MEDS: Oral Hygiene Kit OROPHARYNG SCH ×4 (00:31→16:21)
[2018-04-06] MEDS: Heparin - SQ 10,000 UNITS/ML Vial SQ SCH ×2 (00:31→10:29)
[2018-04-06] MEDS: levETIRAcetam 1000mg/100mL Inj 100 ML IV.SIG SCH ×2 (04:25→17:24)
[2018-04-06] MEDS ORDERED: Fosphenytoin Inj 200 MGPE in Sodium Chlor 0.9% Inj 50 ML IV.SIG SCH (06:00)
[2018-04-06] MEDS ORDERED: Vancomycin Inj 1,250 MG in Sodium Chlor 0.9% Inj 250 ML IV.SIG SCH (06:00)
--- NOTE | 2018-04-06 06:41 | P.PNNEU ---
Subjective Subjective Comments: no acute events Active Medications: Active Medications Acetaminophen (Tylenol) 650 mg PO Q6H PRN PRN Reason: PAIN 1-10 AND/OR FEVER >101F Last Admin: 04/05/18 21:26 Dose: 650 mg Al Hydroxide/Mg Hydroxide (Milk Of Magnrosa Liq) 30 ml PO Q12H PRN PRN Reason: Mild Constipation Albuterol (Duoneb Neb (Kirk)) 1 ampul NEB Q6HR NEB [facility] Last Admin: 04/06/18 03:54 Dose: 1 ampul Albuterol (Albuterol Neb (Prn)) 2.5 mg NEB Q2HR NEB PRN PRN Reason: DYSPNEA Alprazolam (Xanax) 0.25 mg PO BID [facility] Last Admin: 04/05/18 21:26 Dose: 0.25 mg Artificial Tears (Refresh Tears 0.5% Opth Drops) 1 drop EACH EYE BID [facility] Last Admin: 04/05/18 21:29 Dose: 1 drop Bisacodyl (Dulcolax Supp) 10 mg RECTAL DAILY PRN PRN Reason: SEVERE CONSITIPATION Chlorhexidine Gluconate (Peridex 0.12% Oral Kit) 15 ml OROPHARYNG BID@0800, 2000 [facility] Last Admin: 04/05/18 21:28 Dose: 15 ml Clonidine HCl (Catapres) 0.1 mg PO Q6H PRN PRN Reason: SBP > 180 Dextrose (D50w Vial) 50 ml IV.PUSH UNSCH PRN PRN Reason: PER HYPOGLYCEMIA PROTOCOL Diltiazem HCl (Cardizem Cd 24hr) 120 mg PO DAILY [facility] Last Admin: 04/05/18 09:16 Dose: 120 mg Folic Acid (Folic Acid) 1 mg PO DAILY [facility] Last Admin: 04/05/18 09:16 Dose: 1 mg Glucagon (Glucagon Inj) 1 mg OTHER PRN PRN PRN Reason: for Hypoglycemia Protocol Heparin Sodium (Porcine) (Heparin Inj) 5,000 units SQ Q12H [facility] Last Admin: 04/06/18 00:31 Dose: 5,000 units Hydralazine HCl (Apresoline) 50 mg PO TID [facility] Last Admin: 04/05/18 18:00 Dose: 50 mg Levetiracetam (Keppra 1000 Mg/100 Ml Premix) 100 mls @ 400 mls/hr IV.SIG Q12H [facility] Last Infusion: 04/06/18 04:45 Dose: Infused Ceftriaxone Sodium 2,000 mg/ (Sodium Chloride) 100 mls @ 200 mls/hr IV.SIG Q24H [facility] Last Admin: 04/05/18 09:15 Dose: 200 mls/hr Magnesium Sulfate 4 gm/ Sodium (Chloride) 100 mls @ 50 mls/hr IV.SIG UNSCH PRN PRN Reason: For Magnesium 0.9 - 1.1 mg/dL Magnesium Sulfate 2 gm/ Sodium (Chloride) 100 mls @ 50 mls/hr IV.SIG UNSCH PRN PRN Reason: For Magnesium 1.2 - 1.6 mg/dL Potassium Chloride (Kcl 40 Meq Premix Inj) 40 meq in 100 mls @ 25 mls/hr IV.SIG Q2H PRN PRN Reason: For Potassium 2.8 - 3.2 mEq/L Potassium Chloride (Kcl 20 Meq Premix Inj) 20 meq in 100 mls @ 50 mls/hr IV.SIG Q2H PRN PRN Reason: For Potassium 3.3 - 3.5 mEq/L Potassium Chloride (Kcl 40 Meq Premix Inj) 40 meq in 100 mls @ 25 mls/hr IV.SIG UNSCH PRN PRN Reason: For Potassium 3.3 - 3.5 mEq/L Potassium Chloride (Kcl 20 Meq Premix Inj) 20 meq in 100 mls @ 50 mls/hr IV.SIG Q2H PRN PRN Reason: For Potassium 2.8 - 3.2 mEq/L Potassium Phosphate 30 mmol/ (Sodium Chloride) 260 mls @ 42 mls/hr IV.SIG UNSCH PRN PRN Reason: SEE LABEL COMMENTS Last Infusion: 04/03/18 12:21 Dose: Infused Sodium Phosphate 30 mmol/ (Sodium Chloride) 260 mls @ 42 mls/hr IV.SIG UNSCH PRN PRN Reason: For Phosphorus < 2.5 mg/dL Vancomycin HCl 1,250 mg/ (Sodium Chloride) 262.5 mls @ 250 mls/hr IV.SIG Q18H [facility] Last Infusion: 04/06/18 06:20 Dose: Infused Fosphenytoin Sodium 200 mgpe/ (Sodium Chloride) 54 mls @ 216 mls/hr IV.SIG Q8HR [facility] Last Infusion: 04/06/18 06:23 Dose: Infused Insulin Aspart (Novolog Insulin Correctional Sugar Inj) 0 unit SQ Q6HR [facility]; Protocol Last Admin: 04/06/18 06:08 Dose: Not Given Lactulose (Lactulose Liq) 30 ml PO DAILY PRN PRN Reason: SEVERE CONSITIPATION Lansoprazole (Prevacid Solutab) 30 mg NG/OG DAILY [facility] Last Admin: 04/05/18 09:16 Dose: 30 mg Lorazepam (Ativan Inj) 1 mg IV.PUSH Q15M PRN PRN Reason: SEIZURES Last Admin: 04/05/18 13:40 Dose: 1 mg Magnesium Oxide (Mag-Ox) 800 mg PO UNSCH PRN PRN Reason: For Magnesium 1.2 - 1.6 mg/dL Last Admin: 04/03/18 05:36 Dose: 800 mg Metoprolol Tartrate (Lopressor) 25 mg PO TID [facility] Last Admin: 04/05/18 18:00 Dose: 25 mg Miscellaneous Information ([facility] Ordered Lab Info) 0 each OTHER ONCE ONE Stop: 04/07/18 17:46 Miscellaneous Medication () 1 each OROPHARYNG 0000,0400,1200,1600 [facility] Last Admin: 04/06/18 05:16 Dose: 1 each Morphine Sulfate (Morphine Inj) 2 mg IV.PUSH Q2H PRN PRN Reason: PAIN SCALE 6 TO 10 Last Admin: 04/05/18 11:31 Dose: 2 mg Multivitamins (Theragran) 1 tab PO DAILY [facility] Last Admin: 04/05/18 09:16 Dose: 1 tab Pharmacy Profile Note (Vancomycin Consult Pharmacy) 1 each OTHER UNSCH PRN PRN Reason: Pharmacy to dose Potassium Bicarb/Potassium Chloride (K-Lyte Cl Eff) 50 meq PO UNSCH PRN PRN Reason: For Potassium 3.3 - 3.5 mEq/L Last Admin: 04/02/18 09:23 Dose: 50 meq Potassium Phosphate (K-Phos Original) 2,000 mg PO Q4H PRN PRN Reason: Phosphorus Less Than 2.5 mg/dL Potassium Phosphate (K-Phos Original) 2,000 mg PO UNSCH PRN PRN Reason: SEE LABEL COMMENTS Pravastatin Sodium (Pravachol) 40 mg PO DAILY [facility] Last Admin: 04/05/18 09:16 Dose: 40 mg Primidone (Mysoline) 50 mg PO TID [facility] Last Admin: 04/05/18 18:00 Dose: 50 mg Senna/Docusate Sodium (Ce-Colace) 1 tab PO BID [facility] Last Admin: 04/05/18 21:26 Dose: 1 tab Sennosides (Senokot) 17.2 mg PO Q12H PRN PRN Reason: Moderate Constipation Sodium Chloride (Ns Flush) 2 ml IV.FLUSH BID [facility] Last Admin: 04/05/18 21:29 Dose: Not Given Sodium Chloride (Ns Flush) 2 ml IV.FLUSH PRN PRN PRN Reason: FLUSH AFTER USING IV ACCESS Thiamine HCl (Vitamin B1) 100 mg PO DAILY [facility] Last Admin: 04/05/18 09:16 Dose: 100 mg Allergies/Adverse Reactions: Allergies Allergy/AdvReac Type Severity Reaction Status Date / Time Sulfa (Sulfonamide Allergy Severe Rash, Verified 04/01/18 10:22 Antibiotics) Generalized Review of Systems unobtainable due to endotracheal tube Physical Exam Vital signs: Vital Signs 04/05/18 07:52 04/05/18 08:00 04/05/18 10:00 Temperature 98.6 F Pulse Rate 82 70 66 Respiratory Rate 33 H 16 Blood Pressure 111/66 Pulse Oximetry 98 100 04/05/18 11:45 04/05/18 12:00 04/05/18 14:00 Temperature 98 F Pulse Rate 72 72 Respiratory Rate 22 Blood Pressure 125/73 Pulse Oximetry 98 97 04/05/18 16:00 04/05/18 17:09 04/05/18 17:23 Temperature 98 F Pulse Rate 93 H 93 H Respiratory Rate 22 23 Blood Pressure 147/74 H Pulse Oximetry 100 96 04/05/18 18:00 04/05/18 20:00 04/05/18 22:00 Temperature 98.9 F Pulse Rate 93 H 86 101 H Respiratory Rate 27 H Blood Pressure 104/55 L Pulse Oximetry 95 04/05/18 23:33 04/06/18 00:00 04/06/18 02:00 Temperature 98.6 F Pulse Rate 74 74 Respiratory Rate 19 23 Blood Pressure Pulse Oximetry 97 97 04/06/18 03:54 04/06/18 04:00 04/06/18 06:00 Temperature 98.5 F Pulse Rate 79 73 80 Respiratory Rate 21 17 Blood Pressure 106/54 L Pulse Oximetry 96 100 Intake & Output 10/04/05/18 04/06/18 06:59 18:59 06:59 Intake Total 799 / 799 854 / 854 1095.5 / 1095.5 Output Total 400 / 400 2600 / 2600 450 / 450 Balance 399 / 399 -1746 / -1746 645.5 / 645.5 Weight 71.5 kg 77.9 kg Intake: IV 208 / 208 154 / 154 470.5 / 470.5 Cerebyx Inj 200 MGPE In NS Inj 108 / 108 54 / 54 108 / 108 50 ML @ 216 mls/hr IV.SIG Q8HR [facility] Rx#:[id number] Vancomycin Inj 1,250 MG In NS 262.5 / 262.5 Inj 250 ML @ 250 mls/hr IV.SIG Q18H [facility] Rx#:[id number] Keppra 1000 mg/100 mL Premix 100 / 100 100 / 100 100 / 100 100 ML @ 400 mls/hr IV.SIG Q12H [facility] Rx#:[id number] Tube Feeding 471 / 471 500 / 500 425 / 425 Water Bolus Amount 120 / 120 200 / 200 200 / 200 Output: Urine 450 / 450 Stool 0 / 0 Urine Amount (Catheter) 400 / 400 2600 / 2600 Straight 400 / 400 2600 / 2600 Other: Date of Last Bowel Movement 04/01/18 04/01/18 04/01/18 Narrative: GENERAL: in NAD, le pitting edema SKIN: Warm and dry. HEAD: Atraumatic. Normocephalic. EYES: ou 2-3mm, sluggish ENT: No nasal bleeding or discharge. NECK: Trachea midline. No JVD. CARDIOVASCULAR: Regular rate and rhythm. le pitting edema RESPIRATORY: Intubated no accessory muscle use. GASTROINTESTINAL: Abdomen soft, non-tender, nondistended. MUSCULOSKELETAL: alert, follows with all 4 ext does give a crude credit card specialist bilaterally mild withdrawal lower extremities, OU 3 mm sluggishly reactive, no involuntary movements PSYCHIATRIC: Intubated - Constitutional no acute distress - Routine HEENT Exam Head: Present: normocephalic Eye: Present: EOMI - Urinary Catheter Management Female External Cath placed during this visit: no Indwelling Urethral Catheter Cath placed during this visit: yes, but has since been removed by the nurse Reason for continuing: Hourly intake/output Insertion date: 04/01/18 Removal date: 04/02/18 Removal time: 07:00 Straight Cath placed during this visit: yes Reason for continuing: Acute urinary retention Insertion date: 04/05/18 Insertion time: 17:00 Objective Laboratory Results - last 24 hr 04/06/18 04/06/18 00:28 05:40 POC Glucose 175 H 134 H Microbiology 04/02/18 10:57 Aerobic Blood Culture - Preliminary Blood - Peripheral No growth in 3 days Anaerobic Blood Culture - Preliminary No growth in 3 days 04/02/18 10:50 Aerobic Blood Culture - Preliminary Blood - Peripheral No growth in 3 days Anaerobic Blood Culture - Preliminary No growth in 3 days Review/Management - Diagnosis (1) Acute encephalopathy Code(s): G93.40 - Encephalopathy, unspecified Status: Acute Current Visit: Yes (2) Seizure Code(s): R56.9 - Unspecified convulsions Status: Acute Current Visit: Yes (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 Findings may be suggestive of PRES. posterior reversible leukoencephalopathy syndrome or reversible vasoconstriction syndrome. However no clear documentation of severe hypertension; this can also be caused by chemotherapeutic agents No clear documentation of any cardiac arrest or hypoxia although possibility however as there is no diffusion restriction on MRI scan I suspect hypoxia is less likely and her prognosis should be more favorable Exam improved today CSF studies reviewed neutrophilic leukocytosis, elevated protein normal glucose Gram stain negative for organisms follow-up rest of studies dil 8.6, alb 2.2, corrected 15.3 Recommendation alert and follows f/u free dilantin will reduce dose to 130 q8hrs to minimize sedative effect Extubation as feasible d/w rn
[2018-04-06] MEDS: Chlorhexidine 0.12% Oral Kit 15 ML UDC OROPHARYNG SCH (10:24)
[2018-04-06] MEDS: hydrALAZINE 50 MG Tablet PO SCH ×3 (10:25→17:24)
[2018-04-06] MEDS: Fosphenytoin Inj 130 MGPE in Sodium Chlor 0.9% Inj 50 ML IV.SIG SCH ×2 (10:27→13:16)
[2018-04-06] MEDS: Primidone 50 MG Tablet PO SCH ×3 (10:29→17:24)
[2018-04-06] MEDS: Folic Acid 1 MG Tablet PO SCH (10:29)
[2018-04-06] MEDS: dilTIAZem CD 120 MG Capsule PO SCH (10:29)
[2018-04-06] MEDS: Senna/Docusate Sodium 8.6/50 MG Tablet PO SCH (10:29)
[2018-04-06] MEDS: Metoprolol Tartrate 25 MG Tablet PO SCH ×3 (10:29→17:24)
[2018-04-06] MEDS: ALPRAZolam 0.25 MG Tablet PO SCH (10:29)
[2018-04-06] MEDS: Carboxymethylcellulose 0.5% Opth Drops 15 ML Bottle EACH EYE SCH (10:30)
[2018-04-06 10:44] LABS: Hematocrit 27.2 % (35.0-46.0); Hemoglobin 9.1 gm/dL (11.6-15.3); Mean Corpuscular HGB Conc 33.6 % (32.0-36.0); Mean Corpuscular Hemoglobin 30.3 pg (27.0-34.0); Mean Corpuscular Volume 90.2 fL (80.0-100.0); Mean Platelet Volume 8.2 fL (7.0-11.0); Platelet Count 165 th/mm3 (150-450); Red Blood Count 3.02 mil/mm3 (4.00-5.30); Red Cell Distribution Width 14.7 % (11.6-17.2); White Blood Count 5.4 th/mm3 (4.0-11.0)
[2018-04-06 11:09] LABS: Anion Gap 9 meq/L (5-15); Blood Urea Nitrogen 14 mg/dL (7-18); Calcium 8.1 mg/dL (8.5-10.1); Carbon Dioxide 23.2 meq/L (21.0-32.0); Chloride 113 meq/L (98-107); Glomerular Filtration Rate Greater Than 89 mL/min (>89); Glucose,Random 128 mg/dL (74-106); Phosphorus 3.5 mg/dL (2.5-4.9); Potassium 3.9 meq/L (3.5-5.1); Sodium 145 meq/L (136-145)
[2018-04-06 16:41] VITALS: BP 109/59; RESP 21; TEMP 97.6; O2SAT 98
--- NOTE | 2018-04-06 17:52 | P.PNCC ---
Subjective Subjective Remarks/Hospital Course: Disheveled 78-year-old woman found down by EMS who state a large number of pills were next to her. Neighbors last saw her the night before. Required intubation and mechanical ventilation because of an inability to protect her airway. Left side is flaccid and her eyes are deviated to the left side, with intermittent horizontal nystagmus. CAT scan of the head without acute injury. The remainder of the traumagram is negative. I have met her on her arrival to the [facility]. 04/01: Fever to 102.5 last night. Lumbar puncture performed earlier this morning and fluid sent for studies. Broaden ABX coverage. On Keppra and Cerebyx now. Family has made DNR. Patient has been deteriorating for several years. CT of the head was normal and MRI last night did not provide any additional information. We will pursue aggressively an infectious etiology at this time. 04/02: T-max 103.1. Currently 99.0. Lumbar puncture form as below. See documentation. Continues on acyclovir, ceftriaxone and vancomycin. Tube feeds will be initiated today. Currently off all sedation and moving non- purposefully in the bed Subjective 04/04: no changes. working towards SBTs and extubation. 04/05: failing cpap again for weakness. also appears more volume overloaded today. 04/06: more awake today. failed SBT again. approved by [facility]. Objective Vital Signs / I&O: Vital Signs 04/05/18 18:00 04/05/18 20:00 04/05/18 22:00 Temperature 37.2 C Pulse Rate 93 H 86 101 H Respiratory Rate 27 H Blood Pressure 104/55 L Pulse Oximetry 95 04/05/18 23:33 04/06/18 00:00 04/06/18 02:00 Temperature 37.0 C Pulse Rate 74 74 Respiratory Rate 19 23 Blood Pressure Pulse Oximetry 97 97 04/06/18 03:54 04/06/18 04:00 04/06/18 06:00 Temperature 36.9 C Pulse Rate 79 73 80 Respiratory Rate 21 17 Blood Pressure 106/54 L Pulse Oximetry 96 100 04/06/18 07:33 04/06/18 08:00 04/06/18 08:56 Temperature 36.3 C L Pulse Rate 72 70 Respiratory Rate 22 19 18 Blood Pressure 90/55 L Pulse Oximetry 100 98 04/06/18 10:00 04/06/18 11:09 04/06/18 12:00 Temperature 36.4 C Pulse Rate 82 76 Respiratory Rate 19 24 Blood Pressure 110/56 L Pulse Oximetry 95 99 04/06/18 14:00 04/06/18 15:25 04/06/18 16:00 Temperature 36.4 C Pulse Rate 80 88 90 Respiratory Rate 19 21 Blood Pressure 109/59 L Pulse Oximetry 96 98 Intake & Output 04/05/18 04/06/18 04/06/18 18:59 06:59 18:59 Intake Total 954 / 954 1095.5 / 1095.5 205.2 / 205.2 Output Total 2600 / 2600 450 / 450 Balance -1646 / -1646 645.5 / 645.5 205.2 / 205.2 Weight 77.9 kg Intake: IV 254 / 254 470.5 / 470.5 205.2 / 205.2 Cerebyx Inj 130 MGPE In NS Inj 54 / 54 108 / 108 105.2 / 105.2 50 ML @ 216 mls/hr IV.SIG Q8HR [facility] Rx#:[id number] Vancomycin Inj 1,250 MG In NS 262.5 / 262.5 Inj 250 ML @ 250 mls/hr IV.SIG Q18H [facility] Rx#:[id number] Rocephin Inj 2,000 MG In NS Inj 100 / 100 100 / 100 100 ML @ 200 mls/hr IV.SIG Q24H [facility] Rx#:[id number] Keppra 1000 mg/100 mL Premix 100 / 100 100 / 100 100 ML @ 400 mls/hr IV.SIG Q12H [facility] Rx#:[id number] Tube Feeding 500 / 500 425 / 425 Water Bolus Amount 200 / 200 200 / 200 Output: Urine 450 / 450 Stool 0 / 0 Urine Amount (Catheter) 2600 / 2600 Straight 2600 / 2600 Other: Date of Last Bowel Movement 04/01/18 04/01/18 04/01/18 Result Diagrams: 04/06/18 09:48 04/06/18 09:48 Objective Remarks: GENERAL: Disheveled 78-year-old woman, intubated. SKIN: Scattered chronic appearing ecchymosis on the both upper extremities along with left hip. HEAD: Atraumatic. Normocephalic. EYES: Pupils equal and round. No scleral icterus. No injection or drainage. ENT: No nasal bleeding or discharge. Mucous membranes pink and moist. Oral tracheal intubation in place. NECK: Cervical collar in place. No obvious abnormalities. CARDIOVASCULAR: Regular rate and rhythm. Normal S1-S2. No murmur appreciated. No JVD. RESPIRATORY: Mechanically ventilated. Coarse breath sounds with few mobile secretions. GASTROINTESTINAL: Mild abdominal distention, no guarding, bowel sounds are hypoactive MUSCULOSKELETAL: No obvious deformities. No edema. No obvious fractures. NEUROLOGICAL: Pupils 2 mm. up in a chair. follows commands. awake and alert today. Assessment and Plan - Assessment and Plan Plan: Neuro/Psych Acute encephalopathy -toxic metabolic versus EtOH withdrawal versus rule out PRES Glaucoma -nephew to bring her medications -MRI/MRA revealed bilateral posterior temporal/cerebellar and thalamic and posterior cerebellar abnormal signal. Decreased flow in the anterior right M2 segment. -Toxicology screen negative for acute findings -Minimize sedation -EEG - severely suppressed background may be consistent with encephalopathic process. No epileptiform features. Clinical correlation. -Neurology consultation with Dr. 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 Level was 2.310/10. Recheck 04/03 added -Lumbar puncture. Glucose was 43 but baseline glucose was 61. Gram stain negative. Many WBCs. See infectious disease Morphine sulfate 2 mg IV every 4 hours as needed pain Minimize sedation Respiratory Acute respiratory failure 2.8 x 2.1 x 0.8 cm mediastinal mass -PRVC Ventilator bundle Albuterol/ipratropium aerosols every 6 hours with albuterol aerosols every 2 hours as needed dyspnea Spontaneous breathing trials when clinically indicated Will likely need needle biopsy of mediastinal mass if able Cardiovascular Severe pulmonary hypertension Essential hypertensionn Cardiogram revealed EF 60-60%. Mild TR. Pulmonary arterial pressure 62.5 mmHg -Tolerate blood pressure 130 - 180 Currently on hydralazine 50 mg 3 times daily metoprolol tartrate 25 mg 3 times daily Renal/ Acute kidney injury Monitor urine output Accurate I's and O's Check BMP in a.m. 04/03 No indication for Henson catheter small dose lasix today. GI Elevated AST Hypoalbuminemia Hepatic steatosis Left liver cyst -Start vital 1.5 goal 45 cc an hour -Lansoprazole for GI prophylaxis -Docusate serum/senna 1 tablet twice daily for bowel regimen -P.o. meds down tube is acceptable Hematology Normocytic anemia Thrombocytopenia History of skin cancer -Serial hemoglobin determination and follow trends. -No indication for transfusion of blood products at this time ID -Culture for fevers as indicated -No evidence of infection at this time -Culture CSF -many WBCs no organisms identified- -Blood cultures x2, sputum and UA and influenza 04/02 no growth to date Currently on vancomycin, ceftriaxone 04/03 discontinued acyclovir as HSV negative ENDO Elevated TSH TSH was 7.1. Normal T4. Recheck 6-8 weeks Sliding scale insulin to maintain euglycemia with aspart insulin every 6 hours MSK: Osteopenia Scoliosis retrolisthesis C4/5 Anterolisthesis C7/T1 PT evaluate and treat FEN Acute hypophosphatemia Replace potassium per ICU electrolyte protocol. Prophylaxis -Chemical DVT prophylaxis with heparin subcu -Lansoprazole for GI ulcer prophylaxis Lines -Peripherals approved by [facility] for slow vent wean.
--- NOTE | 2018-04-06 17:57 | P.DS ---
Date of admission: 03/31/18 09:34 Primary care physician: UNKNOWN Attending physician on discharge: Sudhakar Ordonez Anticipated date of discharge: 04/06/18 Brief History from admission: Disheveled 78-year-old woman found down by EMS who state a large number of pills were next to her. Neighbors last saw her the night before. Required intubation and mechanical ventilation because of an inability to protect her airway. Left side is flaccid and her eyes are deviated to the left side, with intermittent horizontal nystagmus. CAT scan of the head without acute injury. The remainder of the traumagram is negative. I have met her on her arrival to the [facility]. DS: Diagnosis - Discharge Diagnosis (1) Seizure Status: Acute Diagnosis: Principal (2) Acute encephalopathy Status: Acute Diagnosis: Principal (3) Reversible posterior leukoencephalopathy Status: Acute Diagnosis: Principal (4) Respiratory distress Status: Acute Diagnosis: Principal DS: Summary Hospital Course: Disheveled 78-year-old woman found down by EMS who state a large number of pills were next to her. Neighbors last saw her the night before. Required intubation and mechanical ventilation because of an inability to protect her airway. Left side is flaccid and her eyes are deviated to the left side, with intermittent horizontal nystagmus. CAT scan of the head without acute injury. The remainder of the traumagram is negative. I have met her on her arrival to the [facility]. 04/01: Fever to 102.5 last night. Lumbar puncture performed earlier this morning and fluid sent for studies. Broaden ABX coverage. On Keppra and Cerebyx now. Family has made DNR. Patient has been deteriorating for several years. CT of the head was normal and MRI last night did not provide any additional information. We will pursue aggressively an infectious etiology at this time. 04/02: T-max 103.1. Currently 99.0. Lumbar puncture form as below. See documentation. Continues on acyclovir, ceftriaxone and vancomycin. Tube feeds will be initiated today. Currently off all sedation and moving non- purposefully in the bed 04/04: no changes. working towards SBTs and extubation. 04/05: failing cpap again for weakness. also appears more volume overloaded today. 04/06: more awake today. failed SBT again. approved by [facility] - Time Spent with Patient Total time spent providing and/or coordinating discharge services: Greater than 30 minutes Exam Vital signs: Vital Signs 04/05/18 18:00 04/05/18 20:00 04/05/18 22:00 Temperature 37.2 C Pulse Rate 93 H 86 101 H Respiratory Rate 27 H Blood Pressure 104/55 L Pulse Oximetry 95 04/05/18 23:33 04/06/18 00:00 04/06/18 02:00 Temperature 37.0 C Pulse Rate 74 74 Respiratory Rate 19 23 Blood Pressure Pulse Oximetry 97 97 04/06/18 03:54 04/06/18 04:00 04/06/18 06:00 Temperature 36.9 C Pulse Rate 79 73 80 Respiratory Rate 21 17 Blood Pressure 106/54 L Pulse Oximetry 96 100 04/06/18 07:33 04/06/18 08:00 04/06/18 08:56 Temperature 36.3 C L Pulse Rate 72 70 Respiratory Rate 22 19 18 Blood Pressure 90/55 L Pulse Oximetry 100 98 04/06/18 10:00 04/06/18 11:09 04/06/18 12:00 Temperature 36.4 C Pulse Rate 82 76 Respiratory Rate 19 24 Blood Pressure 110/56 L Pulse Oximetry 95 99 04/06/18 14:00 04/06/18 15:25 04/06/18 16:00 Temperature 36.4 C Pulse Rate 80 88 90 Respiratory Rate 19 21 Blood Pressure 109/59 L Pulse Oximetry 96 98 Intake & Output 04/05/18 04/06/18 04/06/18 18:59 06:59 18:59 Intake Total 954 / 954 1095.5 / 1095.5 205.2 / 205.2 Output Total 2600 / 2600 450 / 450 Balance -1646 / -1646 645.5 / 645.5 205.2 / 205.2 Weight 77.9 kg Intake: IV 254 / 254 470.5 / 470.5 205.2 / 205.2 Cerebyx Inj 130 MGPE In NS Inj 54 / 54 108 / 108 105.2 / 105.2 50 ML @ 216 mls/hr IV.SIG Q8HR [facility] Rx#:[id number] Vancomycin Inj 1,250 MG In NS 262.5 / 262.5 Inj 250 ML @ 250 mls/hr IV.SIG Q18H [facility] Rx#:[id number] Rocephin Inj 2,000 MG In NS Inj 100 / 100 100 / 100 100 ML @ 200 mls/hr IV.SIG Q24H [facility] Rx#:[id number] Keppra 1000 mg/100 mL Premix 100 / 100 100 / 100 100 ML @ 400 mls/hr IV.SIG Q12H [facility] Rx#:[id number] Tube Feeding 500 / 500 425 / 425 Water Bolus Amount 200 / 200 200 / 200 Output: Urine 450 / 450 Stool 0 / 0 Urine Amount (Catheter) 2600 / 2600 Straight 2600 / 2600 Other: Date of Last Bowel Movement 04/01/18 04/01/18 04/01/18 Results Procedures completed during hospitalization: mri Labs on day of discharge: Labs from last 24 hours 04/06/18 04/06/18 04/06/18 17:26 09:48 09:48 WBC 5.4 RBC 3.02 L Hgb 9.1 L Hct 27.2 L MCV 90.2 MCH 30.3 MCHC 33.6 RDW 14.7 Plt Count 165 MPV 8.2 Sodium 145 Potassium 3.9 Chloride 113 H Carbon Dioxide 23.2 Anion Gap 9 BUN 14 Creatinine 0.42 L Estimated GFR Greater than 89 POC Glucose 151 H Random Glucose 128 H Calcium 8.1 L Phosphorus 3.5 D Magnesium 2.0 Phenytoin 04/06/18 04/06/18 04/06/18 09:48 05:40 00:28 WBC RBC Hgb Hct MCV MCH MCHC RDW Plt Count MPV Sodium Potassium Chloride Carbon Dioxide Anion Gap BUN Creatinine Estimated GFR POC Glucose 134 H 175 H Random Glucose Calcium Phosphorus Magnesium Phenytoin 7.0 L Preliminary micro results at discharge 04/02/18 10:57 Aerobic Blood Culture - Preliminary Blood - Peripheral No growth in 4 days Anaerobic Blood Culture - Preliminary No growth in 4 days 04/02/18 10:50 Aerobic Blood Culture - Preliminary Blood - Peripheral No growth in 4 days Anaerobic Blood Culture - Preliminary No growth in 4 days - Impressions ITS Impressions Neck MRA 03/31/18 00:00 CONCLUSION: Tortuous internal carotid arteries without significant stenosis identified. Percent stenosis is calculated using the diameter of the stenotic region over the diameter of the normal distal internal carotid artery Pelvis X-Ray 03/31/18 08:49 CONCLUSION: The bony structures are grossly intact. A CT Abdomen and pelvis will be performed for further evaluation. Abdomen/Pelvis CT 03/31/18 08:57 CONCLUSION: 1. No evidence of visceral injury. 2. Mild hepatic steatosis with simple appearing cyst in the left lobe of liver. 3. Osteopenia, degenerative change and scoliosis are present. Chest CT 03/31/18 08:57 CONCLUSION: 1. No acute visceral injury. 2. 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 3. 3 moderate to severe compression fracture deformities in the lower thoracic spine with sclerosis. These likely are chronic. Cervical Spine CT 03/31/18 09:09 CONCLUSION: 1. No acute fracture. 2. Mild anterior spondylolisthesis of C7 on T1 and mild retrolisthesis of C4 on C5. 3. Degenerative disc changes. Head CT 03/31/18 09:09 CONCLUSION: 1. Negative trauma study. . Head MRI 03/31/18 18:01 CONCLUSION: Abnormal signal seen in the montanez matter of the sulci throughout the cerebral hemispheres, thalami, and at the posterior central aspects of the cerebellar hemispheres. The symmetric appearance is concerning for hypoxia. An area of acute infarction on the diffusion-weighted images is not seen. Head MRA 03/31/18 18:01 CONCLUSION: Irregularity and decreased caliber at the anterior right M2 segment. There is a small filling defect. However the distal flow is present. Chest X-Ray 04/04/18 06:00 CONCLUSION: Support apparatus unchanged. Persistent mild basilar airspace disease. Small effusions. Discharge Plan - Discharge Disposition Patient Disposition: 70 Transfer To Other Facility - Discharge Condition Condition: Stable - Discharge Order Discharge Orders: Discharge Order (Routine); Ordered 04/06/18 Ordered By: Sudhakar Ordonez - Discharge Details Anticipated Discharge Date: 04/06/18 Dis[facility] Comment[facility] Primary Care Provider: UNKNOWN, Attending Provider: Dimitrios Olivas Other Providers: James Dominique MD ; [facility]
[2018-04-06 18:26] VITALS: PULSE 76
[2018-04-07] MEDS ORDERED: Pharmacy Ordered Lab Info OTHER ONE (17:45)
== END 2018-04-06 20:00 | disposition short-term general hospital (02) ==
LOC: NEPI 08:48 → NEDA 09:34 → EDBD 09:34 → NEDA 10:00 → N03 10:02
PROVIDERS: ADMIT Surgery Surgical Critical Care; ATTEND Surgery Surgical Critical Care